=== PATIENT | female | born 1945 | race Caucasian/White ===

== ENCOUNTER 2016-12-22 13:12 | Day surgery (SDC) | payer MEDICARE ==
[2016-12-17 14:57] VITALS: BMI 28.3
[~2016-12-22 13:12] MED LIST: DEXAMETHASONE SOD PHOSPHATE 10 MG/ML 1 ML VIAL IV ONE; HYDROmorphone 1 MG/ML 1 ML SYRINGE IVP PRN; LACTATED RINGERS 1,000 ML IV SCH; ONDANSETRON 4 MG/2 ML VIAL IVP ONE
[2016-12-22] MEDS: PHENYLEPHRINE 10% OPHTH DROPS 5 ML BTL OP ONE ×4 (13:28→13:45)
[2016-12-22] MEDS: FLURBIPROFEN 0.03% OPHTH DROPS 2.5 ML BTL OP ONE ×3 (13:31→13:47)
[2016-12-22] MEDS: CYCLOPENTOLATE 1% OPHTH SOLN 2 ML BTL OP ONE ×3 (13:34→13:54)
[2016-12-22] MEDS ORDERED: LIDOCAINE 1% 20 ML VIAL (10MG/ML) FOR IV START INTRADERMA ONE (13:36)
[2016-12-22 13:52] VITALS: RESP 16
[2016-12-22] MEDS ORDERED: PROPOFOL 10 MG/ML 20 ML VIAL IV ONE (14:34)
[2016-12-22] MEDS ORDERED: LIDOCAINE 1% INJ 10MG/ML (20 ML MDV) ONE (14:34)
[2016-12-22] MEDS ORDERED: BALANCED SALT IRRIG SOLN COMB2 15 ML IRRIG.SOLN INTRAOCULA ONE (14:39)
[2016-12-22] MEDS ORDERED: HYALURONATE SODIUM INTRAOCULAR 1 EACH SYRINGE (10MG/ML) INTRAOCULA ONE (14:40)
[2016-12-22] MEDS ORDERED: EPINEPHrine (PF) 0.5 ML in BALANCED SALT IRRIG SOLN COMB2 500 ML IRRIGATION ONE (14:40)
--- NOTE | 2016-12-22 14:55 | P.OP ---
Date of Procedure: 12/22/16 Procedure(s) Performed: PREOPERATIVE DIAGNOSIS: Cataract, left eye. POSTOPERATIVE DIAGNOSIS: Cataract, left eye. OPERATION: Phacoemulsification cataract, left eye. DESCRIPTION OF PROCEDURE: The patient was taken to the preoperative holding area. Intravenous Propofol was given so as to bring about adequate sedation. The following mixture was given for local anesthesia: 5 mL of 2% lidocaine, 5 mL of 0.75% Marcaine, and 1 mL of Wydase. Approximately 4 mL was injected in the retrobulbar space of the surgical eye. Additional 1 mL was then directed to the temporal area of the surgical eye. This was performed to allow adequate neurological block of the facial muscles. The patient was revived and then taken into the operative room. The patient was prepped and draped in the usual sterile manner for the operative eye. A lid speculum was put into position. The conjunctiva was resected back from the limbus in the 12 o'clock position. Bleeding was controlled with electrocautery. A #69 blade was then used and a half-thickness scleral incision approximately 1-mm posterior to the limbus was made on bare sclera. This was shelved in the clear cornea using a crescent knife. Next a 15-degree blade was used to make a stab incision at the 3 o' clock position at the corneolimbal interface. Keratome blade was then used and the superior wound was extended into the anterior chamber. Viscoelastic was injected into the anterior chamber and to maintain its form. Next, a cystotome was used and a continuous anterior capsulotomy was made without difficulty. Hydrodissection using a blunt cannula and BSS was performed. Phaco probe was then employed and a groove extending from 12 to 6 o'clock in the lens was created. A Benedicto wand was used through the stab incision so as to perform a divide and conquer technique. Next an irrigation aspiration probe was utilized and any residual cortex was removed from the eye. Again, viscoelastic was injected into the anterior chamber. An Choco posterior chamber lens implant was placed in the cartridge and injected into the anterior chamber without difficulty. The [employer] hook was utilized to spin the lens into position and this was again performed without any difficulty. The irrigation and aspiration probe was again employed and any residual viscoelastic was removed from the eye. Then BSS was injected into the limbal stab incision and the anterior chamber re-inflated. The conjunctiva was reapproximated using electrocautery. One drop of 0.25% Timoptic was placed over the corneal along with TobraDex ophthalmic ointment. Two sterile patches and a Grewal eye shield were taped into position. The patient was transported to the recovery room in stable condition. Pathology: none sent Condition: stable Disposition: same day
[2016-12-22 15:13] VITALS: TEMP 97.5
[2016-12-22 15:15] VITALS: BP 113/63; PULSE 73
[2016-12-22] MEDS ORDERED: BUPIVACAINE (PF) 0.75% 5 ML, LIDOCAINE 4% (PF) 5 ML, HYALURONIDASE, HUMAN RECOMB 150 UNIT MISCELLANE ONE ×3 (23:00)
[2016-12-22] MEDS ORDERED: GENTAMICIN/PREDNISOL AC OPHTH OINT 3.5GM OPHTHALMIC ONE (23:00)
[2016-12-22] MEDS ORDERED: TIMOLOL 0.5% OPHTH SOLN (PF) 0.2 ML DROPERETTE OP ONE (23:00)
== END 2016-12-22 15:28 | disposition home or self-care (01) ==
LOC: OR 13:12
PROVIDERS: ATTEND Ophthalmology
DX: H26.9 Unspecified cataract (principal); I10 Essential (primary) hypertension; E78.5 Hyperlipidemia, unspecified; J44.9 Chronic obstructive pulmonary disease, unspecified; J45.909 Unspecified asthma, uncomplicated; Z87.891 Personal history of nicotine dependence; G47.33 Obstructive sleep apnea (adult) (pediatric); G40.909 Epilepsy, unspecified, not intractable, without status epilepticus; K21.9 Gastro-esophageal reflux disease without esophagitis; Z90.2 Acquired absence of lung [part of]; Z85.118 Personal history of other malignant neoplasm of bronchus and lung; Z79.51 Long term (current) use of inhaled steroids; Z79.899 Other long term (current) drug therapy; Z91.09 Other allergy status, other than to drugs and biological substances
CPT/HCPCS: 66984; V2632; J2001 ×2; J3470; J0171; J2704; 99152; 99153

== ENCOUNTER 2017-02-16 11:06 | Day surgery (SDC) | payer MEDICARE ==
[2017-02-10 13:02] VITALS: BMI 30.7
[~2017-02-16 11:06] MED LIST changes: -DEXAMETHASONE SOD PHOSPHATE 10 MG/ML 1 ML VIAL IV ONE; -HYDROmorphone 1 MG/ML 1 ML SYRINGE IVP PRN; +LIDOCAINE 1% 20 ML VIAL (10MG/ML) FOR IV START INTRADERMA ONE; -ONDANSETRON 4 MG/2 ML VIAL IVP ONE
[2017-02-16] MEDS: PHENYLEPHRINE 10% OPHTH DROPS 5 ML BTL OP ONE ×3 (11:19→11:37)
[2017-02-16] MEDS: FLURBIPROFEN 0.03% OPHTH DROPS 2.5 ML BTL OP ONE ×2 (11:21→11:40)
[2017-02-16] MEDS: CYCLOPENTOLATE 1% OPHTH SOLN 2 ML BTL OP ONE ×3 (11:24→11:44)
[2017-02-16 11:29] VITALS: RESP 16; TEMP 99.1
[2017-02-16] MEDS ORDERED: PROPOFOL 10 MG/ML 20 ML VIAL IV ONE (12:07)
[2017-02-16] MEDS ORDERED: BALANCED SALT IRRIG SOLN COMB2 15 ML IRRIG.SOLN INTRAOCULA ONE (12:15)
[2017-02-16] MEDS ORDERED: HYALURONATE SODIUM INTRAOCULAR 1 EACH SYRINGE (10MG/ML) INTRAOCULA ONE (12:16)
[2017-02-16] MEDS ORDERED: EPINEPHrine (PF) 0.5 ML in BALANCED SALT IRRIG SOLN COMB2 500 ML IRRIGATION ONE (12:17)
--- NOTE | 2017-02-16 12:30 | P.OP ---
Date of Procedure: 02/16/17 Procedure(s) Performed: PREOPERATIVE DIAGNOSIS: Cataract, right eye. POSTOPERATIVE DIAGNOSIS: Cataract, right eye. OPERATION: Phacoemulsification cataract, right eye. DESCRIPTION OF PROCEDURE: The patient was taken to the preoperative holding area. Intravenous Propofol was given so as to bring about adequate sedation. The following mixture was given for local anesthesia: 5 mL of 2% lidocaine, 5 mL of 0.75% Marcaine, and 1 mL of Wydase. Approximately 4 mL was injected in the retrobulbar space of the surgical eye. Additional 1 mL was then directed to the temporal area of the surgical eye. This was performed to allow adequate neurological block of the facial muscles. The patient was revived and then taken into the operative room. The patient was prepped and draped in the usual sterile manner for the operative eye. A lid speculum was put into position. The conjunctiva was resected back from the limbus in the 12 o'clock position. Bleeding was controlled with electrocautery. A #69 blade was then used and a half-thickness scleral incision approximately 1-mm posterior to the limbus was made on bare sclera. This was shelved in the clear cornea using a crescent knife. Next a 15-degree blade was used to make a stab incision at the 3 o' clock position at the corneolimbal interface. Keratome blade was then used and the superior wound was extended into the anterior chamber. Viscoelastic was injected into the anterior chamber and to maintain its form. Next, a cystotome was used and a continuous anterior capsulotomy was made without difficulty. Hydrodissection using a blunt cannula and BSS was performed. Phaco probe was then employed and a groove extending from 12 to 6 o'clock in the lens was created. A Benedicto wand was used through the stab incision so as to perform a divide and conquer technique. Next an irrigation aspiration probe was utilized and any residual cortex was removed from the eye. Again, viscoelastic was injected into the anterior chamber. An Choco posterior chamber lens implant was placed in the cartridge and injected into the anterior chamber without difficulty. The Sin[employer] [place] hook was utilized to spin the lens into position and this was again performed without any difficulty. The irrigation and aspiration probe was again employed and any residual viscoelastic was removed from the eye. Then BSS was injected into the limbal stab incision and the anterior chamber re-inflated. The conjunctiva was reapproximated using electrocautery. One drop of 0.25% Timoptic was placed over the corneal along with TobraDex ophthalmic ointment. Two sterile patches and a Grewal eye shield were taped into position. The patient was transported to the recovery room in stable condition. Pathology: none sent Condition: stable Disposition: same day
[2017-02-16 12:52] VITALS: BP 126/76; PULSE 70
[2017-02-16] MEDS ORDERED: BUPIVACAINE (PF) 0.75% 5 ML, LIDOCAINE 4% (PF) 5 ML, HYALURONIDASE, HUMAN RECOMB 150 UNIT MISCELLANE ONE ×3 (23:00)
[2017-02-16] MEDS ORDERED: GENTAMICIN/PREDNISOL AC OPHTH OINT 3.5GM OPHTHALMIC ONE (23:00)
[2017-02-16] MEDS ORDERED: TIMOLOL 0.5% OPHTH SOLN (PF) 0.2 ML DROPERETTE OP ONE (23:00)
== END 2017-02-16 13:10 | disposition home or self-care (01) ==
LOC: OR 11:06
PROVIDERS: ATTEND Ophthalmology
DX: H25.11 Age-related nuclear cataract, right eye (principal); I10 Essential (primary) hypertension; E78.5 Hyperlipidemia, unspecified; J44.9 Chronic obstructive pulmonary disease, unspecified; J45.909 Unspecified asthma, uncomplicated; G47.33 Obstructive sleep apnea (adult) (pediatric); K21.9 Gastro-esophageal reflux disease without esophagitis; R56.9 Unspecified convulsions; Z86.73 Personal history of transient ischemic attack (TIA), and cerebral infarction without residual deficits; Z87.891 Personal history of nicotine dependence; Z79.51 Long term (current) use of inhaled steroids; Z79.899 Other long term (current) drug therapy
CPT/HCPCS: 66984; V2632; J2001; J3470; J0171; J2704

== ENCOUNTER 2020-03-31 17:30 | Inpatient (IN) | payer MEDICARE ==
[2020-03-31 18:20] LABS: Basophils # (A) 0.1 k/uL (0-0.2); Basophils % (A) 1 %; Eosinophils # (A) 0.2 k/uL (0-0.7); Eosinophils % (A) 4 %; HCT 38.9 % (34.0-46.0); HGB 12.4 gm/dL (11.4-16.0); Lymphocytes # (A) 1.4 k/uL (1.0-4.8); Lymphocytes % (A) 25 %; MCH 27.9 pg (25.0-35.0); MCHC 31.9 g/dL (31.0-37.0); MCV 87.6 fL (80.0-100.0); Mean Platelet Volume 7.9; Monocytes # (A) 0.3 k/uL (0-1.0); Monocytes % (A) 6 %; Neutrophils # (A) 3.4 k/uL (1.3-7.7); Neutrophils % (A) 62 %; Platelet Count 219 k/uL (150-450); RBC 4.44 m/uL (3.80-5.40); RDW 14.1 % (11.5-15.5); WBC 5.5 k/uL (3.8-10.6)
[2020-03-31 18:28] LABS: ALT 17 U/L (4-34); AST 37 U/L (14-36); African American GFR (CKD) >90 (>60 ml/min/1.73 sqM); Albumin 3.6 g/dL (3.5-5.0); Alkaline Phosphatase 50 U/L (38-126); Anion Gap 9 mmol/L; Blood Urea Nitrogen 20 mg/dL (7-17); Calcium 9.1 mg/dL (8.4-10.2); Carbon Dioxide 23 mmol/L (22-30); Chloride 104 mmol/L (98-107); Glucose 90 mg/dL (74-99); Non-African American GFR(CKD) 88 (>60 ml/min/1.73 sqM); Potassium 4.4 mmol/L (3.5-5.1); Sodium 136 mmol/L (137-145); Total Bilirubin 0.4 mg/dL (0.2-1.3); Total Protein 6.9 g/dL (6.3-8.2)
[2020-03-31 18:33] LABS: INR 0.9 (<1.2); Partial Thromboplastin Time 24.3 sec (22.0-30.0); Prothrombin Time 9.9 sec (9.0-12.0)
--- NOTE | 2020-03-31 18:39 | ED ---
Dizziness HPI - General Chief Complaint: Syncope Stated Complaint: Syncope Time Seen by Provider: 03/31/20 17:40 Source: EMS Mode of arrival: EMS Limitations: no limitations - History of Present Illness Initial Comments: The patient is a 74-year-old female past medical history of COPD, on cancer in remission who presents to the emergency room after she had a syncopal episode. Son is at bedside and helps provide history. States that he was helping her set up a video Chat. He then noted that his mother's eyes rolled back in her head. She went completely unresponsive. She slipped down off the chair however the patient lowered her to the ground. He denies that he had her head. No seizure- like activity. No bowel or bladder incontinence. The time EMS arrived 10 minutes later the patient was "lethargic." she arrives to the emergency room doc rt and oriented. Denies having any chest pain or the incident. Does admit to shortness of breath. States this is chronic for her secondary to her diagnosis of COPD and previous lobectomy for lung cancer however states her breathing has been much more labored for her. She also reports to right lower calf cramping. Denies history of DVT or PE. No or externally swelling. Does report to a mild headache. No visual changes. Denies any unilateral numbness or weakness. No previous history of cardiac disease. No other alleviating, precipitating or modifying factors - Related Data Home Medications Medication Instructions Recorded Confirmed Omeprazole [PriLOSEC] 20 mg PO BID 04/23/16 03/31/20 Simvastatin [Zocor] 40 mg PO HS 04/23/16 03/31/20 Albuterol Sulfate [Ventolin HFA] 2 puff INHALATION RT-Q6H PRN 03/31/20 03/31/20 Alendronate Sodium [Fosamax] 70 mg PO TH 03/31/20 03/31/20 Aspirin EC [Ecotrin Low Dose] 81 mg PO DAILY 03/31/20 03/31/20 Difluprednate [Durezol] 2 drop RIGHT EYE BID 03/31/20 03/31/20 Escitalopram [Lexapro] 10 mg PO HS 03/31/20 03/31/20 Multivitamins, Thera [Multivitamin 1 tab PO DAILY 03/31/20 03/31/20 (formulary)] Tiotropium Br/Olodaterol HCl 2 spray INHALATION RT-DAILY 03/31/20 03/31/20 [Stiolto Respimat Inhal [place]] Allergies Allergy/AdvReac Type Severity Reaction Status Date / Time adhesive tape Allergy Rash/Hives Verified 03/31/20 21:59 Review of Systems ROS Statement: Those systems with pertinent positive or pertinent negative responses have been documented in the HPI. ROS Other: All systems not noted in ROS Statement are negative. Past Medical History Past Medical History: Asthma, Cancer, COPD, CVA/TIA, GERD/Reflux, Hyperlipidemia, Hypertension, Osteoarthritis (OA), Seizure Disorder, Sleep Apnea/CPAP/BIPAP Additional Past Medical History / Comment(s): hx of lung cancer with upper right lobe removed & received chemo & radiation tx (36 tx - last txs December 2015), barretts esophagus, hiatal hernia, incont of urine wears depends ,emphysema,tia, migraines, no c-pap machine, DDD. , SOB with activity. History of Any Multi-Drug Resistant Organisms: None Reported Past Surgical History: Bladder Surgery, Heart Catheterization, Hysterectomy, Tonsillectomy Additional Past Surgical History / Comment(s): rectocele,cystocele(3 sx total has mesh patch), lasik eye sx, cyst removed lt breast-benign,blephoplasty, sep 05 2015 had upper lobe rt lung removed for stage 3 cancer.had chemo and radiation - 36 tx. EPIDURAL INJ TO back. Past Anesthesia/Blood Transfusion Reactions: No Reported Reaction, Motion Sickness Past Psychological History: Depression Smoking Status: Former smoker - Past Family History Father Family Medical History: Liver Disease Additional Family Medical History / Comment(s): CIRRHOIS OF THE LIVER Mother Family Medical History: Congestive Heart Failure (CHF) Additional Family Medical History / Comment(s): LUNG DISEASE,02 DE[employer]ENDANT-SMOKED FROM AGE 13 TILL AGE 85. General Exam Limitations: no limitations Course Vital Signs 03/31/20 03/31/20 03/31/20 17:38 21:13 21:22 Temperature 98.2 F 98.0 F 98 F Pulse Rate 87 81 81 Respiratory 18 18 16 Rate Blood Pressure 114/84 136/76 136/78 O2 Sat by Pulse 93 L 97 98 Oximetry Medical Decision Making - Medical Decision Making Upon arrival the patient was placed into room 2. A thorough history and physica l exam was performed here patient is placed on supplemental oxygen. Laboratory studies were conducted. D-dimer elevated at 0.65. Urinalysis was positive for nitrates, small leukocyte esterase with many bacteria. Patient was given a dose of a [place] attics. Because of reported calf pain, shortness of breath and syncope did perform a CT of the patient's chest. CT of the brain was also performed. Chest CT demonstrates no pulmonary embolism. Pleural thickening an infiltrate and atelectasis and significant volume loss of the right upper lobe. Recurrent tumor could be considered. CT of the brain demonstrates no acute intracranial normality. I did discuss results with the patient. I did recommend hospital admission for echo, carotid studies for which the patient did agree. I discussed the case with Dr. Morales except admission. The patient was then transferred to floor in stable condition - Lab Data Result diagrams: 03/31/20 17:55 03/31/20 17:55 Lab Results 03/31/20 03/31/20 03/31/20 Range/Units 17:55 17:55 17:55 WBC 5.5 (3.8-10.6) k/uL RBC 4.44 (3.80-5.40) m/uL Hgb 12.4 (11.4-16.0) gm/dL Hct 38.9 (34.0-46.0) % MCV 87.6 (80.0-100.0) fL MCH 27.9 (25.0-35.0) pg MCHC 31.9 (31.0-37.0) g/dL RDW 14.1 (11.5-15.5) % Plt Count 219 (150-450) k/uL Neutrophils % 62 % Lymphocytes % 25 % Monocytes % 6 % Eosinophils % 4 % Basophils % 1 % Neutrophils # 3.4 (1.3-7.7) k/uL Lymphocytes # 1.4 (1.0-4.8) k/uL Monocytes # 0.3 (0-1.0) k/uL Eosinophils # 0.2 (0-0.7) k/uL Basophils # 0.1 (0-0.2) k/uL PT 9.9 (9.0-12.0) sec INR 0.9 (<1.2) APTT 24.3 (22.0-30.0) sec D-Dimer 0.65 H (<0.60) mg/L FEU Sodium 136 L (137-145) mmol/L Potassium 4.4 (3.5-5.1) mmol/L Chloride 104 (98-107) mmol/L Carbon Dioxide 23 (22-30) mmol/L Anion Gap 9 mmol/L BUN 20 H (7-17) mg/dL Creatinine 0.64 (0.52-1.04) mg/dL Est GFR (CKD-EPI)AfAm >90 (>60 ml/min/1.73 sqM) Est GFR (CKD-EPI)NonAf 88 (>60 ml/min/1.73 sqM) Glucose 90 (74-99) mg/dL Calcium 9.1 (8.4-10.2) mg/dL Total Bilirubin 0.4 (0.2-1.3) mg/dL AST 37 H (14-36) U/L ALT 17 (4-34) U/L Alkaline Phosphatase 50 (38-126) U/L Troponin I (0.000-0.034) ng/mL Total Protein 6.9 (6.3-8.2) g/dL Albumin 3.6 (3.5-5.0) g/dL Urine Color Urine Appearance (Clear) Urine pH (5.0-8.0) Ur Specific [place] (1.001-1.035) Urine Protein (Negative) Urine Glucose (UA) (Negative) Urine Ketones (Negative) Urine Blood (Negative) Urine Nitrite (Negative) Urine Bilirubin (Negative) Urine Urobilinogen (<2.0) mg/dL Ur Leukocyte Esterase (Negative) Urine RBC (0-5) /hpf Urine WBC (0-5) /hpf Urine Bacteria (None) /hpf Hyaline Casts (0-2) /lpf Urine Mucus (None) /hpf 03/31/20 03/31/20 Range/Units 17:55 19:00 WBC (3.8-10.6) k/uL RBC (3.80-5.40) m/uL Hgb (11.4-16.0) gm/dL Hct (34.0-46.0) % MCV (80.0-100.0) fL MCH (25.0-35.0) pg MCHC (31.0-37.0) g/dL RDW (11.5-15.5) % Plt Count (150-450) k/uL Neutrophils % % Lymphocytes % % Monocytes % % Eosinophils % % Basophils % % Neutrophils # (1.3-7.7) k/uL Lymphocytes # (1.0-4.8) k/uL Monocytes # (0-1.0) k/uL Eosinophils # (0-0.7) k/uL Basophils # (0-0.2) k/uL PT (9.0-12.0) sec INR (<1.2) APTT (22.0-30.0) sec D-Dimer (<0.60) mg/L FEU Sodium (137-145) mmol/L Potassium (3.5-5.1) mmol/L Chloride (98-107) mmol/L Carbon Dioxide (22-30) mmol/L Anion Gap mmol/L BUN (7-17) mg/dL Creatinine (0.52-1.04) mg/dL Est GFR (CKD-EPI)AfAm (>60 ml/min/1.73 sqM) Est GFR (CKD-EPI)NonAf (>60 ml/min/1.73 sqM) Glucose (74-99) mg/dL Calcium (8.4-10.2) mg/dL Total Bilirubin (0.2-1.3) mg/dL AST (14-36) U/L ALT (4-34) U/L Alkaline Phosphatase (38-126) U/L Troponin I <0.012 (0.000-0.034) ng/mL Total Protein (6.3-8.2) g/dL Albumin (3.5-5.0) g/dL Urine Color Yellow Urine Appearance Clear (Clear) Urine pH 5.0 (5.0-8.0) Ur Specific [place] 1.019 (1.001-1.035) Urine Protein Trace H (Negative) Urine Glucose (UA) Negative (Negative) Urine Ketones Negative (Negative) Urine Blood Negative (Negative) Urine Nitrite Positive H (Negative) Urine Bilirubin Negative (Negative) Urine Urobilinogen <2.0 (<2.0) mg/dL Ur Leukocyte Esterase Small H (Negative) Urine RBC 1 (0-5) /hpf Urine WBC 7 H (0-5) /hpf Urine Bacteria Many H (None) /hpf Hyaline Casts 1 (0-2) /lpf Urine Mucus Rare H (None) /hpf - EKG Data EKG Comments: EKG demonstrates a normal sinus rhythm with ventricular rate of 85. AR 144. Distress 86. QTC of 466. No acute ST segment elevations or depressions concern ing for ischemic changes Disposition Clinical Impression: Syncope and collapse, Acute exacerbation of chronic obstructive pulmonary disease (COPD) Disposition: ADMITTED IP TO THIS HOSP Condition: Stable Is patient prescribed a controlled substance at d/c from ED?: No Decision to Admit Reason: Admit from EC Decision Date: 03/31/20 Decision Time: 20:39
--- NOTE | 2020-03-31 18:39 | XR ---
EXAMINATION TYPE: XR chest 2V DATE OF EXAM: 03/31/2020 COMPARISON: 04/24/2016 HISTORY: Short of breath TECHNIQUE: 2 views FINDINGS: Heart and mediastinum are shifted to the right side. There is increased density right upper lobe with pleural thickening and elevation of the right pulmonary hilum. There is elevated right fermin phragm. Left lung is clear. There is no heart failure. IMPRESSION: Right upper lobe consolidation and volume loss consistent with treated lung cancer that h as progressed compared to 04/24/2016. There is further volume loss. No heart failure.
[2020-03-31 18:43] LABS: D-Dimer 0.65 mg/L FEU (<0.60)
--- NOTE | 2020-03-31 19:09 | CT ---
EXAMINATION TYPE: CT brain wo con DATE OF EXAM: 03/31/2020 COMPARISON: None HISTORY: syncopal episode with memory loss CT DLP: 1044.4 mGycm Automated exposure control for dose reduction was used. Ventricles have normal size. There is no mass effect nor midline shift. There is no sign of intracran ial hemorrhage. Calvarium is intact. There is high attenuation within the entire right globe. IMPRESSION: No acute intracranial abnormality. High attenuation in the right globe. Is not clear if this is a pro sthesis or relate to hemorrhage or calcification within the globe.
[2020-03-31 19:26] LABS: Appearance,Urine Clear (Clear); Bacteria,Urine Many /hpf; Bilirubin,Urine Negative (Negative); Blood,Urine Negative (Negative); Color,Urine Yellow; Glucose,Urine (UA) Negative (Negative); Hyaline Casts,Urine 1 /lpf (0-2); Ketones,Urine Negative (Negative); Leukocyte Esterase,Urine Small (Negative); Mucus,Urine Rare /hpf; Nitrite,Urine Positive (Negative); Protein,Urine Trace (Negative); RBC,Urine 1 /hpf (0-5); Specific Gravity,Urine 1.019 (1.001-1.035); Urobilinogen,Urine <2.0 mg/dL (<2.0); WBC,Urine 7 /hpf (0-5)
[2020-03-31] MEDS ORDERED: cefTRIAXone IN SWFI 1,000 MG/10 ML SYRINGE IVP STA (19:36)
--- NOTE | 2020-03-31 20:27 | CT ---
EXAMINATION TYPE: CT chest angio for PE DATE OF EXAM: 03/31/2020 COMPARISON: 04/26/2016 HISTORY: elevated d-dimer, SOB CT DLP: 219.3 mGycm Automated exposure control for dose reduction was used. CONTRAST: Performed with IV Contrast, patient injected with 68cc mL of Isovue 370. There are 3-D post processed images. There is pleural thickening and infiltrate right upper lobe. There is some cavitation in the posterio r right upper lobe. There is calcification at the superior aspect right pulmonary hilum. There is anmol vation of the right pulmonary hilum. Trachea is deviated to the right side. There is 5 mm noncalcifie d subpleural nodule in the posterior segment left upper lobe. Left lung is otherwise clear. There is moderate hiatal hernia. Heart is shifted to the right side. There is no pericardial effusion. There i s no pleural effusion. Thoracic aorta is atheromatous. There is no evidence of dissection. Ascending aorta measures 3.2 cm. The bony thorax appears intact. I see no focal bone destruction. I see no filling defects in the pulmonary arteries. There are clips at the superior right pulmonary h ilum. IMPRESSION: No evidence of pulmonary embolism. There is pleural thickening and infiltrate and atelectasis and sig nificant volume loss right upper lobe. Previous surgery. There is some progression of disease right u pper lobe compared to old exam. Tiny nodule left upper lobe slightly increased compared to old exam. Recurrent tumor in the right upper lobe should be considered in view of the increased pleural thicken ing.
[2020-03-31] MEDS ORDERED: NALOXONE 0.4 MG/ML 1 ML VIAL IV PRN (20:39)
--- NOTE | 2020-03-31 21:44 | US ---
EXAMINATION TYPE: US carotid duplex BILAT DATE OF EXAM: 03/31/2020 COMPARISON: CLINICAL HISTORY: syncope. Patient states having a seizure today. Patient states having low BP. EXAM MEASUREMENTS: RIGHT: Peak Systolic Velocity (PSV) cm/sec ----- Right CCA: 49.8 ----- Right ICA: 62.9 ----- Right ECA: 68.0 ICA/CCA ratio: 1.3 RIGHT: End Diastole cm/sec ----- Right CCA: 14.2 ----- Right ICA: 18.9 ----- Right ECA: 8.6 LEFT: Peak Systolic Velocity (PSV) cm/sec ----- Left CCA: 53.7 ----- Left ICA: 11.9 ----- Left ECA: 109.7 ICA/CCA ratio: 1.7 LEFT: End Diastole cm/sec ----- Left CCA: 11.9 ----- Left ICA: 21.5 ----- Left ECA: 7.9 VERTEBRALS (direction of flow): Right Vertebral: Antegrade Left Vertebral: Retrograde Rhythm: Normal No elevated velocities or significant stenosis. Retrograde left vertebral artery. Plaque visualized in left bulb and anterior distal right CCA. No wall thickening. IMPRESSION: There is antegrade flow in the vertebral arteries. The images and measurements suggest less than 25% stenosis in both internal carotid arteries. There is retrograde flow in the left vertebral artery unique t suggests stenosis of the proximal left subclavian artery. Criteria for Assigning % of Stenosis / Diameter reduction (Estimation based on the indirect measurements of the internal carotid artery velocities (ICA PSV). 1. Normal (no stenosis)=ICA PSV < 125 cm/s: ratio < 2.0: ICA EDV<40 cm/s. 2. Less than 50% stenosis=ICA PSV < 125 cm/s: ratio < 2.0: ICA EDV<40 cm/s. 3. 50 to 69% stenosis=ICA PSV of 125 to 230 cm/s: ration 2.0 ? 4.0: ICA EDV 40-100 cm/s. 4. Greater than 70% stenosis to near occlusion= ICA PSV > 230 cm/s: ratio > 4.0: ICA EDV > 100 cm/s. 5. Near occlusion= ICA PSV velocities may be low or undetectable: variable ratio and ICA EDV. 6. Total occlusion=unable to detect flow.
--- NOTE | 2020-04-01 00:24 | P.HPIM ---
History of Present Illness H&P Date: 03/31/20 Chief Complaint: syncope 74 year old female with lung cancer in remission, hypertension , CVA patient comes in after having an episode of syncope. patient has poor insight of what has happened, and claims to feel fine, and does not understand why she would have to stay in the hospital . she currently denies any SOB, headache, chest pain, nausea vomiting. denies any fever, chills, or URI symptoms. she reports recently traveling by car back from [place], making multiple stops as she had a woman with her in the car. she denies any leg swelling. or history of blood clots. patient only recalls feeling warm, and then woke up in an ambulance. patient son not available for interview at this time. history obtained by reviewing medical records and discussing case with ER. it seems that the patient was recording a video on a computer with her son, when suddenly she rolled back her eyes and stiffened up, and the son put her safely on the ground and notified ems, took about 10 minutes for her to start waking up. she does not recall the events. no report of mouth frothing, tongue biting, loss of bladder or bowel control . EMS noted that patient has been lehtargic upon their arrival. patient adds, that she has been chronically incontinence to urine , and since she has came back from [place] 5 days ago , she had two episoded of bowel incontinence while she is awake doing some chores. she denies any weight loss, denies any bleeding , no changes in her medications. she feels pretty fine at this time of interview. she does report overall she not iced her breathing have been getting worse over the past 6 months, she has history of lung cancer in remission, s/p lobectomy patient also reports that she has felt some warmth episodes in the past and was diagnosed with transient global amnesia back in [place] Review of Systems Pertinent positives as noted in HPI. All other systems were reviewed and are negative Past Medical History Past Medical History: Asthma, Cancer, COPD, CVA/TIA, GERD/Reflux, Hyperlipidemia, Hypertension, Osteoarthritis (OA), Seizure Disorder, Sleep Apnea/CPAP/BIPAP Additional Past Medical History / Comment(s): hx of lung cancer with upper right lobe removed & received chemo & radiation tx (36 tx - last txs December 2015), barretts esophagus, hiatal hernia, incont of urine wears depends ,emphysema,tia, migraines, no c-pap machine, DDD. , SOB with activity. History of Any Multi-Drug Resistant Organisms: None Reported Past Surgical History: Bladder Surgery, Heart Catheterization, Hysterectomy, Tonsillectomy Additional Past Surgical History / Comment(s): rectocele,cystocele(3 sx total has mesh patch), lasik eye sx, cyst removed lt breast-benign,blephoplasty, sep 05 2015 had upper lobe rt lung removed for stage 3 cancer.had chemo and radiation - 36 tx. EPIDURAL INJ TO back. Past Anesthesia/Blood Transfusion Reactions: No Reported Reaction, Motion Sickness Past Psychological History: Depression Smoking Status: Former smoker - Past Family History Father Family Medical History: Liver Disease Additional Family Medical History / Comment(s): CIRRHOIS OF THE LIVER Mother Family Medical History: Congestive Heart Failure (CHF) Additional Family Medical History / Comment(s): LUNG DISEASE,02 DEPENDANT-SMOKED FROM AGE 13 TILL AGE 85. Medications and Allergies Home Medications Medication Instructions Recorded Confirmed Type Omeprazole [PriLOSEC] 20 mg PO BID 04/23/16 03/31/20 History Simvastatin [Zocor] 40 mg PO HS 04/23/16 03/31/20 History Albuterol Sulfate [Ventolin HFA] 2 puff INHALATION RT-Q6H PRN 03/31/20 03/31/20 History Alendronate Sodium [Fosamax] 70 mg PO TH 03/31/20 03/31/20 History Aspirin EC [Ecotrin Low Dose] 81 mg PO DAILY 03/31/20 03/31/20 History Difluprednate [Durezol] 2 drop RIGHT EYE BID 03/31/20 03/31/20 History Escitalopram [Lexapro] 10 mg PO HS 03/31/20 03/31/20 History Multivitamins, Thera [Multivitamin 1 tab PO DAILY 03/31/20 03/31/20 History (formulary)] Tiotropium Br/Olodaterol HCl 2 spray INHALATION RT-DAILY 03/31/20 03/31/20 History [Stiolto Respimat Inhal [place]] Allergies Allergy/AdvReac Type Severity Reaction Status Date / Time adhesive tape Allergy Rash/Hives Verified 03/31/20 21:59 Physical Exam Vitals: Vital Signs Temp Pulse Resp BP Pulse Ox 03/31/20 21:13 98.0 F 81 18 136/76 97 03/31/20 17:38 98.2 F 87 18 114/84 93 L Intake and Output 03/31/20 03/31/20 03/31/20 06:59 14:59 22:59 Other: Weight 58.967 kg Constitutional: No acute distress, conversant, pleasant Eyes: Anicteric sclerae, moist conjunctiva, Pupils equal round reactive to light ENMT: NC/AT Oropharynx clear, no erythema, exudates Neck: Supple, FROM, no masses, or JVD No carotid bruits No thyromegaly Lungs: decrease breath sound on right side of the chest, normal breath sounds over the left side of the chest Clear to percussion Normal respiratory effort, no accessory muscle use Cardiovascular: Heart regular in rate and rhythm, No murmurs, gallops, or rubs No peripheral edema Abdominal: Soft Nontender, no guarding, rebound or rigidity Abdomen moving with respiration Normoactive bowel sounds No hepatomegaly, No splenomegaly No palpable mass No abdominal wall hernia noted Skin: Normal temperature, tone, texture, turgor No induration No subcutaneous nodules No rash, lesions No ulcers Extremities: No digital cyanosis No clubbing Pedal pulses intact and symmetrical Radial pulses intact and symmetrical No calf tenderness Psychiatric: Alert and oriented to person, place Appropriate affect fair judgement Neuro Muscles Strength 4/5 in all 4 extremities Sensation to light touch grossly present throughout Cranial nerves II-XII grossly intact No focal sensory deficits Lymphatics: no palpable cervical or supraclavicular , or inguinal lymph nodes Results CBC & Chem 7: 03/31/20 17:55 03/31/20 17:55 Labs: Abnormal Lab Results - Last 24 Hours (Table) 03/31/20 03/31/20 03/31/20 Range/Units 17:55 17:55 19:00 D-Dimer 0.65 H (<0.60) mg/L FEU Sodium 136 L (137-145) mmol/L BUN 20 H (7-17) mg/dL AST 37 H (14-36) U/L Urine Protein Trace H (Negative) Urine Nitrite Positive H (Negative) Ur Leukocyte Esterase Small H (Negative) Urine WBC 7 H (0-5) /hpf Urine Bacteria Many H (None) /hpf Urine Mucus Rare H (None) /hpf Assessment and Plan Assessment: 74 year old female with history of CVA< hypertension , lung cancer in remission, seizure , comes in after a syncopal episode with reported eye rolling and s tiffening admitted for further workup and rule out seizure. patient also reported some chest warmth and pressure rule out ACS. 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
[2020-04-01] MEDS ORDERED: IPRATROPIUM-ALBUTEROL 3 ML NEB INHALATION PRN (00:28)
[2020-04-01] MEDS: ESCITALOPRAM 10 MG TAB PO SCH ×2 (01:33→21:00)
[2020-04-01] MEDS: ATORVASTATIN 20 MG TAB PO SCH ×2 (01:33→21:35)
[2020-04-01 07:54] LABS: Basophils # (A) 0.1 k/uL (0-0.2); Basophils % (A) 2 %; Eosinophils # (A) 0.2 k/uL (0-0.7); Eosinophils % (A) 6 %; HCT 41.7 % (34.0-46.0); HGB 12.7 gm/dL (11.4-16.0); Lymphocytes # (A) 1.1 k/uL (1.0-4.8); Lymphocytes % (A) 27 %; MCH 26.9 pg (25.0-35.0); MCHC 30.4 g/dL (31.0-37.0); MCV 88.3 fL (80.0-100.0); Mean Platelet Volume 7.8; Monocytes # (A) 0.3 k/uL (0-1.0); Monocytes % (A) 6 %; Neutrophils # (A) 2.3 k/uL (1.3-7.7); Neutrophils % (A) 57 %; Platelet Count 232 k/uL (150-450); RBC 4.72 m/uL (3.80-5.40); RDW 14.2 % (11.5-15.5); WBC 4.1 k/uL (3.8-10.6)
[2020-04-01] MEDS ORDERED: SODIUM CHLORIDE 0.9% 1,000 ML IV SCH (08:45)
[2020-04-01] MEDS: ASPIRIN 81 MG PO SCH (08:48)
[2020-04-01] MEDS: PANTOPRAZOLE 40 MG TABLET PO SCH ×2 (08:48→21:35)
[2020-04-01] MEDS: HEPARIN SODIUM,PORCINE 5,000 UNIT/ML 1 ML VIAL SQ SCH ×3 (08:49→23:45)
[2020-04-01] MEDS: DIFLUPREDNATE RIGHT EYE SCH ×2 (08:49→21:36)
[2020-04-01 09:01] LABS: African American GFR (CKD) >90 (>60 ml/min/1.73 sqM); Anion Gap 9 mmol/L; Blood Urea Nitrogen 17 mg/dL (7-17); Calcium 8.9 mg/dL (8.4-10.2); Carbon Dioxide 28 mmol/L (22-30); Chloride 105 mmol/L (98-107); Glucose 86 mg/dL (74-99); Non-African American GFR(CKD) 86 (>60 ml/min/1.73 sqM); Potassium 4.2 mmol/L (3.5-5.1); Sodium 142 mmol/L (137-145)
[2020-04-01] MEDS ORDERED: SODIUM CHLORIDE 0.9% 500 ML 500 ML IV ONE (12:13)
--- NOTE | 2020-04-01 12:20 | P.CRDCN ---
History of Present Illness History of present illness: HISTORY OF PRESENTING ILLNESS This is a pleasant 74-year-old female past medical history significant for lung cancer status post right upper lobe resection, COPD, dyslipidemia and former nicotine dependence. 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 We have been asked to see in consultation for syncopal episode. According to the patient she had been sitting down on the floor in her living room conversing with her son and [id number]. She was getting ready to watch a video chat of her grandsons graduation. She stood up and sat down in the chair. She had been sitting for approximately 10 minutes when she all of a sudden started feeling extremely flushed. His last thing that she can recall. According to her son after she told them she felt warm all over her eyes started to roll back in her head her arms and her legs stuck out straight in front of her very rigidly and she was extremely disoriented. There was no actual loss of consciousness. According to the patient she had no symptoms of chest pain, shortness of breath, dizziness, palpitations, nausea or vomiting. The patient does not recall being diaphoretic however her son said she did feel warm. She does not recall events surrounding this until she was in the ambulance in route to the hospital. There is no EMS run sheet available for review. She states she has had similar type episodes twice in the past where she becomes disoriented and loses track of events. DIAGNOSTICS EKG reveals sinus mechanism with no acute ST or T wave abnormalities noted. Telemetry tracings unremarkable for an acute biju/tachy-arrhythmia. Chest xray right upper lobe consolidation and volume loss consistent with treated lung cancer and has progressed compared to April 2016, no overt heart failure noted. CTA of the chest negative for pulmonary embolism. Laboratory reviewed, CBC unremarkable, d-dimer 0.65, sodium 142, potassium 4.2, creatinine 0.69, initial troponin was negative repeat this morning was 0.049. Current cardiac medications include aspirin 81 mg daily and simvastatin 40 mg at bedtime. REVIEW OF SYSTEMS At the time of my exam: CONSTITUTIONAL: Denies fever or chills. CARDIOVASCULAR: Denies chest pain, shortness of breath, orthopnea, PND or palpitations. RESPIRATORY: Denies cough. GASTROINTESTINAL: Denies abdominal pain, diarrhea, constipation, nausea or vomiting. MUSCULOSKELETAL: Denies myalgias. NEUROLOGIC: Denies numbness, tingling or weakness. ENDOCRINE: Denies fatigue, weight change, polydipsia or polyurina. GENITOURINARY: Denies burning, hematuria or urgency with micturation. HEMATOLOGIC: Denies history of anemia or bleeding. PHYSICAL EXAMINATION Blood pressure 119/57 heart rate 66 afebrile and maintaining oxygen saturation on room air. CONSTITUTIONAL: No apparent distress. HEENT: Head is normocephalic. Pupils are equal, round. Sclerae anicteric. Mucous membranes of the mouth are moist. No JVD. No carotid bruit. CHEST EXAMINATION: Lungs are clear to auscultation. No chest wall tenderness is noted on palpation or with deep breathing. HEART EXAMINATION: Regular rate and rhythm. S1, S2 heard. No murmurs, gallops or rub. ABDOMEN: Soft, nontender. Positive bowel sounds. EXTREMITIES: 2+ peripheral pulses, no lower extremity edema and no calf tenderness. NEUROLOGIC EXAMINATION: Patient is awake, alert and oriented x3. ASSESSMENT Near syncope, no evidence of arrhythmia on telemetry. Dyslipidemia COPD History of lung cancer status post right upper lobe resection Former nicotine dependence PLAN Perform tilt table test to assess for orthostatic changes. If tilt table test is unremarkable recommend outpatient event monitoring and possible loop recorder implantation if event monitor is unremarkable. She did have one low blood pressure reading early this morning. Symptoms and story of event sound like could be related to a drop in her blood pressure, however could also be bradycardia. Thank you kindly for this consultation. Nurse Practitioner note has been reviewed, I agree with a documented findings and plan of care. Patient was seen and examined. Past Medical History Past Medical History: Asthma, Cancer, COPD, CVA/TIA, GERD/Reflux, Hyperlipidemia, Hypertension, Osteoarthritis (OA), Seizure Disorder, Sleep Apnea/CPAP/BIPAP Additional Past Medical History / Comment(s): hx of lung cancer with upper right lobe removed & received chemo & radiation tx (36 tx - last txs December 2015), barretts esophagus, hiatal hernia, incont of urine wears depends ,emphysema,tia, migraines, no c-pap machine, DDD. , SOB with activity. History of Any Multi-Drug Resistant Organisms: None Reported Past Surgical History: Bladder Surgery, Heart Catheterization, Hysterectomy, Tonsillectomy Additional Past Surgical History / Comment(s): rectocele,cystocele(3 sx total has mesh patch), lasik eye sx, cyst removed lt breast-benign,blephoplasty, sep 05 2015 had upper lobe rt lung removed for stage 3 cancer.had chemo and radiation - 36 tx. EPIDURAL INJ TO back. Past Anesthesia/Blood Transfusion Reactions: No Reported Reaction, Motion Sickness Past Psychological History: Depression Smoking Status: Former smoker - Past Family History Father Family Medical History: Liver Disease Additional Family Medical History / Comment(s): CIRRHOIS OF THE LIVER Mother Family Medical History: Congestive Heart Failure (CHF) Additional Family Medical History / Comment(s): LUNG DISEASE,02 DEPENDANT-SMOKED FROM AGE 13 TILL AGE 85. Medications and Allergies Home Medications Medication Instructions Recorded Confirmed Type Omeprazole [PriLOSEC] 20 mg PO BID 04/23/16 03/31/20 History Simvastatin [Zocor] 40 mg PO HS 04/23/16 03/31/20 History Albuterol Sulfate [Ventolin HFA] 2 puff INHALATION RT-Q6H PRN 03/31/20 03/31/20 History Alendronate Sodium [Fosamax] 70 mg PO TH 03/31/20 03/31/20 History Aspirin EC [Ecotrin Low Dose] 81 mg PO DAILY 03/31/20 03/31/20 History Difluprednate [Durezol] 2 drop RIGHT EYE BID 03/31/20 03/31/20 History Escitalopram [Lexapro] 10 mg PO HS 03/31/20 03/31/20 History Multivitamins, Thera [Multivitamin 1 tab PO DAILY 03/31/20 03/31/20 History (formulary)] Tiotropium Br/Olodaterol HCl 2 spray INHALATION RT-DAILY 03/31/20 03/31/20 History [Stiolto Respimat Inhal [place]] Allergies Allergy/AdvReac Type Severity Reaction Status Date / Time adhesive tape Allergy Rash/Hives Verified 03/31/20 21:59 Physical Exam Vitals: Vital Signs Temp Pulse Pulse Resp BP BP Pulse Ox 04/01/20 08:00 97.7 F 66 12 119/57 92 L 04/01/20 04:00 97.8 F 77 18 90/60 92 L 03/31/20 22:52 97.8 F 75 20 130/79 94 L 03/31/20 21:22 98 F 81 16 136/78 98 03/31/20 21:13 98.0 F 81 18 136/76 97 03/31/20 17:38 98.2 F 87 18 114/84 93 L Intake and Output 03/31/20 04/01/20 04/01/20 22:59 06:59 14:59 Other: Voiding Method Diaper Diaper # Voids 1 Weight 58.967 kg Results 04/01/20 07:30 04/01/20 07:30 Cardiac Enzymes 03/31/20 03/31/20 Range/Units 17:55 17:55 AST 37 H (14-36) U/L Troponin I <0.012 (0.000-0.034) ng/mL Coagulation 03/31/20 Range/Units 17:55 PT 9.9 (9.0-12.0) sec APTT 24.3 (22.0-30.0) sec CBC 03/31/20 04/01/20 Range/Units 17:55 07:30 WBC 5.5 4.1 (3.8-10.6) k/uL RBC 4.44 4.72 (3.80-5.40) m/uL Hgb 12.4 12.7 (11.4-16.0) gm/dL Hct 38.9 41.7 (34.0-46.0) % Plt Count 219 232 (150-450) k/uL Comprehensive Metabolic Panel 03/31/20 Range/Units 17:55 Sodium 136 L (137-145) mmol/L Potassium 4.4 (3.5-5.1) mmol/L Chloride 104 (98-107) mmol/L Carbon Dioxide 23 (22-30) mmol/L BUN 20 H (7-17) mg/dL Creatinine 0.64 (0.52-1.04) mg/dL Glucose 90 (74-99) mg/dL Calcium 9.1 (8.4-10.2) mg/dL AST 37 H (14-36) U/L ALT 17 (4-34) U/L Alkaline Phosphatase 50 (38-126) U/L Total Protein 6.9 (6.3-8.2) g/dL Albumin 3.6 (3.5-5.0) g/dL Current Medications Generic Name Dose Route Start Last Admin Trade Name Freq PRN Reason Stop Dose Admin Albuterol/Ipratropium 3 ml 04/01/20 00:28 Duoneb 0.5 Mg-3 Mg/3 Ml Soln INHALATION RT-QID PRN Shortness Of Breath Or Wheezing Aspirin 81 mg 04/01/20 09:00 Aspirin PO DAILY [facility] Atorvastatin Calcium 20 mg 04/01/20 00:44 04/01/20 01:33 Lipitor PO 20 mg HS JAMIE Administration Escitalopram Oxalate 10 mg 04/01/20 00:45 04/01/20 01:33 Lexapro PO 10 mg HS JAMIE Administration Formoterol Fumarate 20 mcg 04/01/20 08:00 Perforomist INHALATION RT-BID [facility] Heparin Sodium (Porcine) 5,000 unit 04/01/20 08:00 Heparin SQ Q8HR [facility] Naloxone HCl 0.2 mg 03/31/20 20:39 Narcan IV Q2M PRN Opioid Reversal Non-Formulary Medication 2 drop 04/01/20 09:00 Difluprednate [Durezol] RIGHT EYE BID [facility] Pantoprazole Sodium 40 mg 04/01/20 09:00 Protonix PO BID [facility] Intake and Output 03/31/20 04/01/20 04/01/20 22:59 06:59 14:59 Other: Voiding Method Diaper Diaper # Voids 1 Weight 58.967 kg 04/01/20 07:30 03/31/20 17:55
--- NOTE | 2020-04-01 12:31 | P.CNNES ---
History of Present Illness Consult date: 04/01/20 Requesting physician: Zane Coppola Reason for Consult: Syncope History of Present Illness: Patient is a 74-year-old female, brought to the hospital yesterday at 5:30 PM for possible seizure versus syncope. Patient states that yesterday she was sitting in the chair with her son and her son was helping her set up a video chat. Patient states that she suddenly started feeling very hot, started salivating, and then she passed out, and woke up in the ambulance. According to patient's son and [id number], she stiffened up in the arms and legs, and the family lowered her to the ground. No head injury. Patient did bite her lips from inside, but did not bite her tongue. No loss of control of urine. Patient was brought to the hospital. Her vital signs on arrival was blood pressure 114/84, pulse rate 87 and temperature 98.2. Patient underwent computed tomography scan of the head, which revealed no acute process. High attenuation in the right globe. The paranasal sinuses and external auditory canals are clear. Patient's blood tests shows normal CBC, PT/PTT, CMP, troponin is mildly elevated now 0.049. UA showed positive nitrite, small amount of leukocyte Estrace. 7 WBC, many bacteria. Carotid Doppler showed antegrade flow in the vertebral arteries. The images are measured suggest less than 25% stenosis in both ICAs. There is retrograde flow in the left vertebral artery, that suggests stenosis of the proximal left subclavian artery. EKG shows normal sinus rhythm. CTA of the chest showed no evidence of PE. There is pleural thickening and infiltrate and atelectasis and significant volume loss right upper lobe. Previous surgery. There is some progression of disease right upper lobe compared to the old exam. Tiny nodular left upper lobe slightly increased compared to the old exam. Recurrent tumor in the right upper lobe should be considered in view of the increased pleural thickening. Patient states that in January 2020 while she was in [place], she had an episode of loss of awareness. She was transferred does with transient global amnesia. Patient states that she was expecting accompanying at 9:30 AM. She does not remember when she went to the door, open the door and let them commands and neck since she came to, was 11:30 AM. Patient's friends informed her that when she opened the door, she had a glazy staring eyes. They put her in bed. No seizure-like activity documented at that time. Patient has history of lung cancer, that was diagnosed in 2013, underwent lobectomy in 2014. She had a metastatic deposit in the scalp, which was removed in January 2018. Patient has history of smoking 1-1/2 pack per day since age 15, quit in 1999. Patient denies diabetes. No alcohol. Patient states she has history of benign positional vertigo years ago, for which she used to be on meclizine. She hasn't had any BPV attack for long time. Patient states that she has been having dizzy episodes about 2 times a week to once every couple weeks. It can happen when she is sitting, feels funny, knows that if she would walk or stand up, she will fall. 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 Patient has decreased hearing. Review of Systems As above in detail. Denies chest pain shortness of breath wheezing or cough. Past Medical History Past Medical History: Asthma, Cancer, COPD, CVA/TIA, GERD/Reflux, Hyperlipidemia, Hypertension, Osteoarthritis (OA), Seizure Disorder, Sleep Apnea/CPAP/BIPAP Additional Past Medical History / Comment(s): hx of lung cancer with upper right lobe removed & received chemo & radiation tx (36 tx - last txs December 2015), barretts esophagus, hiatal hernia, incont of urine wears depends ,emphysema,tia, migraines, no c-pap machine, DDD. , SOB with activity. History of Any Multi-Drug Resistant Organisms: None Reported Past Surgical History: Bladder Surgery, Heart Catheterization, Hysterectomy, Tonsillectomy Additional Past Surgical History / Comment(s): rectocele,cystocele(3 sx total has mesh patch), lasik eye sx, cyst removed lt breast-benign,blephoplasty, sep 05 2015 had upper lobe rt lung removed for stage 3 cancer.had chemo and radiation - 36 tx. EPIDURAL INJ TO back. Past Anesthesia/Blood Transfusion Reactions: No Reported Reaction, Motion Sickness Past Psychological History: Depression Smoking Status: Former smoker - Past Family History Father Family Medical History: Liver Disease Additional Family Medical History / Comment(s): CIRRHOIS OF THE LIVER Mother Family Medical History: Congestive Heart Failure (CHF) Additional Family Medical History / Comment(s): LUNG DISEASE,02 DEPENDANT-SMOKED FROM AGE 13 TILL AGE 85. Medications and Allergies Home Medications Medication Instructions Recorded Confirmed Type Omeprazole [PriLOSEC] 20 mg PO BID 04/23/16 03/31/20 History Simvastatin [Zocor] 40 mg PO HS 04/23/16 03/31/20 History Albuterol Sulfate [Ventolin HFA] 2 puff INHALATION RT-Q6H PRN 03/31/20 03/31/20 History Alendronate Sodium [Fosamax] 70 mg PO TH 03/31/20 03/31/20 History Aspirin EC [Ecotrin Low Dose] 81 mg PO DAILY 03/31/20 03/31/20 History Difluprednate [Durezol] 2 drop RIGHT EYE BID 03/31/20 03/31/20 History Escitalopram [Lexapro] 10 mg PO HS 03/31/20 03/31/20 History Multivitamins, Thera [Multivitamin 1 tab PO DAILY 03/31/20 03/31/20 History (formulary)] Tiotropium Br/Olodaterol HCl 2 spray INHALATION RT-DAILY 03/31/20 03/31/20 History [Stiolto Respimat Inhal [place]] Fludrocortisone [Florinef] 0.2 mg PO DAILY #30 tab 04/02/20 Rx Allergies Allergy/AdvReac Type Severity Reaction Status Date / Time adhesive tape Allergy Rash/Hives Verified 03/31/20 21:59 Physical Examination - Vital Signs Vital Signs: Vital Signs Temp Pulse Pulse Resp BP BP Pulse Ox 04/01/20 08:00 97.7 F 66 12 119/57 92 L 04/01/20 04:00 97.8 F 77 18 90/60 92 L 03/31/20 22:52 97.8 F 75 20 130/79 94 L 03/31/20 21:22 98 F 81 16 136/78 98 03/31/20 21:13 98.0 F 81 18 136/76 97 03/31/20 17:38 98.2 F 87 18 114/84 93 L Intake and Output 03/31/20 04/01/20 04/01/20 22:59 06:59 14:59 Other: Voiding Method Diaper Diaper # Voids 1 Weight 58.967 kg On examination patient is an elderly female, in no acute distress. Patient is alert and awake, oriented to time place and person. Speech and lang uage functions are normal. Attention and concentration fund of knowledge is adequate. On cranial nerve exam patient has very decreased vision in the right eye from previous retinal detachment. Her right pupil is ovoid, nonreactive. Left pupil is round and reactive to light, visual freeman are full on confrontation with the left eye, extraocular muscles are intact with no nystagmus. face is symmetric, tongue protrudes the midline. Patient has evidence of bite agata on her lower lip. Palatal elevation and sensation normal. Hearing is decreased, shoulder shrug normal. On muscle strength testing there is no pronator drift and the strength is normal in arms and legs distally and proximally reflexes are diminished and plantars downgoing. Sensory touch is equal. No ataxia for [id number] testing. Tone and bulk of muscles normal. Patient has obvious right carotid bruit. S1 and S2 audible. Peripheral pulses are present. No edema. Abdomen soft nontender. Results - Laboratory Findings CBC and BMP: 04/02/20 06:33 04/02/20 06:33 Abnormal Lab Findings: Abnormal Labs 03/31/20 03/31/20 03/31/20 17:55 17:55 19:00 MCHC D-Dimer 0.65 H Sodium 136 L BUN 20 H AST 37 H Troponin I Urine Protein Trace H Urine Nitrite Positive H Ur Leukocyte Esterase Small H Urine WBC 7 H Urine Bacteria Many H Urine Mucus Rare H 04/01/20 04/01/20 07:30 07:30 MCHC 30.4 L D-Dimer Sodium BUN AST Troponin I 0.049 H* Urine Protein Urine Nitrite Ur Leukocyte Esterase Urine WBC Urine Bacteria Urine Mucus Assessment and Plan Assessment: * 74-year-old female admitted with possible syncope versus seizure. Patient did bite her inside of the lip and some tonic stiffening activity, suggestive of possible seizure. * History of lung cancer, rule out metastasis. * Abnormal carotid Doppler, with retrograde flow in the left vertebral artery, rule out vertebrobasilar insufficiency. * History of BPPV. * X tobacco use. * Right carotid bruit. Plan: * Patient had an EEG, which I will review. * MRI of the brain with and without contrast rule out metastasis. * MRA of the brain, and MRA of the neck to rule out vertebrobasilar insufficiency. Patient also has right carotid bruit. * Patient is undergoing tilt table test at this time. * Continue aspirin and statins. * Neurology will follow. Addendum: Patient had an EEG performed, which was technically limited because of excessive myogenic activity noted in bihemispheric region, otherwise was normal. No obvious epileptiform activity was seen. MRI of the brain with and without contrast revealed no acute process. Moderate to severe burden nonspecific white matter change, most commonly on the basis of chronic microangiopathy. Postcontrast images are limited given patient motion however no gross abnormal intracranial enhancement seen. MRA of the head and neck showed complete occlusion of the left vertebral artery. Suspected high-grade stenosis or occlusion of the left proximal subclavian artery, however extensive motion in the neck portion of the examination severely degrades the images. CTA neck is recommended. Partially visualized right pleural effusion at the right lung apex. No high-grade stenosis, occlusion or sizable intracranial aneurysm in the major intracranial vasculature. Patient had a tilt table test which according to the patient was positive, and was started on Florinef. I do not have official report of the tilt table test at this time. Suggest patient follow up with neurologist as outpatient and perhaps undergo prolonged/24-48 hours ambulatory EEG as outpatient. No indication for antiepileptic agent at this time, as all workup so far negative. Await CTA of neck.
[2020-04-01 13:22] LABS: Cholesterol 138 mg/dL (<200); HDL Cholesterol 51 mg/dL (40-60); LDL Cholesterol,Calculated 69 mg/dL (0-99); Triglycerides 90 mg/dL (<150)
[2020-04-01] MEDS ORDERED: FLUDROCORTISONE 0.1 MG TAB PO SCH (13:30)
[2020-04-01] MEDS ORDERED: SODIUM CHLORIDE 0.9% 1,000 ML IV STA (13:30)
--- NOTE | 2020-04-01 14:06 | P.PCN ---
Preoperative Diagnosis: Diagnosis Recurrent presyncope Twelve-lead EKG shows sinus rhythm normal PA narrow QRS normal ST segments Tilt table test per protocol Baseline blood pressure 126/72 mmHg Baseline heart rate 72 beats a minute Patient was tilted upright at an angle of 70 per protocol Immediate drop in blood pressure to 96/62 mmHg heart rate 78 beats a minute Thereafter blood pressure remained mostly in the 80s systolic with heart rates in the 80s to 90s Subsequently blood pressure dropped below 77 mmHg and was unrecordable. By It was 45 mmHg systolic Patient was unable to tolerate standing and felt very weak and dizzy When she was laid supine her blood pressure normalized to 129/72 mmHg Impression Normal twelve-lead ECG Orthostatic hypotension syndrome (OHS) associated with symptoms This explains her symptoms especially the one when she went to open the door but does not remember doing so and was deemed to have global cerebral ischemia
--- NOTE | 2020-04-01 15:00 | ECHOF ---
Referral Reason:syncope MEASUREMENTS -------- HEIGHT: 152.4 cm WEIGHT: 59.0 kg BP: 90/60 IVSd: 1.0 cm (0.6 - 1.1) LVIDd: 3.1 cm (3.9 - 5.3) LVPWd: 0.8 cm (0.6 - 1.1) IVSs: 1.0 cm LVIDs: 1.9 cm LVPWs: 1.1 cm EPSS: 2.0 cm MV E Iglesia: 0.72 m/s MV DecT: 169 ms MV A Iglesia: 0.86 m/s MV E/A Ratio: 0.84 RAP: 5.00 mmHg RVSP: 8.21 mmHg MV EF SLOPE: 150.46 mm/s (70 - 150) MV EXCURSION: 17.35 mm (> 18.000) FINDINGS -------- Sinus rhythm. This was a technically difficult study with suboptimal views. The left ventricular size is normal. There is mild concentric left ventricular hypertrophy. Overa ll left ventricular systolic function is normal with, an EF between 55 - 60 %. The right ventricle is normal in size. The left atrial size is normal. The right atrial size is normal. Lumason used The aortic valve is trileaflet and appears structurally normal. The mitral valve is normal. Mild mitral regurgitation is present. The tricuspid valve appears structurally normal. Trace tricuspid regurgitation present. Right loly tricular systolic pressure is normal at < 35 mmHg. There is no pulmonic regurgitation present. The aortic root size is normal. Normal inferior vena cava with normal inspiratory collapse consistent with estimated right atrial pre ssure of 5 mmHg. There is no pericardial effusion. CONCLUSIONS -------- 1. Sinus rhythm. 2. This was a technically difficult study with suboptimal views. 3. The left ventricular size is normal. 4. There is mild concentric left ventricular hypertrophy. 5. Overall left ventricular systolic function is normal with, an EF between 55 - 60 %. 6. The right ventricle is normal in size. 7. The left atrial size is normal. 8. The right atrial size is normal. 9. Lumason used 10. The aortic valve is trileaflet and appears structurally normal. 11. The mitral valve is normal. 12. Mild mitral regurgitation is present. 13. The tricuspid valve appears structurally normal. 14. Trace tricuspid regurgitation present. 15. Right ventricular systolic pressure is normal at < 35 mmHg. 16. There is no pulmonic regurgitation present. 17. The aortic root size is normal. 18. Normal inferior vena cava with normal inspiratory collapse consistent with estimated right atrial pressure of 5 mmHg. 19. There is no pericardial effusion. GRIEVANCE COORDINATOR: Sandrita Waterman RDCS
--- NOTE | 2020-04-01 16:03 | P.PN ---
Subjective Progress Note Date: 04/01/20 (delayed charting seen at 1150) Principal diagnosis: syncope Patient is a 74-year-old female history of lung cancer in the right upper lobe, Tierney's esophagus, COPD, stroke, GERD, hypertension, and dyslipidemia who presented to the emergency department after loss of c onsciousness. In the ER she underwent an extensive evaluation. On arrival her vital signs were within normal limits. Initial laboratory analysis showed a d- dimer that was normal for age adjustment, sodium 136, BUN 20, AST 37. Initial troponin was negative. Initial EKG showed normal sinus rhythm without any significant ST-T wave changes. CT head was performed which showed no acute intracranial abnormality but high attenuation of the right globe. Chest x-ray showed right upper lobe consolidation and volume loss consistent with treated lung cancer that has progressed compared to 04/24/16 as there is further volume loss. She underwent a CT of the chest which shows no evidence of pulmonary embolism but pleural thickening and infiltrate along with atelectasis and significant volume loss of the right upper lobe. There is some progression of disease of the right upper lobe compared old exam and a tiny nodule in the left upper lobe. She underwent a carotid Doppler that did not show any evidence of significant stenosis. She underwent an echo which showed an ejection fraction of 55-60%. She was seen by cardiology and ultimately underwent a tilt table test which was positive. She was seen by neurology who felt that seizure cannot be fully ruled out as well as metastatic disease. They recommended EEG, MRI, and MRA of the brain. Patient seen and examined at bedside. She feels better after recovering from her tilt table testing. We discussed the need for Florinef and compression stockings and she is in agreement with trialing knees. She denies any significant chest pain shortness of breath, nausea, or vomiting. She denies any current dizziness, lightheadedness, or syncope. Objective - Vital Signs Vital signs: Vital Signs Temp 97.7 F 04/01/20 08:00 Pulse 66 04/01/20 08:00 Resp 12 04/01/20 08:00 BP 119/57 04/01/20 08:00 Pulse Ox 92 L 04/01/20 08:00 Intake & Output 03/31/20 04/01/20 04/01/20 18:59 06:59 18:59 Intake Total 80 Balance 80 Weight 58.967 kg Intake: Intake, IV Titration 80 Amount Sodium Chloride 0.9% 1, 80 000 ml @ 20 mls/hr IV . Q24H [facility] Rx#:[id number] Other: Voiding Method Diaper # Voids 1 - Exam General: non toxic, no distress, appears at stated age Derm: warm, dry Head: atraumatic, normocephalic, symmetric Eyes: EOMI, no lid lag, anicteric sclera Mouth: no lip lesion, mucus membranes moist Cardiovascular: S1S2 reg, no murmur, positive posterior tibial pulse bilateral, Lungs: CTA bilateral, no rhonchi, no rales , no accessory muscle use Abdominal: soft, nontender to palpation, no guarding, no appreciable organomegaly Ext: no gross muscle atrophy, no edema, no contractures Neuro: CN II-XI grossly intact, no focal neuro deficits Psych: Alert, oriented, appropriate affect - Labs CBC & Chem 7: 04/01/20 07:30 04/01/20 07:30 Labs: Abnormal Lab Results - Last 24 Hours (Table) 03/31/20 03/31/20 03/31/20 Range/Units 17:55 17:55 19:00 MCHC (31.0-37.0) g/dL D-Dimer 0.65 H (<0.60) mg/L FEU Sodium 136 L (137-145) mmol/L BUN 20 H (7-17) mg/dL AST 37 H (14-36) U/L Troponin I (0.000-0.034) ng/mL Urine Protein Trace H (Negative) Urine Nitrite Positive H (Negative) Ur Leukocyte Esterase Small H (Negative) Urine WBC 7 H (0-5) /hpf Urine Bacteria Many H (None) /hpf Urine Mucus Rare H (None) /hpf 04/01/20 04/01/20 Range/Units 07:30 07:30 MCHC 30.4 L (31.0-37.0) g/dL D-Dimer (<0.60) mg/L FEU Sodium (137-145) mmol/L BUN (7-17) mg/dL AST (14-36) U/L Troponin I 0.049 H* (0.000-0.034) ng/mL Urine Protein (Negative) Urine Nitrite (Negative) Ur Leukocyte Esterase (Negative) Urine WBC (0-5) /hpf Urine Bacteria (None) /hpf Urine Mucus (None) /hpf Assessment and Plan Assessment: Syncope, orthostatic possible neurocardiogenic component -Florinef, compression stockings -Repeat orthostatics in a.m. -Cardiology recommendations appreciated -Neurology recommendations appreciated: Rule out seizure with EEG, rule out metastasis with MRI/MRA of the brain -telemetry monitoring -CT head without any acute process, echocardiogram with ejection fraction 55- 60%, carotid Dopplers without any significant stenosis -CTA negative for pulmonary embolism Dyslipidemia -Statin COPD without exacerbation -Continue appear perforomist -when necessary bronchodilators History of lung cancer -Increased pleural thickening in the right upper lobe -Outpatient follow-up Elevated troponin -Not diagnostic of acute coronary syndrome -Normalized on repeat -No need for further monitoring Chronic: GERD Osteoarthritis Obstructive sleep apnea Tierney's esophagus Hiatal hernia TIA Migraine headache DVT prophylaxis: Heparin Discussed with: patient,nursing Anticipated discharge: in AM Anticipated discharge place: home A total of 35 minutes was spent on the care of this complex patient more than 50% of the time was spent in counseling and care coordination.
--- NOTE | 2020-04-01 16:16 | EEG ---
ELECTROENCEPHALOGRAM REPORT DATE OF SERVICE: 04/01/2020. PREAMBLE: This is a 74-year-old female with a recent history of syncope versus seizure. This study is performed to evaluate for any epileptiform activity. EEG FINDINGS: This is a 21 channel routine EEG recording in a patient utilizing 10/20 international system with bipolar referential montage. The recording is technically poor because of presence of significant myogenic activity throughout the study. On changing the filtration, it appears patient's background consists of well developed and regulated moderate voltage activity 9 Hz alpha. Background is posterior dominant and reactive to eye opening and closing. Photic driving response was not seen. There is some drowsiness and stage II sleep was seen with appearance of vertex waves and K complex. More deeper stages of sleep were not seen. EKG rhythm lead revealed no arrhythmia. No focal or generalized epileptiform activity was seen. IMPRESSION: This is a technically limited study due to presence of excessive myogenic activity. Otherwise, the EEG was normal during wakefulness, drowsiness and brief stage 2 sleep. No definitive epileptiform activity was seen. Normal EEG does not rule out underlying seizure disorder. If your suspicion for seizures is high, suggest prolonged, sleep- deprived EEG. MMODL / IJN: [id number] /
--- NOTE | 2020-04-01 16:41 | MR ---
EXAMINATION TYPE: MR brain wo/w con DATE OF EXAM: 04/01/2020 COMPARISON: CT brain dated 03/31/2020 HISTORY: New onset seizure vs syncope TECHNIQUE: Multiplanar, multisequence images of the brain and brainstem is performed without and with IV contras t, utilizing 7 mL intravenous Gadavist . FINDINGS: Diffusion weighted images demonstrate no evidence of a recent infarct or other diffusion ab normality. There is no extra-axial fluid collection. There are multiple foci and confluent areas of T2/FLAIR hyperintensity in the periventricular and subcortical white matter most commonly on the basi s of chronic microangiopathy. The ventricular system and cisternal spaces are normal in size and appe arance. The brain volume is age appropriate. Midline structures demonstrate normal morphology. Mesial temporal lobes are symmetric. There is some patient motion on the coronal imaging, slightly dilation The craniocervical junction appears within normal limits. The dural venous sinuses appear patent. The visualized sinuses are clear other than sc ant mucosal thickening of the maxillary and ethmoid sinuses. There is mild rightward nasal septal dev iation. 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 Postcontrast T1-weighted imaging demonstrates patient motion, somewhat limiting the exam. However, no gross abnormal intracranial enhancement is seen. IMPRESSION: 1. No acute infarct, midline shift or mass effect. 2. Moderate to severe burden nonspecific white matter change, most commonly on the basis of chronic m icroangiopathy. 3. 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 4. Post contrast images are limited given patient motion however no gross abnormal intracranial enhan cement seen.
--- NOTE | 2020-04-01 16:50 | MR ---
EXAMINATION TYPE: MR angio head wo/neck wo/w con DATE OF EXAM: 04/01/2020 COMPARISON: Carotid ultrasound dated 03/31/2020 HISTORY: New onset seizure vs syncope TECHNIQUE: Time of flight images focusing on the [place] of [place] were performed without contrast.. 2-D and 3-D postprocessing imaging is performed. FINDINGS: Images are markedly limited given patient motion, particularly of the neck. No high-grade s tenosis or occlusion of the common carotid arteries, carotid bulbs or cervical portions of the credit intern al carotid arteries. Tortuosity in course is seen of the proximal right common carotid artery. The le ft vertebral artery is occluded at its origin and throughout the neck. The right vertebral artery is patent and unremarkable. There is some presumably retrograde flow in the left vertebral artery within the distal aspect. A prominent infundibulum is seen at the origin of the posterior communicating art felix on the right. Bilateral posterior communicating arteries are present. No sizable intracranial ane urysm or large vessel intracranial vascular occlusion. There is partial visualization of a right-sided pleural effusion. The left subclavian artery appears unopacified proximally. IMPRESSION: 1. Complete occlusion of the left vertebral artery. 2. Suspected high-grade stenosis or occlusion of the left proximal subclavian artery however extensiv e motion in the neck portion of the examination severely degrades the images. CTA neck is recommended to further assess stenosis or occlusion as acquisition time is much shorter. 3. Partially visualized right pleural effusion at the right lung apex. 4. No high-grade stenosis, occlusion or sizable intracranial aneurysm in the major intracranial vascu lature. A [place] level critical message alert has been initiated for Zane Coppola MD via the [employer] Critical Results System on 04/01/2020 4:47 PM. This message alert has been sent to Zane Murphy od, MD via the preferences provided by the clinician for the receipt of Radiology Critical Findings. Message ID [id number].
--- NOTE | 2020-04-01 20:02 | P.PN ---
Progress Note - Text Progress Note Date: 04/01/20 received notification regarding abnormal result of MRA head and neck , complete occlusion of the left vertebral artery , suspected high grade stenosis or occlusion of the left proximal subclavian artery , neurology aware and awaiting CTA of head and neck for further evaluation due to motion artifact on the MRI test
[2020-04-01] MEDS ORDERED: ATORVASTATIN 20 MG TAB PO SCH (21:00)
--- NOTE | 2020-04-01 21:09 | CT ---
EXAMINATION TYPE: CT angio neck DATE OF EXAM: 04/01/2020 COMPARISON: MRA same day HISTORY: 74-year-old female Left vertebral and subclavian occlusion TECHNIQUE: Contiguous axial scanning of the neck performed with IV Contrast, patient injected with 10 0 mL of Isovue 370. Coronal/sagittal MIP reconstructions performed. 3-D reconstructions generated on a dedicated independent workstation. CT DLP: 319.4 mGycm Automated exposure control for dose reduction was used. FINDINGS: Extensive consolidation and distortion within the visualized posterior right upper lung. 5 mm posteri or left upper lobe pulmonary nodule. Background moderate centrilobular. Moderate atherosclerotic arch calcifications. There may be a moderate to severe focal atherosclerotic narrowing at the origin of the right brachioc ephalic artery. Tortuous right common carotid artery. Right internal carotid artery is patent. The left common carotid artery has a very close takeoff to the brachiocephalic artery and appears pat ent. Moderate atherosclerotic calcification at the left carotid bulb with mild, less than 40% proximal ICA narrowing. The vertebral arteries are codominant and patent throughout their course. There is a 1.5 to 1.7 cm long segment of calcified occlusion of the left subclavian artery at its barby gin. The occluded segment terminates prior to the takeoff of the vertebral artery. Degenerative grade 1 anterolisthesis at C3-C4 and C4-C5. IMPRESSION: 1. CORRELATING FOR ANY RELEVANT ONCOLOGIC HISTORY REGARDING DISTORTION AND CONSOLIDATION WITHIN THE P OSTERIOR RIGHT UPPER LUNG. MODERATE COPD. 5 MM POSTERIOR LEFT UPPER LOBE PULMONARY NODULE CAN BE FOLL OWED CLINICALLY INDICATED. 2. MODERATE TO SEVERE FOCAL ATHEROSCLEROTIC STENOSIS AT THE ORIGIN OF THE BRACHIOCEPHALIC ARTERY. 3. MILD, LESS THAN 40% PROXIMAL LEFT ICA NARROWING. NO HEMODYNAMICALLY SIGNIFICANT RIGHT ICA STENOSIS . 4. A 1.5 TO 1.7 CM LONG SEGMENT OF CALCIFIED OCCLUSION OF THE LEFT SUBCLAVIAN ARTERY BEGINNING AT ITS ORIGIN. THE OCCLUDED SEGMENT TERMINATES PRIOR TO THE TAKEOFF OF THE LEFT VERTEBRAL ARTERY. CORRELATE FOR ANY SYMPTOMS OF SUBCLAVIAN STEAL SYNDROME. 5. THE VERTEBRAL ARTERIES APPEAR PATENT AND OPACIFIED.
[2020-04-02 03:42] LABS: Hemoglobin A1C 5.5 % (4.0-6.0)
[2020-04-02 04:45] VITALS: TEMP 97.7
[2020-04-02 08:13] LABS: HCT 38.4 % (34.0-46.0); HGB 12.2 gm/dL (11.4-16.0); MCH 28.2 pg (25.0-35.0); MCHC 31.9 g/dL (31.0-37.0); MCV 88.3 fL (80.0-100.0); Mean Platelet Volume 9.1; Platelet Count 212 k/uL (150-450); RBC 4.35 m/uL (3.80-5.40); RDW 14.2 % (11.5-15.5); WBC 4.3 k/uL (3.8-10.6)
[2020-04-02] MEDS: FORMOTEROL FUMARATE 20 MCG/2 ML NEBU INHALATION SCH (08:26)
[2020-04-02 08:36] VITALS: BP 117/72; PULSE 78; RESP 18
[2020-04-02] MEDS: HEPARIN SODIUM,PORCINE 5,000 UNIT/ML 1 ML VIAL SQ SCH (08:37)
[2020-04-02] MEDS: PANTOPRAZOLE 40 MG TABLET PO SCH (08:37)
[2020-04-02] MEDS: ASPIRIN 81 MG PO SCH (08:37)
[2020-04-02] MEDS ORDERED: FLUDROCORTISONE 0.1 MG TAB PO SCH (09:00)
[2020-04-02 09:05] LABS: African American GFR (CKD) >90 (>60 ml/min/1.73 sqM); Anion Gap 7 mmol/L; Blood Urea Nitrogen 15 mg/dL (7-17); Calcium 8.9 mg/dL (8.4-10.2); Carbon Dioxide 24 mmol/L (22-30); Chloride 108 mmol/L (98-107); Glucose 86 mg/dL (74-99); Non-African American GFR(CKD) 88 (>60 ml/min/1.73 sqM); Sodium 139 mmol/L (137-145)
[2020-04-02] MEDS: DIFLUPREDNATE RIGHT EYE SCH (09:33)
--- NOTE | 2020-04-02 10:43 | P.DS ---
Providers Date of admission: 03/31/20 20:42 Expected date of discharge: 04/02/20 Attending physician: Zane Coppola MD Consults: 03/31/20 20:40 Consult Physician Urgent Consulting Provider: [facility] Consult Reason/Comments: acute syncope Do you want consulting provider notified?: Yes 04/01/20 00:28 Consult Physician Routine Consulting Provider: Leif Arias Consult Reason/Comments: syncope Do you want consulting provider notified?: Yes, Notify in am 04/02/20 08:06 Consult Physician Routine Consulting Provider: Zakiya Allen Consult Reason/Comments: subclavian steel Do you want consulting provider notified?: Yes Primary care physician: Christina Rob Hospital Course: Discharge Diagnosis: Syncope, due to orthostatic hypotension (positive tilt table) left subclavian occlusion, 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 In the ER she underwent an extensive evaluation. On arrival her vital signs were within normal limits. Initial laboratory analysis showed a d- dimer that was normal for age adjustment, sodium 136, BUN 20, AST 37. Initial troponin was negative. Initial EKG showed normal sinus rhythm without any significant ST-T wave changes. CT head was performed which showed no acute intracranial abnormality but high attenuation of the right globe. Chest x-ray showed right upper lobe consolidation and volume loss consistent with treated lung cancer that has progressed compared to 04/24/16 as there is further volume loss. She underwent a CT of the chest which shows no evidence of pulmonary embolism but pleural thickening and infiltrate along with atelectasis and significant volume loss of the right upper lobe. There is some progression of disease of the right upper lobe compared old exam and a tiny nodule in the left upper lobe. She underwent a carotid Doppler that did not show any evidence of significant stenosis. She underwent an echo which showed an ejection fraction of 55-60%. She was seen by cardiology and ultimately underwent a tilt table test which was positive. She was seen by neurology who felt that seizure cannot be fully ruled out as well as metastatic disease. They recommended EEG, MRI, and MRA of the brain. EEG without seizure focus, MRI with chronic microangiopathy, MRA with occlusion of left vertebral artery and possible occlusion of left subclavian. CTA neck done whichc confirmed occlusion of left subclavian. She was started on florinef and tolerated this well. She was seen by Dr. Cabral of vascular and cleared for discharge with follow-up in the clinic. She has a PET scan scheduled on April 08 and oncology follow-up with Dr. Gar out of [facility]. She was determined stable for discharge. Patient seen and examined at bedside. Feeling well, no light headedness, dizziness, chest pain, or shortness of breath. Vital signs reviewed and stable. General: non toxic, no distress, appears at stated age Derm: warm, dry Head: atraumatic, normocephalic, symmetric Eyes: EOMI, no lid lag, anicteric sclera Mouth: no lip lesion, mucus membranes moist Cardiovascular: S1S2 reg, no murmur, positive posterior tibial pulse bilateral, Lungs: CTA bilateral, no rhonchi, no rales , no accessory muscle use Psych: Alert, oriented, appropriate affect A total of 25 minutes of time were spent preparing this complex discharge summary . Patient Condition at Discharge: Stable Plan - Discharge Summary Discharge Rx Participant: No New Discharge Prescriptions: New Fludrocortisone [Florinef] 0.2 mg PO DAILY #30 tab Continue Simvastatin [Zocor] 40 mg PO HS Omeprazole [PriLOSEC] 20 mg PO BID Albuterol Sulfate [Ventolin HFA] 2 puff INHALATION RT-Q6H PRN PRN Reason: Shortness Of Breath Tiotropium Br/Olodaterol HCl [Stiolto Respimat Inhal Starr] 2 spray INHALATION RT-DAILY Multivitamins, Thera [Multivitamin (formulary)] 1 tab PO DAILY Difluprednate [Durezol] 2 drop RIGHT EYE BID Aspirin EC [Ecotrin Low Dose] 81 mg PO DAILY Escitalopram [Lexapro] 10 mg PO HS Alendronate Sodium [Fosamax] 70 mg PO TH Discharge Medication List Omeprazole [PriLOSEC] 20 mg PO BID 04/23/16 [History] Simvastatin [Zocor] 40 mg PO HS 04/23/16 [History] Albuterol Sulfate [Ventolin HFA] 2 puff INHALATION RT-Q6H PRN 03/31/20 [History] Alendronate Sodium [Fosamax] 70 mg PO TH 03/31/20 [History] Aspirin EC [Ecotrin Low Dose] 81 mg PO DAILY 03/31/20 [History] Difluprednate [Durezol] 2 drop RIGHT EYE BID 03/31/20 [History] Escitalopram [Lexapro] 10 mg PO HS 03/31/20 [History] Multivitamins, Thera [Multivitamin (formulary)] 1 tab PO DAILY 03/31/20 [History] Tiotropium Br/Olodaterol HCl [Stiolto Respimat Inhal Starr] 2 spray INHALATION RT-DAILY 03/31/20 [History] Fludrocortisone [Florinef] 0.2 mg PO DAILY #30 tab 04/02/20 [Rx] Follow up Appointment(s)/Referral(s): Rayo Shafer MD [STAFF PHYSICIAN] - 2 Weeks Christina Rob DO [Primary Care Provider] - 1-2 days Jose Cabral DO [STAFF PHYSICIAN] - 1 Week Activity/Diet/Wound Care/Special Instructions: Activity: as tolerated no driving Diet: heart healthy Discharge Disposition: HOME SELF-CARE
--- NOTE | 2020-04-02 11:34 | P.PN ---
Subjective Progress Note Date: 04/02/20 Patient feeling fine. No further syncopal spells. No new symptoms. Denies headache, or any new problem with the vision. Objective - Vital Signs Vital signs: Vital Signs Temp 97.7 F 04/02/20 08:35 Pulse 78 04/02/20 08:35 Resp 18 04/02/20 08:35 BP 117/72 04/02/20 08:35 Pulse Ox 91 L 04/02/20 08:35 Intake & Output 04/01/20 04/02/20 04/02/20 18:59 06:59 18:59 Intake Total 80 390 Balance 80 390 Intake: Intake, IV Titration 80 60 Amount Sodium Chloride 0.9% 1, 80 60 000 ml @ 20 mls/hr IV . Q24H [facility] Rx#:[id number] Oral 330 Other: Voiding Method Toilet # Voids 1 - Exam Essentially unchanged. - Labs CBC & Chem 7: 04/02/20 06:33 04/02/20 06:33 Labs: Abnormal Lab Results - Last 24 Hours (Table) 04/02/20 Range/Units 06:33 Chloride 108 H (98-107) mmol/L Microbiology - Last 24 Hours (Table) 03/31/20 20:48 Blood Culture - Preliminary Blood No Growth after 24 hours Assessment and Plan Assessment: * 74-year-old female admitted with possible syncope versus seizure. Patient did bite her inside of the lip and some tonic stiffening activity, suggestive of possible seizure. * History of lung cancer, rule out metastasis. * Abnormal carotid Doppler, with retrograde flow in the left vertebral artery, rule out vertebrobasilar insufficiency. * History of BPPV. * X tobacco use. * Right carotid bruit. Plan: EEG was technically limited because of excessive myogenic activity noted in bihemispheric region, otherwise was normal. No obvious epileptiform activity was seen. MRI of the brain with and without contrast revealed no acute process. Moderate to severe burden nonspecific white matter change, most commonly on the basis of chronic microangiopathy. Postcontrast images are limited given patient motion however no gross abnormal intracranial enhancement seen. MRA of the head and neck showed complete occlusion of the left vertebral artery. Suspected high-grade stenosis or occlusion of the left proximal subclavian artery, however extensive motion in the neck portion of the examination severely degrades the images. CTA neck is recommended. Partially visualized right pleural effusion at the right lung apex. No high-grade stenosis, occlusion or sizable intracranial aneurysm in the major intracranial vasculature. Tilt table test revealed normal 12-lead ECG. Orthostatic hypotension syndrome, associated with symptoms. Patient has been started on Florinef. CTA of neck revealed moderate to severe focal atherosclerotic stenosis at the origin of the brachiocephalic artery. Mild, less than 40% proximal left ICA narrowing, no hemodynamically significant stenosis on the right. A 1.5-1.7 cm long segment of calcified occlusion of the left subclavian artery beginning at its origin. The occluded segment terminates prior to the takeoff of the left vertebral artery. Correlate for any symptoms of subclavian steal syndrome. The vertebral arteries appear patent and opacified. Hemoglobin A1c 5.5. Total cholesterol 138, LDL 69, HDL 51 and triglycerides 90. Continue simvastatin. Patient to follow up with vascular surgery for possible stenting of subclavian artery as outpatient.Suggest increase dose of aspirin to 81 mg twice a day for stroke prevention related to vascular stenosis noted as above. Continue statins. Neurologically clear for discharge. Discussed with Dr. Vargas.
--- NOTE | 2020-04-02 13:05 | P.PN ---
Progress Note - Text Final assessment DC nurse practitioner note Orthostatic hypotension syndrome/dysautonomia, severe No bradycardia arrhythmias Bilateral bruits over the clavicles close to the sternoclavicular joints, with neck radiation Significant calcified occlusion at the origin of the left subclavian Severe focal stenosis of the origin of the brachiocephalic artery Vertebral arteries are patent 40% stenosis carotid artery left ICA Reversal of flow in the left vertebral artery on Doppler It is likely that she may have had vertebrobasilar insufficiency in the setting of clinical dysautonomia with hypotension Suggest Florinef 0.1 mg by mouth daily in the long run. She is being discharged home on 0.2 mg given by the hospitalist but I would like to reduce this back to 0.1 mg after 7-10 days Atorvastatin 80 mg by mouth daily Aspirin 161 mg by mouth daily Follow-up with Dr. Shafer on April 12
--- NOTE | 2020-04-02 14:46 | P.PN ---
Subjective HISTORY OF PRESENTING ILLNESS This is a pleasant 74-year-old female past medical history significant for lung cancer status post right upper lobe resection, COPD, dyslipidemia and former nicotine dependence. She denies prior history of coronary artery disease and does not follow regularly with a event marketing intern for any reason. She is seen and examined sitting up in the chair in no acute distress. She underwent brain MRI/MRA revealing possible occluded left verebral artery and left subclavian artery. No acute intracranial infarct. Significant motion artifact noted. Neck CTA revealed patent vertebral arteries, calcified occlusion of the left subclavian, moderate atherosclerotic stenosis at the origin of the brachiocephalic artery, less than 40% proximal left ICA narrowing. Tilt table test performed yesterday revealed significant dysautonia. Test results discussed in great detail with the patient and her son, Bill. Stovall initiated yesterday but will take PHYSICAL EXAMINATION CONSTITUTIONAL: No apparent distress. HEENT: Head is normocephalic. Pupils are equal, round. Sclerae anicteric. Mucous membranes of the mouth are moist. No JVD. No carotid bruit. Buit noted over the left sternoclavicular joints CHEST EXAMINATION: Lungs are clear to auscultation. No chest wall tenderness is noted on palpation or with deep breathing. HEART EXAMINATION: Regular rate and rhythm. S1, S2 heard. No murmurs, gallops or rub. EXTREMITIES: 2+ peripheral pulses, no lower extremity edema and no calf tenderness. ASSESSMENT Near syncope, no evidence of arrhythmia on telemetry. Dysautonomia Minimal troponin leak likely secondary to demand ischemia from hypotension Dyslipidemia COPD History of lung cancer status post right upper lobe resection Former nicotine dependence PLAN Continue florineff 0.1mg daily. This will take about 5-7 days to achieve peak effect. Advised her to change positions slowly, increase oral intake of salt and wear ARTIE hose. Follow up in the office with Dr. Shafer in 2 weeks. Nurse Practitioner note has been reviewed, I agree with a documented findings and plan of care. Patient was seen and examined. Objective - Vital Signs Vital signs: Vital Signs Temp 97.7 F 04/02/20 08:35 Pulse 78 04/02/20 08:35 Resp 18 04/02/20 08:35 BP 117/72 04/02/20 08:35 Pulse Ox 91 L 04/02/20 08:35 Intake & Output 04/01/20 04/02/20 04/02/20 18:59 06:59 18:59 Intake Total 80 390 Balance 80 390 Intake: Intake, IV Titration 80 60 Amount Sodium Chloride 0.9% 1, 80 60 000 ml @ 20 mls/hr IV . Q24H [facility] Rx#:[id number] Oral 330 Other: Voiding Method Toilet # Voids 1 - Labs CBC & Chem 7: 04/02/20 06:33 04/02/20 06:33 Labs: Abnormal Lab Results - Last 24 Hours (Table) 04/02/20 Range/Units 06:33 Chloride 108 H (98-107) mmol/L Microbiology - Last 24 Hours (Table) 03/31/20 20:48 Blood Culture - Preliminary Blood No Growth after 24 hours
--- NOTE | 2020-04-02 15:58 | P.GSCN ---
History of Present Illness Consult date: 04/02/20 Reason for Consult: Occlusion of left proximal subclavian artery, syncope History of present illness: The patient is a 74-year-old female with a history of lung cancer with upper right lobe removed with treatment of chemo and radiation in 2013, hypertension, CVA/TIA, COPD, GERD, hyperlipidemia, and sleep apnea. 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 The patient states she was sitting in a chair working on a computer with her son when she suddenly felt dizzy, her son stated that her eyes had rolled back in her head and she stiffened up so he had laid her down onto the floor and called EMS. It took about 10 minutes at least for the patient to start waking up. The patient states that she has had 2-3 previous incidences where she has felt dizzy and lightheaded while sitting sometimes with bending stooping or standing. She recently traveled back from [place] approximately a week ago, denies any history of any clotting disorders, D PT or pulmonary emboli sm. The patient denies any chest pain, shortness of breath, difficulty breathing, pain in her upper or lower extremities, or numbness/tingling/weakness in her upper extremities. The patient states they often have a difficult time getting a blood pressure and her left upper extremity, however never has been symptomatic or had any concerns for previous workup. The patient denies any pain or cramping in her lower extremities with walking, only states that walking long distances difficult for her related to her shortness of breath from her COPD. She is currently denying any dizziness or weakness. Carotid duplex performed which shows antegrade flow in the vertebral arteries, with suggestion less than 25% stenosis in both internal carotid arteries. There is retrograde flow in the left vertebral artery that suggests stenosis of the proximal left subclavian artery. MRI/MRA of head and neck show complete occlusion of the left vertebral artery, suspected high-grade stenosis or occlusion of the left proximal subclavian artery, with partially visualized right pleural effusion at the right lung apex, no high-grade stenosis, occlusion or sizable intracranial aneurysm in the major intracranial vasculature. CT angiogram of the neck revealed distortion and consolidation within the posterior right upper lung. Moderate COPD. A 5 mm posterior left upper lobe pulmonary nodule can be follow ed as clinically indicated. moderate to severe focal arthrosclerotic stenosis at the origin of the brachiocephalic artery, mild less than 40% proximal left ICA narrowing. No hemodynamically significant right ICA stenosis, a 1.5-1.7 cm long segment of calcified occlusion of the left subclavian artery beginning at its origin. The occluded segment terminates prior to the takeoff of the left vertebral artery. Correlate for any symptoms of subclavian steal syndrome. The vertebral arteries appear patent and opacified. Cardiology was also consulted on this patient, echocardiogram was performed with an ejection fraction of 55- 60%, the patient had a tilt table test and was found to have orthostatic hypotension. Blood pressures were taken in the right upper extremity resulting in 140/66, in the left upper extremity at 109/79. Review of Systems Review of systems was completed and all pertinent positives and negatives as stated in the HPI. Past Medical History Past Medical History: Asthma, Cancer, COPD, CVA/TIA, GERD/Reflux, Hyperlipidemia, Hypertension, Osteoarthritis (OA), Seizure Disorder, Sleep Apnea/CPAP/BIPAP Additional Past Medical History / Comment(s): hx of lung cancer with upper right lobe removed & received chemo & radiation tx (36 tx - last txs December 2015), barretts esophagus, hiatal hernia, incont of urine wears depends ,emphysema,tia, migraines, no c-pap machine, DDD. , SOB with activity. History of Any Multi-Drug Resistant Organisms: None Reported Past Surgical History: Bladder Surgery, Heart Catheterization, Hysterectomy, Tonsillectomy Additional Past Surgical History / Comment(s): rectocele,cystocele(3 sx total has mesh patch), lasik eye sx, cyst removed lt breast-benign,blephoplasty, sep 05 2015 had upper lobe rt lung removed for stage 3 cancer.had chemo and radiation - 36 tx. EPIDURAL INJ TO back. Past Anesthesia/Blood Transfusion Reactions: No Reported Reaction, Motion Sickness Past Psychological History: Depression Smoking Status: Former smoker - Past Family History Father Family Medical History: Liver Disease Additional Family Medical History / Comment(s): CIRRHOIS OF THE LIVER Mother Family Medical History: Congestive Heart Failure (CHF) Additional Family Medical History / Comment(s): LUNG DISEASE,02 DEPENDANT-SMOKED FROM AGE 13 TILL AGE 85. Medications and Allergies Home Medications Medication Instructions Recorded Confirmed Type Omeprazole [PriLOSEC] 20 mg PO BID 04/23/16 03/31/20 History Simvastatin [Zocor] 40 mg PO HS 04/23/16 03/31/20 History Albuterol Sulfate [Ventolin HFA] 2 puff INHALATION RT-Q6H PRN 03/31/20 03/31/20 History Alendronate Sodium [Fosamax] 70 mg PO TH 03/31/20 03/31/20 History Difluprednate [Durezol] 2 drop RIGHT EYE BID 03/31/20 03/31/20 History Escitalopram [Lexapro] 10 mg PO HS 03/31/20 03/31/20 History Multivitamins, Thera [Multivitamin 1 tab PO DAILY 03/31/20 03/31/20 History (formulary)] Tiotropium Br/Olodaterol HCl 2 spray INHALATION RT-DAILY 03/31/20 03/31/20 History [Stiolto Respimat Inhal [place]] Aspirin 81 mg PO BID chew 04/02/20 Rx Fludrocortisone [Florinef] 0.2 mg PO DAILY #30 tab 04/02/20 Rx Allergies Allergy/AdvReac Type Severity Reaction Status Date / Time adhesive tape Allergy Rash/Hives Verified 03/31/20 21:59 Surgical - Exam Vital Signs Temp Pulse Resp BP Pulse Ox 98.2 F 87 18 114/84 93 L 03/31/20 17:38 03/31/20 17:38 03/31/20 17:38 03/31/20 17:38 03/31/20 17:38 General appearance: The patient is alert, oriented, in no acute distress. HET: Head is normocephalic and atraumatic. Pupils are equal and reactive. Neck: Supple without lymphadenopathy. Trachea midline. Heart: S1 S2. Regular rate and rhythm. Lungs: No crackles or wheezes are heard. Decreased breath sounds on right, normal inspiratory effort and chest wall expansion. Abdomen: Soft, nontender, nondistended with bowel sounds. No peritoneal signs. No palpable organomegaly or masses. Extremities: Normal skin color and turgor. No cyanosis, rash, ulceration, clubbing, or edema. Radial and pedal pulses are 2/4 bilaterally. Patient has full range of motion of bilateral upper extremities, equal grasp bilaterally, no swelling or redness of bilateral upper extremities. Neurological: No focal deficits. Strength and sensation are grossly intact. Results - Labs 04/02/20 06:33 04/02/20 06:33 Abnormal Lab Results - Last 24 Hours (Table) 04/02/20 Range/Units 06:33 Chloride 108 H (98-107) mmol/L Microbiology - Last 24 Hours (Table) 03/31/20 20:48 Blood Culture - Preliminary Blood No Growth after 24 hours Diabetes panel 04/01/20 04/01/20 04/02/20 Range/Units 07:30 07:30 06:33 Sodium 139 (137-145) mmol/L Potassium 4.0 (3.5-5.1) mmol/L Chloride 108 H (98-107) mmol/L Carbon Dioxide 24 (22-30) mmol/L BUN 15 (7-17) mg/dL Creatinine 0.64 (0.52-1.04) mg/dL Glucose 86 (74-99) mg/dL Hemoglobin A1c 5.5 (4.0-6.0) % Calcium 8.9 (8.4-10.2) mg/dL Triglycerides 90 (<150) mg/dL HDL Cholesterol 51 (40-60) mg/dL Calcium panel 04/02/20 Range/Units 06:33 Calcium 8.9 (8.4-10.2) mg/dL Pituitary panel 04/02/20 Range/Units 06:33 Sodium 139 (137-145) mmol/L Potassium 4.0 (3.5-5.1) mmol/L Chloride 108 H (98-107) mmol/L Carbon Dioxide 24 (22-30) mmol/L BUN 15 (7-17) mg/dL Creatinine 0.64 (0.52-1.04) mg/dL Glucose 86 (74-99) mg/dL Calcium 8.9 (8.4-10.2) mg/dL Adrenal panel 04/02/20 Range/Units 06:33 Sodium 139 (137-145) mmol/L Potassium 4.0 (3.5-5.1) mmol/L Chloride 108 H (98-107) mmol/L Carbon Dioxide 24 (22-30) mmol/L BUN 15 (7-17) mg/dL Creatinine 0.64 (0.52-1.04) mg/dL Glucose 86 (74-99) mg/dL Calcium 8.9 (8.4-10.2) mg/dL Assessment and Plan Assessment: 1. Occlusion of Left proximal subclavian artery 2. Syncope and collapse 3. Orthostatic hypotension 4. COPD 5. History of lung cancer with treatment 6. Hypertension 7. Hyperlipidemia Plan: Dr. Cabral had a long discussion with the patient regarding her occlusion of t he left proximal subclavian artery, and antegrade flow in the left vertebral artery. He discussed with her that he believes the syncope is more related to her orthostatic hypotension, as she is not having any pain, numbness or tingling in her left upper extremity. The patient is to be started on Florinef. There is no indication for any vascular surgical intervention at this time, however he did discuss there is a possibility she may need a stent placed in the future . The patient is agreeable to see Dr. Cabral in 2 weeks in the office to further discuss the need for any possible future vascular surgery interventions. She will also follow-up with cardiology in 1-2 weeks. Thank you for this consultation and allowing us to take part plan of care of this patient during her hospital stay. The above dictated assessment and findings were discussed with Dr. Cabral. The impression and plan of care have been directed as dictated.
[2020-04-04] MEDS ORDERED: NON FORMULARY DRUG (Alendronate Sodium [Fosamax] 70 MG) PO SCH (00:26)
== END 2020-04-02 12:40 | disposition home or self-care (01) | DRG 312 ==
LOC: EC 17:30 → 1SOBS 20:42 → OBSVTOIN 04-02 09:21
PROVIDERS: ADMIT Internal Medicine; ATTEND Internal Medicine
PROC: 4A03XB1 Measurement of Arterial Pressure, Peripheral, External Approach (ICD-10-PCS; 2020-04-01)
PROC: 4A02XFZ Measurement of Cardiac Rhythm, External Approach (ICD-10-PCS; principal; 2020-04-01 11:30)
DX: I95.1 Orthostatic hypotension (principal); I82.B12 Acute embolism and thrombosis of left subclavian vein; J90 Pleural effusion, not elsewhere classified; C78.02 Secondary malignant neoplasm of left lung; I67.82 Cerebral ischemia; J98.11 Atelectasis; H33.21 Serous retinal detachment, right eye; Z11.59 Encounter for screening for other viral diseases; G40.909 Epilepsy, unspecified, not intractable, without status epilepticus; I73.9 Peripheral vascular disease, unspecified; G90.1 Familial dysautonomia [Riley-Day]; J43.9 Emphysema, unspecified; M19.90 Unspecified osteoarthritis, unspecified site; K21.9 Gastro-esophageal reflux disease without esophagitis; I10 Essential (primary) hypertension; E78.5 Hyperlipidemia, unspecified; G43.909 Migraine, unspecified, not intractable, without status migrainosus; R32 Unspecified urinary incontinence; K44.9 Diaphragmatic hernia without obstruction or gangrene; K22.70 Barrett's esophagus without dysplasia; F32.9 Major depressive disorder, single episode, unspecified; H91.90 Unspecified hearing loss, unspecified ear; R09.89 Other specified symptoms and signs involving the circulatory and respiratory systems; H81.10 Benign paroxysmal vertigo, unspecified ear; I65.22 Occlusion and stenosis of left carotid artery; R79.89 Other specified abnormal findings of blood chemistry; I65.02 Occlusion and stenosis of left vertebral artery; G47.33 Obstructive sleep apnea (adult) (pediatric); Z85.118 Personal history of other malignant neoplasm of bronchus and lung; Z90.2 Acquired absence of lung [part of]; Z79.82 Long term (current) use of aspirin; Z79.899 Other long term (current) drug therapy; Z91.048 Other nonmedicinal substance allergy status; Z86.73 Personal history of transient ischemic attack (TIA), and cerebral infarction without residual deficits; Z92.3 Personal history of irradiation; Z92.21 Personal history of antineoplastic chemotherapy; Z90.710 Acquired absence of both cervix and uterus; Z98.890 Other specified postprocedural states; Z87.891 Personal history of nicotine dependence; Z83.79 Family history of other diseases of the digestive system; Z82.49 Family history of ischemic heart disease and other diseases of the circulatory system; Z87.09 Personal history of other diseases of the respiratory system; Z79.83 Long term (current) use of bisphosphonates
CPT/HCPCS: 36415; 70450; 70498; 70544; 70549; 70553; 71046; 71275; 80048; 80053; 80061; 81001; 82533; 83036; 84484; 85025; 85027; 85379; 85610; 85730; 87040; 93005; 93306; 93660; 93880; 95819; 96360; 99285

== ENCOUNTER 2020-05-26 13:29 | Observation (INO) | payer MEDICARE ==
[2020-05-26] MEDS ORDERED: SODIUM CHLORIDE 0.9% 500 ML 500 ML IV STA (13:33)
--- NOTE | 2020-05-26 13:38 | ED ---
General Adult HPI - General Stated complaint: unresponsive/fall Time Seen by Provider: 05/26/20 13:32 Source: patient, RN notes reviewed, old records reviewed - History of Present Illness Initial comments: 74 yo female presenting with altered mental status. According to EMS she was at the dinner table, she screamed fell backwards striking her head. She was unconscious at the time of EMS arrival. She is previous history of TIA. Unknown what medications the patient is currently on. She was agitated and minimally responsive during transport. Vital signs were stable. There was report of possible weakness at the onset. Patient is moving all extremities at the time of arrival. She is able to answer questions. She is maintaining her airway. History is limited however she denies pain complaints. Denies headache. Denies nausea vomiting or fever. - Related Data Home Medications Medication Instructions Recorded Confirmed Omeprazole [PriLOSEC] 20 mg PO BID 04/23/16 05/26/20 Albuterol Sulfate [Ventolin HFA] 2 puff INHALATION RT-Q6H PRN 03/31/20 05/26/20 Alendronate Sodium [Fosamax] 70 mg PO WE 03/31/20 05/26/20 Difluprednate [Durezol] 1 drop RIGHT EYE BID 03/31/20 05/26/20 Multivitamins, Thera [Multivitamin 1 tab PO DAILY 03/31/20 05/26/20 (formulary)] Tiotropium Br/Olodaterol HCl 2 puff INHALATION RT-DAILY 03/31/20 05/26/20 [Stiolto Respimat Inhal [place]] Atorvastatin [Lipitor] 80 mg PO HS 05/26/20 05/26/20 Escitalopram [Lexapro] 5 mg PO HS 05/26/20 05/26/20 Fludrocortisone [Florinef] 0.1 mg PO DAILY 05/26/20 05/26/20 Previous Rx's Medication Instructions Recorded Aspirin 81 mg PO BID chew 04/02/20 Allergies Allergy/AdvReac Type Severity Reaction Status Date / Time adhesive tape Allergy Rash/Hives Verified 05/26/20 14:56 Review of Systems ROS Statement: Those systems with pertinent positive or pertinent negative responses have been documented in the HPI. ROS Other: All systems not noted in ROS Statement are negative. Past Medical History Past Medical History: Asthma, Cancer, COPD, CVA/TIA, GERD/Reflux, Hyperlipidemia, Hypertension, Osteoarthritis (OA), Seizure Disorder, Sleep Apnea/CPAP/BIPAP Additional Past Medical History / Comment(s): hx of lung cancer with upper right lobe removed & received chemo & radiation tx (36 tx - last txs December 2015), barretts esophagus, hiatal hernia, incont of urine wears depends ,emphysema,tia, migraines, no c-pap machine, DDD. , SOB with activity. History of Any Multi-Drug Resistant Organisms: None Reported Past Surgical History: Bladder Surgery, Heart Catheterization, Hysterectomy, Tonsillectomy Additional Past Surgical History / Comment(s): rectocele,cystocele(3 sx total has mesh patch), lasik eye sx, cyst removed lt breast-benign,blephoplasty, sep 05 2015 had upper lobe rt lung removed for stage 3 cancer.had chemo and radiation - 36 tx. EPIDURAL INJ TO back. Past Anesthesia/Blood Transfusion Reactions: No Reported Reaction, Motion Sickness Past Psychological History: Depression - Past Family History Father Family Medical History: Liver Disease Additional Family Medical History / Comment(s): CIRRHOIS OF THE LIVER Mother Family Medical History: Congestive Heart Failure (CHF) Additional Family Medical History / Comment(s): LUNG DISEASE,02 DEPENDANT-SMOKED FROM AGE 13 TILL AGE 85. General Exam General appearance: alert, in no apparent distress Head exam: Present: other (Occipital hematoma) Eye exam: Present: other (Right pupil appears postsurgical, irregular nonreactive, left pupil is 5 mm and reactive.) Neck exam: Present: normal inspection, other (C-collar placed by EMS) Respiratory exam: Present: normal lung sounds bilaterally. Absent: respiratory distress, wheezes Cardiovascular Exam: Present: regular rate, normal rhythm GI/Abdominal exam: Present: soft. Absent: distended, tenderness, guarding, rebound Extremities exam: Present: normal inspection, normal capillary refill Neurological exam: Present: alert, CN II-XII intact. Absent: oriented X3 (2), motor sensory deficit (Patient moving all extremities) Skin exam: Present: warm, dry Course Vital Signs 05/26/20 05/26/20 05/26/20 13:32 13:37 14:00 Temperature 97.7 F Pulse Rate 83 80 80 Respiratory 18 20 18 Rate Blood Pressure 180/88 174/90 157/79 O2 Sat by Pulse 90 L 94 L 96 Oximetry 05/26/20 05/26/20 14:39 14:45 Temperature Pulse Rate 73 80 Respiratory 18 18 Rate Blood Pressure 164/94 162/86 O2 Sat by Pulse 96 100 Oximetry EKG Findings - EKG Comments: EKG Findings:: EKG: Normal sinus rhythm, rate of 76, ND interval 140, QRS duration 86, QTC 459, no ST segment elevation. Medical Decision Making - Medical Decision Making 74-year-old with syncope, fall, minor head trauma. Patient is in sinus rhythm upon arrival. She did have head trauma, head CT is performed this is negative for intracranial hemorrhage. Chest x-ray shows previous known right lung mass and volume loss in the right chest. She has normal labs including CBC, CMP, troponin. She remains in sinus rhythm was stable vitals were all the emergency department. I did reevaluate this patient several occasions, resting comfortably with no complaints. She has a nonfocal neurologic exam. I suspect this was a syncopal episode with head trauma uncertain etiology. She will be placed in observation on telemetry with cardiology on consult. Case is discussed with Dr. Gonzalez who will admit. - Lab Data Result diagrams: 05/26/20 13:43 05/26/20 13:43 Lab Results 05/26/20 05/26/20 05/26/20 Range/Units 13:39 13:43 13:43 WBC 7.4 (3.8-10.6) k/uL RBC 4.88 (3.80-5.40) m/uL Hgb 13.6 (11.4-16.0) gm/dL Hct 42.1 (34.0-46.0) % MCV 86.3 (80.0-100.0) fL MCH 27.9 (25.0-35.0) pg MCHC 32.3 (31.0-37.0) g/dL RDW 14.7 (11.5-15.5) % Plt Count 233 (150-450) k/uL Neutrophils % 58 % Lymphocytes % 27 % Monocytes % 4 % Eosinophils % 8 % Basophils % 1 % Neutrophils # 4.3 (1.3-7.7) k/uL Lymphocytes # 2.0 (1.0-4.8) k/uL Monocytes # 0.3 (0-1.0) k/uL Eosinophils # 0.6 (0-0.7) k/uL Basophils # 0.1 (0-0.2) k/uL PT 9.8 (9.0-12.0) sec INR 0.9 (<1.2) APTT 22.4 (22.0-30.0) sec Sodium (137-145) mmol/L Potassium (3.5-5.1) mmol/L Chloride (98-107) mmol/L Carbon Dioxide (22-30) mmol/L Anion Gap mmol/L BUN (7-17) mg/dL Creatinine (0.52-1.04) mg/dL Est GFR (CKD-EPI)AfAm (>60 ml/min/1.73 sqM) Est GFR (CKD-EPI)NonAf (>60 ml/min/1.73 sqM) Glucose (74-99) mg/dL POC Glucose (mg/dL) 93 (75-99) mg/dL POC Glu Handhole Machine Operator ID Whitten, Isiah Calcium (8.4-10.2) mg/dL Magnesium (1.6-2.3) mg/dL Total Bilirubin (0.2-1.3) mg/dL AST (14-36) U/L ALT (4-34) U/L Alkaline Phosphatase (38-126) U/L Troponin I (0.000-0.034) ng/mL Total Protein (6.3-8.2) g/dL Albumin (3.5-5.0) g/dL Urine Color Urine Appearance (Clear) Urine pH (5.0-8.0) Ur Specific [place] (1.001-1.035) Urine Protein (Negative) Urine Glucose (UA) (Negative) Urine Ketones (Negative) Urine Blood (Negative) Urine Nitrite (Negative) Urine Bilirubin (Negative) Urine Urobilinogen (<2.0) mg/dL Ur Leukocyte Esterase (Negative) 05/26/20 05/26/20 05/26/20 Range/Units 13:43 13:43 14:38 WBC (3.8-10.6) k/uL RBC (3.80-5.40) m/uL Hgb (11.4-16.0) gm/dL Hct (34.0-46.0) % MCV (80.0-100.0) fL MCH (25.0-35.0) pg MCHC (31.0-37.0) g/dL RDW (11.5-15.5) % Plt Count (150-450) k/uL Neutrophils % % Lymphocytes % % Monocytes % % Eosinophils % % Basophils % % Neutrophils # (1.3-7.7) k/uL Lymphocytes # (1.0-4.8) k/uL Monocytes # (0-1.0) k/uL Eosinophils # (0-0.7) k/uL Basophils # (0-0.2) k/uL PT (9.0-12.0) sec INR (<1.2) APTT (22.0-30.0) sec Sodium 139 (137-145) mmol/L Potassium 4.1 (3.5-5.1) mmol/L Chloride 107 (98-107) mmol/L Carbon Dioxide 25 (22-30) mmol/L Anion Gap 7 mmol/L BUN 15 (7-17) mg/dL Creatinine 0.66 (0.52-1.04) mg/dL Est GFR (CKD-EPI)AfAm >90 (>60 ml/min/1.73 sqM) Est GFR (CKD-EPI)NonAf 87 (>60 ml/min/1.73 sqM) Glucose 96 (74-99) mg/dL POC Glucose (mg/dL) (75-99) mg/dL POC Glu Handhole Machine Operator ID Calcium 8.6 (8.4-10.2) mg/dL Magnesium 1.8 (1.6-2.3) mg/dL Total Bilirubin 0.5 (0.2-1.3) mg/dL AST 31 (14-36) U/L ALT 26 (4-34) U/L Alkaline Phosphatase 67 (38-126) U/L Troponin I <0.012 (0.000-0.034) ng/mL Total Protein 6.6 (6.3-8.2) g/dL Albumin 3.7 (3.5-5.0) g/dL Urine Color Yellow Urine Appearance Clear (Clear) Urine pH 7.0 (5.0-8.0) Ur Specific [place] 1.010 (1.001-1.035) Urine Protein Negative (Negative) Urine Glucose (UA) Negative (Negative) Urine Ketones Negative (Negative) Urine Blood Negative (Negative) Urine Nitrite Negative (Negative) Urine Bilirubin Negative (Negative) Urine Urobilinogen <2.0 (<2.0) mg/dL Ur Leukocyte Esterase Negative (Negative) Disposition Clinical Impression: Syncope and collapse Disposition: ADMITTED IP TO THIS HOSP Condition: Stable Is patient prescribed a controlled substance at d/c from ED?: No Referrals: Christina Lan NPC [REFERRING] - 1-2 days Decision to Admit Reason: Admit from EC Decision Date: 05/26/20 Decision Time: 15:45
[2020-05-26 13:49] LABS: Glucose,Whole Blood 93 mg/dL (75-99)
[2020-05-26 13:58] LABS: Basophils # (A) 0.1 k/uL (0-0.2); Basophils % (A) 1 %; Eosinophils # (A) 0.6 k/uL (0-0.7); Eosinophils % (A) 8 %; HCT 42.1 % (34.0-46.0); HGB 13.6 gm/dL (11.4-16.0); Lymphocytes % (A) 27 %; MCH 27.9 pg (25.0-35.0); MCHC 32.3 g/dL (31.0-37.0); MCV 86.3 fL (80.0-100.0); Mean Platelet Volume 7.5; Monocytes # (A) 0.3 k/uL (0-1.0); Monocytes % (A) 4 %; Neutrophils # (A) 4.3 k/uL (1.3-7.7); Neutrophils % (A) 58 %; Platelet Count 233 k/uL (150-450); RBC 4.88 m/uL (3.80-5.40); RDW 14.7 % (11.5-15.5); WBC 7.4 k/uL (3.8-10.6)
[2020-05-26 14:07] LABS: ALT 26 U/L (4-34); AST 31 U/L (14-36); African American GFR (CKD) >90 (>60 ml/min/1.73 sqM); Albumin 3.7 g/dL (3.5-5.0); Alkaline Phosphatase 67 U/L (38-126); Anion Gap 7 mmol/L; Blood Urea Nitrogen 15 mg/dL (7-17); Calcium 8.6 mg/dL (8.4-10.2); Carbon Dioxide 25 mmol/L (22-30); Chloride 107 mmol/L (98-107); Glucose 96 mg/dL (74-99); Magnesium 1.8 mg/dL (1.6-2.3); Non-African American GFR(CKD) 87 (>60 ml/min/1.73 sqM); Potassium 4.1 mmol/L (3.5-5.1); Sodium 139 mmol/L (137-145); Total Bilirubin 0.5 mg/dL (0.2-1.3); Total Protein 6.6 g/dL (6.3-8.2)
[2020-05-26 14:12] LABS: INR 0.9 (<1.2); Prothrombin Time 9.8 sec (9.0-12.0)
[2020-05-26 14:13] LABS: Partial Thromboplastin Time 22.4 sec (22.0-30.0)
--- NOTE | 2020-05-26 14:43 | CT ---
EXAMINATION TYPE: CT brain cspine wo con DATE OF EXAM: 05/26/2020 COMPARISON: 04/01/2020 and 03/31/2020 HISTORY: Fall, AMS CT DLP: 1192.5 mGycm Automated exposure control for dose reduction was used. Ventricles have normal size. There is no mass effect nor midline shift. There is no sign of intracran ial hemorrhage. There are small areas of hypodensity in the periventricular white matter. The calvari um is intact. There is some elongation of the left lobe. The right globe is a prosthesis. Cervical vertebra have normal alignment. Disc spaces are fairly normal. Posterior elements are intact . There is mild cervical facet arthropathy. The skull base is intact. There is normal aeration of the temporal bones. There is no evidence of cervical spine fracture. IMPRESSION: Mild white matter changes consistent with chronic small vessel ischemia or demyelinating disease. No significant atrophy. No acute intracranial abnormality. No change compared to old exam. Negative CT scan cervical spine. No fracture. No change compared to old exams.
--- NOTE | 2020-05-26 14:47 | XR ---
EXAMINATION TYPE: XR chest 1V portable DATE OF EXAM: 05/26/2020 COMPARISON: 03/31/2020 HISTORY: Syncope TECHNIQUE: 2 views FINDINGS: Heart and mediastinum are shifted to the right side. There is pleural thickening and infilt rate at the right lung apex. There is apparent large hiatal hernia. Left lung is clear. There are cli ps at the right pulmonary hilum. IMPRESSION: Postsurgical changes with significant volume loss on the right side. Increased density at the superior right pulmonary hilum consistent with scarring unchanged compared to old exam. Stable p leural thickening right lung apex. Large hiatal hernia increased compared to old exam.
[2020-05-26 15:01] LABS: Appearance,Urine Clear (Clear); Bilirubin,Urine Negative (Negative); Blood,Urine Negative (Negative); Color,Urine Yellow; Glucose,Urine (UA) Negative (Negative); Ketones,Urine Negative (Negative); Leukocyte Esterase,Urine Negative (Negative); Nitrite,Urine Negative (Negative); Protein,Urine Negative (Negative); Urobilinogen,Urine <2.0 mg/dL (<2.0)
[2020-05-26] MEDS ORDERED: ACETAMINOPHEN TAB 325 MG TAB PO PRN (15:42)
[2020-05-26] MEDS ORDERED: NALOXONE 0.4 MG/ML 1 ML VIAL IV PRN (15:42)
[2020-05-26] MEDS: SODIUM CHLORIDE 0.9% 1,000 ML IV SCH ×2 (16:34→21:54)
[2020-05-26] MEDS ORDERED: ALBUTEROL NEBULIZED 2.5 MG/3 ML INHALATION PRN (16:56)
[2020-05-26] MEDS: ATORVASTATIN 80 MG TAB PO SCH (21:14)
[2020-05-26] MEDS: ASPIRIN 81 MG PO SCH (21:14)
[2020-05-26] MEDS: ESCITALOPRAM 5 MG TAB PO SCH (21:54)
[2020-05-26] MEDS: HEPARIN SODIUM,PORCINE 5,000 UNIT/ML 1 ML VIAL SQ SCH (23:08)
[2020-05-27] MEDS: IPRATROPIUM 0.5 MG/2.5 ML NEBU INHALATION SCH ×5 (01:08→19:36)
[2020-05-27] MEDS: SODIUM CHLORIDE 0.9% 1,000 ML IV SCH ×3 (04:20→22:20)
[2020-05-27] MEDS: FORMOTEROL FUMARATE 20 MCG/2 ML NEBU INHALATION SCH ×2 (07:15→19:35)
[2020-05-27] MEDS: ASPIRIN 81 MG PO SCH ×2 (09:24→22:20)
[2020-05-27] MEDS: MULTIVITAMINS, THERA 1 EACH TAB PO SCH (09:24)
[2020-05-27] MEDS: FLUDROCORTISONE 0.1 MG TAB PO SCH (09:25)
[2020-05-27] MEDS: PANTOPRAZOLE 40 MG TABLET PO SCH (09:25)
[2020-05-27] MEDS: HEPARIN SODIUM,PORCINE 5,000 UNIT/ML 1 ML VIAL SQ SCH ×2 (09:26→19:09)
--- NOTE | 2020-05-27 10:13 | P.HPIM ---
History of Present Illness H&P Date: 05/26/20 Chief Complaint: syncope Patient is a 74-year-old female with a known history of COPD/asthma, history of CVA/TIA, GERD, hypertension, hyperlipidemia, osteoarthritis, history of lung cancer with right upper lobe resection and chemoradiation, recent work-up with possible cleared rapidly occlusions was brought to the hospital due to altered mental status and fall. Evidently patient was at the breakfast table and suddenly fell back and hit her head. Patient was able to regain consciousness immediately. Denied any weakness or seizures or postictal state. Patient did have one episode of vomiting while in route to ER. Otherwise patient denied any dizziness or lightheadedness. No chest pain or shortness of breath. No headache. No recent illnesses. No fever no chills. No cough or sputum production. Patient has an appointment to follow with vascular surgery for possible stenting of subclavian artery as an outpatient. Recent admission patient had work-up including EEG, MRI of the brain with and without contrast, MRA of the head and neck, tilt table test and CTA neck were done and was discharged from hospital on 04/02/2020. Patient had CT head and CT cervical spine was done in the ER showed mild white matter changes consistent with chronic small vessel ischemia demyelinating disease. No significant atrophy. No acute intracranial abnormality. No change compared to old exam. Negative CT cervical spine No fractures. No change compared to old exam. EKG showed normal sinus rhythm Chest x-ray showed postsurgical changes with significant volume loss on the right side. Increased density at the superior right pulmonary hilus consistent with scarring unchanged compared to old exam. Stable pleural thickening right lung apex. Large hiatal hernia increased compared to old exam. Review of Systems Constitutional: Patient denies any fever or chills . No generalized weakness or weight loss. Abdomen: Patient denied nausea vomiting and diarrhea and abdominal pain. Cardiovascular: Patient denies any chest pain or short of breath no palpitations. Respiratory: patient denied any cough is from production. No shortness of breath Neurologic: Patient denied any numbness or tingling headache. Musculoskeletal: Patient denies any complaints of joint swelling or deformity. Skin: Negative Psychiatric: Negative Endocrine: No heat or cold intolerance. No recent weight gain. Genitourinary: No dysuria or hematuria. All other 14 point ROS negative except the above Past Medical History Past Medical History: Asthma, Cancer, COPD, CVA/TIA, GERD/Reflux, Hyperlipidemia, Hypertension, Osteoarthritis (OA), Seizure Disorder, Sleep Apnea/CPAP/BIPAP Additional Past Medical History / Comment(s): hx of lung cancer with upper right lobe removed & received chemo & radiation tx (36 tx - last txs December 2015), barretts esophagus, hiatal hernia, incont of urine wears depends ,emphysema,tia, migraines, no c-pap machine, DDD. , SOB with activity. History of Any Multi-Drug Resistant Organisms: None Reported Past Surgical History: Bladder Surgery, Heart Catheterization, Hysterectomy, Tonsillectomy Additional Past Surgical History / Comment(s): rectocele,cystocele(3 sx total has mesh patch), lasik eye sx, cyst removed lt breast-benign,blephoplasty, sep 05 2015 had upper lobe rt lung removed for stage 3 cancer.had chemo and radiation - 36 tx. EPIDURAL INJ TO back. Past Anesthesia/Blood Transfusion Reactions: No Reported Reaction, Motion Sickness Past Psychological History: Depression - Past Family History Father Family Medical History: Liver Disease Additional Family Medical History / Comment(s): CIRRHOIS OF THE LIVER Mother Family Medical History: Congestive Heart Failure (CHF) Additional Family Medical History / Comment(s): LUNG DISEASE,02 DEPENDANT-SMOKED FROM AGE 13 TILL AGE 85. Medications and Allergies Home Medications Medication Instructions Recorded Confirmed Type Omeprazole [PriLOSEC] 20 mg PO BID 04/23/16 05/26/20 History Albuterol Sulfate [Ventolin HFA] 2 puff INHALATION RT-Q6H PRN 03/31/20 05/26/20 History Alendronate Sodium [Fosamax] 70 mg PO WE 03/31/20 05/26/20 History Difluprednate [Durezol] 1 drop RIGHT EYE BID 03/31/20 05/26/20 History Multivitamins, Thera [Multivitamin 1 tab PO DAILY 03/31/20 05/26/20 History (formulary)] Tiotropium Br/Olodaterol HCl 2 puff INHALATION RT-DAILY 03/31/20 05/26/20 History [Stiolto Respimat Inhal [place]] Aspirin 81 mg PO BID chew 04/02/20 05/26/20 Rx Atorvastatin [Lipitor] 80 mg PO HS 05/26/20 05/26/20 History Escitalopram [Lexapro] 5 mg PO HS 05/26/20 05/26/20 History Fludrocortisone [Florinef] 0.1 mg PO DAILY 05/26/20 05/26/20 History Allergies Allergy/AdvReac Type Severity Reaction Status Date / Time adhesive tape Allergy Rash/Hives Verified 05/26/20 14:56 Physical Exam Vitals: Vital Signs Temp Pulse Resp BP Pulse Ox 05/26/20 16:00 72 18 151/76 97 05/26/20 15:50 73 16 146/76 97 05/26/20 15:40 77 35 H 144/72 97 05/26/20 15:30 73 18 147/84 97 05/26/20 15:20 73 17 161/84 99 05/26/20 15:10 76 17 159/80 98 05/26/20 14:50 82 18 162/86 99 05/26/20 14:45 80 18 162/86 100 05/26/20 14:39 73 18 164/94 96 05/26/20 14:00 80 18 157/79 96 05/26/20 13:37 80 20 174/90 94 L 05/26/20 13:32 97.7 F 83 18 180/88 90 L Intake and Output 05/26/20 05/26/20 05/26/20 06:59 14:59 22:59 Other: Weight 71.486 kg PHYSICAL EXAMINATION: Patient is lying in the bed comfortably, no acute distress, awake alert and oriented.. HEENT: Normocephalic. Neck is supple. Pupils reactive. Nostrils clear. Oral cavity is moist. Ears reveal no drainage. Neck reveals no JVD, carotid bruits, or thyromegaly. CHEST EXAMINATION: Trachea is central. Symmetrical expansion. Lung freeman clear to auscultation and percussion. CARDIAC: Normal S1, S2 with no gallops. No murmurs ABDOMEN: Soft. Bowel sounds normal. No organomegaly. No abdominal bruits. Extremities: reveal no edema. No clubbing or cyanosis Neurologically awake, alert, oriented x3 with well-coordinated movements. No focal deficits noted Skin: No rash or skin lesions. Psychiatric: Coperative. Nonsuicidal Musculoskeletal: No joint swelling or deformity. Normal range of motion. Results CBC & Chem 7: 05/26/20 13:43 05/26/20 13:43 Thrombosis Risk Factor Assmnt - DVT/VTE Prophylaxis DVT/VTE Prophylaxis: Pharmacologic Prophylaxis ordered Assessment and Plan Assessment: acute syncopal episode likely due to severe dysautonomia Orthostatic hypotension patient is on Florinef. 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 Left ICA 40% stenosis History of COPD/asthma stable History of Tierney's esophagus History of lung cancer status post right upper lobe resection and chemoradiation Hypertension Hyperlipidemia History of seizure disorder Obstructive sleep apnea not on CPAP Depression DVT prophylaxis with heparin subcu Plan: Patient will be continued on telemetry monitoring. Continue with aspirin statins and Florinef 0.1 mg daily. Continue with breathing treatments and gentle hydration. Cardiology was consulted for evaluation. Prognosis guarded. Time with Patient: Greater than 30
--- NOTE | 2020-05-27 10:59 | P.CRDCN ---
History of Present Illness History of present illness: HISTORY OF PRESENTING ILLNESS This is a pleasant 74-year-old female past medical history significant for with static hypotension, COPD, TIA, hypertension, lung cancer status post p artial lobectomy and dyslipidemia. She follows in the office with Dr. Shafer. We have been asked to see in consultation for syncope. She states yesterday morning she woke up in her usual state of health. She sat down and ate breakfast. She then moved her plate away and started reading the newspaper. Patient was home with her son at the time. According to the patient she then screamed out for help and passed out. She does not recall feeling dizzy, nauseated, chest pain, short of breath or having palpitations prior to passing out. There was no loss of bowel or bladder control. DIAGNOSTICS EKG reveals sinus mechanism with no acute ST or T wave abnormalities noted. Telemetry tracings have been unremarkable for an acute arrhythmia. Chest xray post surgical changes with significant volume loss on the right side, increased density at the superior right pulmonary hilum consistent with scarring unchanged from previous. CT of the brain is unremarkable. Laboratory reviewed, CBC unremarkable, sodium 139, potassium 4.1, creatinine 0.66, cardiac enzymes negative 1, magnesium 1.8.. Current cardiac medications include Florinef 0.1 mg daily, atorvastatin 80 mg daily and aspirin 81 mg twice a day. REVIEW OF SYSTEMS At the time of my exam: CONSTITUTIONAL: Denies fever or chills. CARDIOVASCULAR: Denies chest pain, shortness of breath, orthopnea, PND or palpitations. RESPIRATORY: Denies cough. GASTROINTESTINAL: Denies abdominal pain, diarrhea, constipation, nausea or vomiting. MUSCULOSKELETAL: Denies myalgias. NEUROLOGIC: Denies numbness, tingling or weakness. ENDOCRINE: Denies fatigue, weight change, polydipsia or polyurina. GENITOURINARY: Denies burning, hematuria or urgency with micturation. HEMATOLOGIC: Denies history of anemia or bleeding. PHYSICAL EXAMINATION Blood pressure 108/71 heart rate 60 afebrile and maintaining oxygen saturation on nasal cannula. CONSTITUTIONAL: No apparent distress. HEENT: Head is normocephalic. Pupils are equal, round. Sclerae anicteric. Mucous membranes of the mouth are moist. No JVD. No carotid bruit. CHEST EXAMINATION: Lungs are clear to auscultation. No chest wall tenderness is noted on palpation or with deep breathing. HEART EXAMINATION: Regular rate and rhythm. S1, S2 heard. No murmurs, gallops or rub. ABDOMEN: Soft, nontender. Positive bowel sounds. EXTREMITIES: 2+ peripheral pulses, no lower extremity edema and no calf tenderness. NEUROLOGIC EXAMINATION: Patient is awake, alert and oriented x3. ASSESSMENT Syncope History of orthostatic hypotension syndrome Dyslipidemia History of lung cancer s/p lobectomy Former nicotine dependence PLAN Check d-dimer and CTA if abnormal. Recommend implantation of loop recorder to assess for acute arrhythmia. Check for orthostatic changes. Thank you kindly for this consultation. Nurse Practitioner note has been reviewed, I agree with a documented findings and plan of care. Patient was seen and examined. Past Medical History Past Medical History: Asthma, Cancer, COPD, CVA/TIA, GERD/Reflux, Hyperlipidemia, Hypertension, Osteoarthritis (OA), Seizure Disorder, Sleep Apnea/CPAP/BIPAP Additional Past Medical History / Comment(s): hx of lung cancer with upper right lobe removed & received chemo & radiation tx (36 tx - last txs December 2015), barretts esophagus, hiatal hernia, incont of urine wears depends ,emphysema,tia, migraines, no c-pap machine, DDD. , SOB with activity. History of Any Multi-Drug Resistant Organisms: None Reported Past Surgical History: Bladder Surgery, Heart Catheterization, Hysterectomy, Tonsillectomy Additional Past Surgical History / Comment(s): rectocele,cystocele(3 sx total has mesh patch), lasik eye sx, cyst removed lt breast-benign,blephoplasty, sep 05 2015 had upper lobe rt lung removed for stage 3 cancer.had chemo and radiation - 36 tx. EPIDURAL INJ TO back. Past Anesthesia/Blood Transfusion Reactions: No Reported Reaction, Motion Sickness Past Psychological History: Depression - Past Family History Father Family Medical History: Liver Disease Additional Family Medical History / Comment(s): CIRRHOIS OF THE LIVER Mother Family Medical History: Congestive Heart Failure (CHF) Additional Family Medical History / Comment(s): LUNG DISEASE,02 DEPENDANT-SMOKED FROM AGE 13 TILL AGE 85. Medications and Allergies Home Medications Medication Instructions Recorded Confirmed Type Omeprazole [PriLOSEC] 20 mg PO BID 04/23/16 05/26/20 History Albuterol Sulfate [Ventolin HFA] 2 puff INHALATION RT-Q6H PRN 03/31/20 05/26/20 History Alendronate Sodium [Fosamax] 70 mg PO WE 03/31/20 05/26/20 History Difluprednate [Durezol] 1 drop RIGHT EYE BID 03/31/20 05/26/20 History Multivitamins, Thera [Multivitamin 1 tab PO DAILY 03/31/20 05/26/20 History (formulary)] Tiotropium Br/Olodaterol HCl 2 puff INHALATION RT-DAILY 03/31/20 05/26/20 H istory [Stiolto Respimat Inhal [place]] Aspirin 81 mg PO BID chew 04/02/20 05/26/20 Rx Atorvastatin [Lipitor] 80 mg PO HS 05/26/20 05/26/20 History Escitalopram [Lexapro] 5 mg PO HS 05/26/20 05/26/20 History Fludrocortisone [Florinef] 0.1 mg PO DAILY 05/26/20 05/26/20 History Allergies Allergy/AdvReac Type Severity Reaction Status Date / Time adhesive tape Allergy Rash/Hives Verified 05/26/20 14:56 Physical Exam Vitals: Vital Signs Temp Pulse Pulse Resp BP BP Pulse Ox 05/27/20 07:35 60 05/27/20 07:24 60 05/27/20 07:23 60 05/27/20 07:15 60 05/27/20 07:00 97.5 F L 60 16 108/71 98 05/27/20 01:30 97.6 F 74 16 112/73 98 05/26/20 20:00 78 16 05/26/20 19:20 97.6 F 78 16 122/76 97 05/26/20 17:30 75 17 123/83 96 05/26/20 17:00 73 17 137/88 96 05/26/20 16:30 78 16 153/86 96 05/26/20 16:04 97.9 F 92 16 129/84 96 05/26/20 16:00 72 18 151/76 97 05/26/20 15:50 73 16 146/76 97 05/26/20 15:40 77 18 144/72 97 05/26/20 15:30 73 18 147/84 97 05/26/20 15:20 73 17 161/84 99 05/26/20 15:10 76 17 159/80 98 05/26/20 14:50 82 18 162/86 99 05/26/20 14:45 80 18 162/86 100 05/26/20 14:39 73 18 164/94 96 05/26/20 14:00 80 18 157/79 96 05/26/20 13:37 80 20 174/90 94 L 05/26/20 13:32 97.7 F 83 18 180/88 90 L Intake and Output 05/26/20 05/27/20 05/27/20 22:59 06:59 14:59 Other: Voiding Method Toilet # Voids 1 2 # Bowel Movements 1 Weight 71.486 kg Results 05/26/20 13:43 05/26/20 13:43 Cardiac Enzymes 05/26/20 05/26/20 Range/Units 13:43 13:43 AST 31 (14-36) U/L Troponin I <0.012 (0.000-0.034) ng/mL Coagulation 05/26/20 Range/Units 13:43 PT 9.8 (9.0-12.0) sec APTT 22.4 (22.0-30.0) sec CBC 05/26/20 Range/Units 13:43 WBC 7.4 (3.8-10.6) k/uL RBC 4.88 (3.80-5.40) m/uL Hgb 13.6 (11.4-16.0) gm/dL Hct 42.1 (34.0-46.0) % Plt Count 233 (150-450) k/uL Comprehensive Metabolic Panel 05/26/20 Range/Units 13:43 Sodium 139 (137-145) mmol/L Potassium 4.1 (3.5-5.1) mmol/L Chloride 107 (98-107) mmol/L Carbon Dioxide 25 (22-30) mmol/L BUN 15 (7-17) mg/dL Creatinine 0.66 (0.52-1.04) mg/dL Glucose 96 (74-99) mg/dL Calcium 8.6 (8.4-10.2) mg/dL AST 31 (14-36) U/L ALT 26 (4-34) U/L Alkaline Phosphatase 67 (38-126) U/L Total Protein 6.6 (6.3-8.2) g/dL Albumin 3.7 (3.5-5.0) g/dL Current Medications Generic Name Dose Route Start Last Admin Trade Name Freq PRN Reason Stop Dose Admin Acetaminophen 650 mg 05/26/20 15:42 Tylenol Tab PO Q6HR PRN Mild Pain or Fever > 100.5 Albuterol Sulfate 2.5 mg 05/26/20 16:56 Ventolin Nebulized INHALATION RT-Q6H PRN Shortness Of Breath Aspirin 81 mg 05/26/20 21:00 05/27/20 09:24 Aspirin PO 81 mg BID JAMIE Administration Atorvastatin Calcium 80 mg 05/26/20 21:00 05/26/20 21:14 Lipitor PO 80 mg HS JAMEI Administration Escitalopram Oxalate 5 mg 05/26/20 21:00 05/26/20 21:54 Lexapro PO 5 mg HS JAMIE Administration Fludrocortisone Acetate 0.1 mg 05/27/20 09:00 05/27/20 09:25 Florinef PO 0.1 mg DAILY JAMIE Administration Formoterol Fumarate 20 mcg 05/27/20 08:00 05/27/20 07:15 Perforomist INHALATION 20 mcg RT-BID JAMIE Administration Heparin Sodium (Porcine) 5,000 unit 05/27/20 00:00 05/27/20 09:26 Heparin SQ 5,000 unit Q8HR JAMIE Administration Sodium Chloride 1,000 mls @ 75 mls/hr 05/26/20 15:45 05/27/20 04:20 Saline 0.9% IV Not Given .[id number] JAMIE Ipratropium [place] 0.5 mg 05/26/20 20:00 05/27/20 07:15 Atrovent Nebulized INHALATION 0.5 mg RT-QID JAMIE Administration Multivitamins 1 each 05/27/20 09:00 05/27/20 09:24 Theragran PO 1 each DAILY JAMIE Administration Naloxone HCl 0.2 mg 05/26/20 15:42 Narcan IV Q2M PRN Opioid Reversal Difluprednate [ 1 drop 05/26/20 21:00 05/27/20 09:30 Durezol] RIGHT EYE Not Given BID JAMIE Pantoprazole Sodium 40 mg 05/27/20 07:30 05/27/20 09:25 Protonix PO 40 mg [id number] JAMIE Administration Intake and Output 05/26/20 05/27/2020 22:59 06:59 14:59 Other: Voiding Method Toilet # Voids 1 2 # Bowel Movements 1 Weight 71.486 kg 05/26/20 13:43 05/26/20 13:43
[2020-05-27] MEDS ORDERED: LIDOCAINE 1% INJ 10MG/ML (20 ML MDV) ONE (20:58)
[2020-05-27] MEDS ORDERED: IV FLUID CONTINUATION 400 ML IV ONE (21:14)
[2020-05-27] MEDS ORDERED: MIDAZOLAM 2 MG/2 ML VIAL IV ONE (21:16)
[2020-05-27] MEDS ORDERED: LIDOCAINE 1% INJ 10MG/ML (20 ML MDV) SQ ONE (21:17)
--- NOTE | 2020-05-27 21:27 | P.PCN ---
Preoperative Diagnosis: Loop monitor implant Primary physicians: Dr. Christina Cabrera Sole Seamer: Dr. Shafer Indication: Recurrent syncope, syncope while sitting on 2 occasions Patient was brought to the EP lab in a fasting state. Written informed consent was obtained prior to the procedure. The left pectoral area was prepped and draped per protocol. Intravenous antibiotic was administered preoperatively. A subcutaneous Loop monitor was implanted successfully and the wound was closed per protocol. The device was programmed to detect significant biju- arrhythmic and tachy-arrhythmic events, per protocol. Device and programming details: Syncope protocol Patient underwent EP procedure under conscious sedation/moderate sedation, monitoring of the level of consciousness and physiologic parameters including but not limited to vital signs and oxygenation. Patient tolerated the procedure well without any acute complications. Start time: 2115 Stop time: 2122
--- NOTE | 2020-05-27 21:29 | P.PRLE ---
RE: Racquel Gill Dear Dr. Darron Gill was admitted to the hospital with yet another episode of loss of consciousness while sitting on the dining table. So far on telemetry V have not documented any bradycardia arrhythmias. She underwent implantation of a loop monitor for recurrent syncopal spells while sitting Hopefully this will shed some light on her syncopal spells Thank you for entrusting me with the care of the patient Warm regards Sincerely Rayo Shafer
[2020-05-27 22:05] VITALS: RESP 18
[2020-05-27] MEDS: ATORVASTATIN 80 MG TAB PO SCH (22:20)
--- NOTE | 2020-05-27 22:38 | P.PN ---
Subjective Progress Note Date: 05/27/20 Principal diagnosis: Syncope/. Patient is a 74-year-old female with a known history of COPD/asthma, history of CVA/TIA, GERD, hypertension, hyperlipidemia, osteoarthritis, history of lung cancer with right upper lobe resection and chemoradiation, recent work-up with p ossible cleared rapidly occlusions was brought to the hospital due to altered mental status and fall. Evidently patient was at the breakfast table and suddenly fell back and hit her head. Patient was able to regain consciousness immediately. Denied any weakness or seizures or postictal state. Patient did have one episode of vomiting while in route to ER. Otherwise patient denied any dizziness or lightheadedness. No chest pain or shortness of breath. No headache. No recent illnesses. No fever no chills. No cough or sputum production. Patient has an appointment to follow with vascular surgery for possible stenting of subclavian artery as an outpatient. Recent admission patient had work-up including EEG, MRI of the brain with and without contrast, MRA of the head and neck, tilt table test and CTA neck were done and was discharged from hospital on 04/02/2020. Patient had CT head and CT cervical spine was done in the ER showed mild white matter changes consistent with chronic small vessel ischemia demyelinating disease. No significant atrophy. No acute intracranial abnormality. No change compared to old exam. Negative CT cervical spine No fractures. No change compared to old exam. EKG showed normal sinus rhythm Chest x-ray showed postsurgical changes with significant volume loss on the right side. Increased density at the superior right pulmonary hilus consistent with scarring unchanged compared to old exam. Stable pleural thickening right lung apex. Large hiatal hernia increased compared to old exam. 05/27/2020 Patient is currently lying in the bed comfortably. Still complains of dizziness with getting up. Continued on medications for orthostatic hypotension. Cardiology has seen the patient and recommended loop recorder placement. Continue with telemetry monitoring. patient denied any complaints of chest pain or shortness of breath. No nausea vomiting or headache. No fever no chills. Current medications reviewed. Objective - Vital Signs Vital signs: Vital Signs Temp 97.6 F 05/27/20 15:00 Pulse 70 05/27/20 19:59 Resp 18 05/27/20 22:01 BP 152/79 05/27/20 22:01 Pulse Ox 92 L 05/27/20 22:01 Intake & Output 05/27/20 05/27/20 05/28/20 06:59 18:59 06:59 Intake Total 100 Output Total 0 Balance 100 Intake: IV 100 Output: Urine 0 Other: Voiding Method Toilet # Voids 2 1 0 - Exam PHYSICAL EXAMINATION: Patient is lying in the bed comfortably, no acute distress, awake alert and oriented.. HEENT: Normocephalic. Neck is supple. Pupils reactive. Nostrils clear. Oral cavity is moist. Ears reveal no drainage. Neck reveals no JVD, carotid bruits, or thyromegaly. CHEST EXAMINATION: Trachea is central. Symmetrical expansion. Lung freeman clear to auscultation and percussion. CARDIAC: Normal S1, S2 with no gallops. No murmurs ABDOMEN: Soft. Bowel sounds normal. No organomegaly. No abdominal bruits. Extremities: reveal no edema. No clubbing or cyanosis Neurologically awake, alert, oriented x3 with well-coordinated movements. No focal deficits noted Skin: No rash or skin lesions. Psychiatric: Coperative. Nonsuicidal Musculoskeletal: No joint swelling or deformity. Normal range of motion. - Labs CBC & Chem 7: 05/26/20 13:43 05/26/20 13:43 Labs: Abnormal Lab Results - Last 24 Hours (Table) 05/27/20 Range/Units 11:09 D-Dimer 0.65 H (<0.60) mg/L FEU Assessment and Plan Assessment: acute syncopal episode likely due to severe dysautonomia. r/o Arrhythmia. Orthostatic hypotension patient is on Florinef. 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 Left ICA 40% stenosis History of COPD/asthma stable History of Tierney's esophagus History of lung cancer status post right upper lobe resection and chemoradiation Hypertension Hyperlipidemia History of seizure disorder Obstructive sleep apnea not on CPAP Depression DVT prophylaxis with heparin subcu Plan: Patient will be continued on telemetry monitoring. Continue with aspirin statins and Florinef 0.1 mg daily. Continue with breathing treatments and gentle hydration. Cardiology was consulted for evaluation. Prognosis guarded. Time with Patient: Greater than 30
[2020-05-28] MEDS: HEPARIN SODIUM,PORCINE 5,000 UNIT/ML 1 ML VIAL SQ SCH ×2 (02:14→09:08)
[2020-05-28] MEDS: ESCITALOPRAM 5 MG TAB PO SCH (02:15)
[2020-05-28 06:42] VITALS: BP 159/88; TEMP 97.5
[2020-05-28] MEDS: PANTOPRAZOLE 40 MG TABLET PO SCH (06:47)
[2020-05-28] MEDS: FORMOTEROL FUMARATE 20 MCG/2 ML NEBU INHALATION SCH (07:22)
[2020-05-28] MEDS: IPRATROPIUM 0.5 MG/2.5 ML NEBU INHALATION SCH ×2 (07:22→11:15)
[2020-05-28 07:44] VITALS: PULSE 70
[2020-05-28] MEDS: MULTIVITAMINS, THERA 1 EACH TAB PO SCH (09:07)
[2020-05-28] MEDS: ASPIRIN 81 MG PO SCH (09:07)
[2020-05-28] MEDS: FLUDROCORTISONE 0.1 MG TAB PO SCH (09:08)
--- NOTE | 2020-05-28 12:04 | P.PN ---
Subjective HISTORY OF PRESENTING ILLNESS This is a pleasant 74-year-old female past medical history significant for with static hypotension, COPD, TIA, hypertension, lung cancer status post partial lobectomy and dyslipidemia. She follows in the office with Dr. Shafer. She underwent implantation of loop recorder device yesterday with Dr. Gardner. Site is clean, dry and intact with a suture in place. Blood pressure 159/88 heart rate 66 afebrile maintaining oxygen saturation on nasal cannula. She still complains of feeling dizzy with changing positions. She has been advised to change positions slowly. PHYSICAL EXAMINATION CONSTITUTIONAL: No apparent distress. HEENT: Head is normocephalic. Pupils are equal, round. Sclerae anicteric. Mucous membranes of the mouth are moist. No JVD. No carotid bruit. CHEST EXAMINATION: Lungs are clear to auscultation. No chest wall tenderness is noted on palpation or with deep breathing. HEART EXAMINATION: Regular rate and rhythm. S1, S2 heard. No murmurs, gallops or rub. EXTREMITIES: 2+ peripheral pulses, no lower extremity edema and no calf tenderness. ASSESSMENT Syncope History of orthostatic hypotension syndrome Dyslipidemia History of lung cancer s/p lobectomy Former nicotine dependence PLAN Stable for discharge from a cardiac perspective. Follow-up in the office in one week for suture removal. She has been advised to change position slowly, sit with her feet planted for 2- 3 minutes before standing. Recorder implantation site dry until follow-up visit. Discussed signs of infec tion for the patient be aware of. Nurse Practitioner note has been reviewed, I agree with a documented findings and plan of care. Patient was seen and examined. Objective - Vital Signs Vital signs: Vital Signs Temp 97.5 F L 05/28/20 06:39 Pulse 70 05/28/20 07:43 Resp 18 05/27/20 22:01 BP 159/88 05/28/20 06:39 Pulse Ox 96 05/28/20 07:22 Intake & Output 05/27/20 05/28/20 05/28/20 18:59 06:59 18:59 Intake Total 100 Output Total 0 Balance 100 Intake: IV 100 Output: Urine 0 Other: Voiding Method Toilet Toilet Toilet # Voids 1 0 - Labs CBC & Chem 7: 05/26/20 13:43 07/26/20 13:43 Labs: Abnormal Lab Results - Last 24 Hours (Table) 05/27/20 Range/Units 11:09 D-Dimer 0.65 H (<0.60) mg/L FEU
--- NOTE | 2020-05-29 09:11 | P.DS ---
Providers Date of admission: 05/26/20 15:42 Expected date of discharge: 05/28/20 Attending physician: Juan Peterson Consults: 05/26/20 15:43 Consult Physician Routine Consulting Provider: Reggie Miles Consult Reason/Comments: syncope Do you want consulting provider notified?: Yes Primary care physician: Christina Rob Hospital Course: Final Diagnosis acute syncopal episode likely due to severe dysautonomia. r/o Arrhythmia. 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 Left ICA 40% stenosis History of COPD/asthma stable History of Tierney's esophagus History of lung cancer status post right upper lobe resection and chemoradiation Hypertension Hyperlipidemia History of seizure disorder Obstructive sleep apnea not on CPAP Depression DVT prophylaxis Discharge disposition Patient is being discharged in a stable condition with guarded prognosis to home. Patient will follow-up with Dr. Christina Rob upon discharge. Patient will also be following up with Dr. Shafer in the outpatient setting next week. Total time taken is 35 minutes. History of present illness This is an 74-year-old female who was recently admitted with altered mental status, fall, possible syncope and was being closely monitored. Cardiology evaluated the patient patient received a loop recorder and will follow-up with cardiology in the outpatient setting. During the syncopal episode patient fell backwards and hit her head and during hospitalization had a CT of the head which showed some chronic small vessel ischemia demyelinating disease with no signs of acute intracranial abnormality and no changes from previous exam. No fractures were noted upon admission. Patient states she is feeling better and would like to go home today. No reports of dizziness or syncopal episodes noted. Currently no reports of chest pain, shortness of breath, or palpitations. Patient is afebrile. No reports of nausea or vomiting and patient is tolerating diet. Guarded prognosis. On exam vital signs are stable. Temp is 97.5F, pulse is 66, respirations are 17, blood pressure is 159/88, oxygen saturation is 96% on room air. Cardio S1, S2 are muffled. Respiratory shows diminished breath sounds at the bases with a few scattered rhonchi noted. Abdomen is soft and nontender. Nervous system shows no focal deficits. Please refer to medication reconciliation sheet for a list of medications. Patient Condition at Discharge: Stable Plan - Discharge Summary Discharge Rx Participant: No New Discharge Prescriptions: Continue Omeprazole [PriLOSEC] 20 mg PO BID Albuterol Sulfate [Ventolin HFA] 2 puff INHALATION RT-Q6H PRN PRN Reason: Shortness Of Breath Tiotropium Br/Olodaterol HCl [Stiolto Respimat Inhal [place]] 2 puff INHALATION RT-DAILY Multivitamins, Thera [Multivitamin (formulary)] 1 tab PO DAILY Difluprednate [Durezol] 1 drop RIGHT EYE BID Alendronate Sodium [Fosamax] 70 mg PO WE Aspirin 81 mg PO BID chew Atorvastatin [Lipitor] 80 mg PO HS Escitalopram [Lexapro] 5 mg PO HS Fludrocortisone [Florinef] 0.1 mg PO DAILY Discharge Medication List Omeprazole [PriLOSEC] 20 mg PO BID 04/23/16 [History] Albuterol Sulfate [Ventolin HFA] 2 puff INHALATION RT-Q6H PRN 03/31/20 [History] Alendronate Sodium [Fosamax] 70 mg PO WE 03/31/20 [History] Difluprednate [Durezol] 1 drop RIGHT EYE BID 03/31/20 [History] Multivitamins, Thera [Multivitamin (formulary)] 1 tab PO DAILY 03/31/20 [History] Tiotropium Br/Olodaterol HCl [Stiolto Respimat Inhal [place]] 2 puff INHALATION RT-DAILY 03/31/20 [History] Aspirin 81 mg PO BID chew 04/02/20 [Rx] Atorvastatin [Lipitor] 80 mg PO HS 05/26/20 [History] Escitalopram [Lexapro] 5 mg PO HS 05/26/20 [History] Fludrocortisone [Florinef] 0.1 mg PO DAILY 05/26/20 [History] Follow up Appointment(s)/Referral(s): Rayo Shafer MD [STAFF PHYSICIAN] - 06/03/20 3:00 pm (suture removal on 06/03/20 at 3:[address] pm[address] follow up with [address] Shafer 07/24/20 at 10:45 am.) Christina Rob DO [Primary Care Provider] - 06/03/20 12:15 pm Patient Instructions/Handouts: Syncope (GEN), Cardiac Loop Recorder Insertion (GEN) Activity/Diet/Wound Care/Special Instructions: Activity Limited until follow-up Follow-up with primary care provider upon discharge Follow-up with cardiology as discussed and scheduled Continue current diet Discharge Disposition: HOME SELF-CARE
== END 2020-05-28 12:43 | disposition home or self-care (01) ==
LOC: EC 13:29 → SUPCPDRO 13:29 → 4SSUR 15:42 → 3NCARDOBS 05-27 11:00
PROVIDERS: ADMIT Internal Medicine; ATTEND Internal Medicine
DX: R55 Syncope and collapse (principal); E78.5 Hyperlipidemia, unspecified; F32.9 Major depressive disorder, single episode, unspecified; G40.909 Epilepsy, unspecified, not intractable, without status epilepticus; G47.33 Obstructive sleep apnea (adult) (pediatric); I10 Essential (primary) hypertension; J43.9 Emphysema, unspecified; K22.70 Barrett's esophagus without dysplasia; K44.9 Diaphragmatic hernia without obstruction or gangrene; S09.90XA Unspecified injury of head, initial encounter; W19.XXXA Unspecified fall, initial encounter; Z79.52 Long term (current) use of systemic steroids; Z79.82 Long term (current) use of aspirin; Z79.83 Long term (current) use of bisphosphonates; Z79.899 Other long term (current) drug therapy; Z82.49 Family history of ischemic heart disease and other diseases of the circulatory system; Z85.118 Personal history of other malignant neoplasm of bronchus and lung; Z86.73 Personal history of transient ischemic attack (TIA), and cerebral infarction without residual deficits; Z87.891 Personal history of nicotine dependence; Z90.2 Acquired absence of lung [part of]; Z90.710 Acquired absence of both cervix and uterus; Z92.21 Personal history of antineoplastic chemotherapy; Z92.3 Personal history of irradiation; Z03.818 Encounter for observation for suspected exposure to other biological agents ruled out; I77.1 Stricture of artery
CPT/HCPCS: 96361 ×3; 96360; 99285; 36415; 94640 ×4; 94760; 93005; 33285; 85379; 80053; 83735; 84484; 85025; 85610; 85730; 81003; 71045; 72125; 70450; G0378 ×4; C1764; U0003; J2250; J1644 ×3; J0690; J2001

== ENCOUNTER 2020-09-05 05:58 | Day surgery (SDC) | payer MEDICARE ==
[2020-09-03 12:28] VITALS: BMI 26.4
[~2020-09-05 05:58] MED LIST changes: +ALPRAZolam 0.25 MG TAB PO PRN; +ASPIRIN 325 MG TAB PO STA; -LACTATED RINGERS 1,000 ML IV SCH; -LIDOCAINE 1% 20 ML VIAL (10MG/ML) FOR IV START INTRADERMA ONE; +SODIUM CHLORIDE 0.9% 1,000 ML in EMPTY BAG 1 BAG IV ONE
[2020-09-05] MEDS: LIDOCAINE 1% INJ 10MG/ML (20 ML MDV) SQ ONE ×2 (07:52→08:20)
[2020-09-05] MEDS ORDERED: MORPHINE SULFATE 4 MG/ML SYRINGE IV ONE (08:20)
[2020-09-05] MEDS ORDERED: MIDAZOLAM 2 MG/2 ML VIAL IV ONE (08:20)
[2020-09-05] MEDS ORDERED: HEPARIN SODIUM 1,000 UN/ML (10ML VL) IV ONE (08:20)
[2020-09-05 08:40] VITALS: RESP 18; TEMP 98.1
[2020-09-05] MEDS ORDERED: IOPAMIDOL-250 50ML BTL INTRAARTER ONE (08:51)
[2020-09-05] MEDS ORDERED: IOPAMIDOL-250 100ML BTL INTRAARTER ONE (08:51)
[2020-09-05] MEDS ORDERED: CLOPIDOGREL 75 MG TAB PO ONE (09:12)
[2020-09-05] MEDS ORDERED: ALBUTEROL HFA INHALER INHALATION PRN (09:37)
--- NOTE | 2020-09-05 09:47 | IR ---
EXAMINATION TYPE: IR stent intravas non coronary DATE OF EXAM: 09/05/2020 COMPARISON: NONE HISTORY: Fluoroscopy time. Fluoroscopy was provided to the referring clinician.
--- NOTE | 2020-09-05 09:57 | P.OP ---
Date of Procedure: 09/05/20 Preoperative Diagnosis: #1: Carotid stenosis. #2: Left subclavian artery stenosis/subclavian steal syndrome. #3: Multiple syncopal episodes thought to be secondary to arterial insufficiency. Postoperative Diagnosis: #1: High-grade stenosis innominate artery origin. #2: Subtotal occlusion origin left subclavian artery with retrograde fill of the left subclavian artery via the left vertebral artery Procedure(s) Performed: #1: Ultrasound-guided cannulation right femoral artery. #2: Arch aortogram. #3: Ultrasound-guided cannulation left radial artery. #4: Left subclavian angiogram. #5: Balloon dilation left subclavian artery. #6: Placement balloon expandable stent left subclavian artery Implants: #1:6 mm x 37 mm balloon expandable stent left subclavian artery Anesthesia: local Surgeon: Jerry Gastelum Estimated Blood Loss (ml): 20 Pathology: none sent Condition: stable Disposition: same day Indications for Procedure: Patient is a 74-year-old female who presented for vascular surgical evaluation regarding multiple syncopal episodes. Workup included CT angiography as well as arterial Doppler studies of the upper extremity. Subclavian steal syndrome was noted with retrograde flow via the cubital artery filling/feeding the left subclavian artery. Patient is now offered catheter directed angiography for further delineation of vascular anatomy and possible intervention from a percutaneous approach. Description of Procedure: Patient is brought to the special procedure suite. The right and left groins sterilely prepped and draped in usual manner. Patient did receive 1 mg of Versed and 1 mg of morphine for moderate conscious sedation purposes. Utilizing ultrasound the right femoral artery was identified. 1% Xylocaine was utilized for local anesthesia tissues overlying the femoral artery. Through this anesthetized area a multipurpose needle was utilized to cannulate the artery. Once cannulated Softip guidewire is advanced into the artery. The needle was withdrawn and a 5-[place] sheath was placed. Guidewire and catheter were advanced into the ascending aortic arch. Guidewire was withdrawn and arch aortogram and the RPO and LPO positions were performed. Findings: Type I arch is identified. There is a high-grade and heavily calcified stenosis of the of the innominate artery. The right vertebral artery appears unremarkable. The right carotid artery is extremely tortuous in its proximal segment. The origin of the left subclavian artery is unremarkable. Origin of the left subclavian artery demonstrates a 95% stenosis over distance of approximate 1.5-2 cm. There is retrograde fill of the subclavian artery via the left vertebral artery. Because the patient's symptoms it was felt appropriate to treat the left subclavian artery stenosis given the severe stenosis of her innominate artery and retrograde fill of the subclavian segment. As such the left arm were sterilely prepped and draped in usual manner overlying the brachial artery area. Ultrasound was utilized to identify the brachial artery. 1% Xylocaine was utilized for local anesthesia tissues overlying the brachial artery. Through this anesthetized area a multipurpose needle was utilized to cannulate the artery. Once cannulated Softip guidewire was advanced into the artery. The needle was withdrawn and a 6-[place]bian sheath was placed. The patient did receive 2000 units of heparin intravenously. A Glidewire was utilized to traverse the subclavian artery stenosis. Arch aortogram was then performed with roadmapping technique. A 5 mm x 80 mm balloon dilation catheter was utilized to balloon dilate the stenotic area. A 6 mm x 37 mm balloon expandable stent was then selected and advanced over the guidewire and utilized to stent open the stenotic segment. This was performed allowing to the need to maintain forward flow into the cerebral circulation and avoid recurrent subclavian artery steal syndrome. Completion angiogram demonstrated the stone stented segment now to be widely patent with antegrade flow of the vertebral artery. With the above findings noted both she's were withdrawn and pressure was held at each site until all evidence of bleeding ceased. Total conscious sedation time 67 minutes. Total contrast volume used 150 ML's of Isovue 250. Total fluoroscopy time 4.7 minutes. Plan is for dual anti-platelet therapy. I will see the patient the office in one week to map out further strategy regarding the innominate artery stenosis.
[2020-09-05 14:08] VITALS: BP 157/84
[2020-09-05 15:20] VITALS: PULSE 66
[2020-09-05] MEDS ORDERED: PANTOPRAZOLE 40 MG TABLET PO SCH (17:30)
[2020-09-05] MEDS ORDERED: ESCITALOPRAM 5 MG TAB PO SCH (21:00)
[2020-09-05] MEDS ORDERED: ASPIRIN 81 MG PO SCH (21:00)
[2020-09-05] MEDS ORDERED: ATORVASTATIN 80 MG TAB PO SCH (21:00)
[2020-09-05] MEDS ORDERED: NON FORMULARY DRUG (Difluprednate [Durezol] 5 ML Drops) RIGHT EYE SCH (21:00)
[2020-09-06] MEDS ORDERED: NON FORMULARY DRUG (Tiotropium Br/Olodaterol Hcl [Stiolto Respimat Inhal Spray] 4 GM Mist. INHALATION SCH (08:00)
[2020-09-06] MEDS ORDERED: CLOPIDOGREL 75 MG TAB PO SCH (09:00)
[2020-09-06] MEDS ORDERED: FLUDROCORTISONE 0.1 MG TAB PO SCH (09:00)
[2020-09-06] MEDS ORDERED: MULTIVITAMINS, THERA 1 EACH TAB PO SCH (09:00)
[2020-09-11] MEDS ORDERED: NON FORMULARY DRUG (Alendronate Sodium [Fosamax] 70 MG Tablet) PO SCH (09:37)
== END 2020-09-05 14:55 | disposition home or self-care (01) ==
LOC: CATHCVL 05:58
PROVIDERS: ATTEND Surgery
DX: I70.8 Atherosclerosis of other arteries (principal); G45.8 Other transient cerebral ischemic attacks and related syndromes; I77.1 Stricture of artery; I65.22 Occlusion and stenosis of left carotid artery
CPT/HCPCS: 37236; 76937; 36221; C1769 ×5; C1894; C1725; C1876; J2250; J2270; J2001; J1644; Q9966 ×2; 37218

== ENCOUNTER 2020-10-14 09:39 | Inpatient (IN) | payer MEDICARE ==
[2020-10-10 11:15] VITALS: BMI 26.7
[~2020-10-14 09:39] MED LIST changes: +ASPIRIN 325 MG TAB PO PRN; -ASPIRIN 325 MG TAB PO STA; +ZOLPIDEM 5 MG TAB PO PRN
[2020-10-14 10:09] LABS: Basophils # (A) 0.1 k/uL (0-0.2); Basophils % (A) 1 %; Eosinophils # (A) 0.3 k/uL (0-0.7); Eosinophils % (A) 5 %; HCT 42.1 % (34.0-46.0); HGB 14.1 gm/dL (11.4-16.0); Lymphocytes # (A) 1.8 k/uL (1.0-4.8); Lymphocytes % (A) 24 %; MCH 29.2 pg (25.0-35.0); MCHC 33.5 g/dL (31.0-37.0); Mean Platelet Volume 7.5; Monocytes # (A) 0.3 k/uL (0-1.0); Monocytes % (A) 4 %; Neutrophils # (A) 4.6 k/uL (1.3-7.7); Neutrophils % (A) 64 %; Platelet Count 290 k/uL (150-450); RBC 4.84 m/uL (3.80-5.40); RDW 13.9 % (11.5-15.5); WBC 7.2 k/uL (3.8-10.6)
[2020-10-14 11:04] LABS: African American GFR (CKD) >90 (>60 ml/min/1.73 sqM); Anion Gap 4 mmol/L; Blood Urea Nitrogen 19 mg/dL (7-17); Calcium 8.8 mg/dL (8.4-10.2); Carbon Dioxide 31 mmol/L (22-30); Chloride 106 mmol/L (98-107); Glucose 90 mg/dL (74-99); Non-African American GFR(CKD) 86 (>60 ml/min/1.73 sqM); Potassium 3.4 mmol/L (3.5-5.1); Sodium 141 mmol/L (137-145)
[2020-10-14] MEDS: LIDOCAINE 1% INJ 10MG/ML (10 ML MDV) SQ ONE ×2 (11:28→11:54)
[2020-10-14] MEDS ORDERED: IOPAMIDOL-250 100ML BTL INTRAARTER ONE (12:15)
[2020-10-14] MEDS ORDERED: IOPAMIDOL-250 50ML BTL INTRAARTER ONE (12:20)
[2020-10-14] MEDS ORDERED: hydrALAZINE HCL 20 MG/ML 1 ML VIAL IVP ONE (12:58)
--- NOTE | 2020-10-14 13:09 | IR ---
EXAMINATION TYPE: IR angio subclavian DATE OF EXAM: 10/14/2020 COMPARISON: NONE HISTORY: Fluoroscopy time. Fluoroscopy was provided to the referring clinician.
--- NOTE | 2020-10-14 13:34 | CT ---
EXAMINATION TYPE: CT brain wo con DATE OF EXAM: 10/14/2020 COMPARISON: 05/26/2020 HISTORY: Code stroke CT DLP: 1134.3 mGycm FINDINGS: There is no evidence of acute hemorrhage or midline shift. Vasculature somewhat hyperdense likely rel ated the patient having been immediately post angiogram. There is patchy periventricular white matter areas of low attenuation. Postsurgical change involving the right orbit. Nasal septal deviation noted. No significant changes of sinusitis. Craniocervical junction maintained . IMPRESSION: 1. No evidence of acute hemorrhage. Patchy low attenuation the white matter is nonspecific but most l ikely on the basis of remote ischemia given appears similar to the prior exam. If there is concern fo r acute ischemia correlate with MRI as clinically warranted.
--- NOTE | 2020-10-14 14:01 | CT ---
EXAMINATION TYPE: CT angio head neck DATE OF EXAM: 10/14/2020 HISTORY: Innominate artery stenosis. Acute onset code stroke. Acute onset unresponsiveness. COMPARISON: CTA Head Neck April 01, 2020 MRA head April 01, 2020 CT DLP: 295.7 mGycm. Automated Exposure Control for Dose Reduction was Utilized. TECHNIQUE: CTA scan of the head and neck are performed with IV Contrast, patient injected with 65 mL of Isovue 370, axial images are obtained, coronal and sagittal reformatted images are reviewed. Thre e-D reconstructed images are created on an independent workstation and reviewed. FINDINGS: Carotid/Vascular Structures: Mild to moderate peripheral plaque in the aortic arch. Normal three-vess el origin from the aortic arch. Prominent calcified peripheral plaque at origin right brachiocephalic artery causes stenosis approaching but under 50% axial image 23. Normal origin right common carotid artery from the right brachiocephalic artery. Tortuous course to the right common carotid artery rede monstrated. Mild to moderate mixed plaque in the right internal carotid artery shortly past carotid b ulb. No significant stenosis. Patent external carotid artery without significant plaque or stenosis. There is new stent graft in the left subclavian artery. Patency is identified. Left common carotid artery redemonstrates tortuous course. No significant plaque or stenosis. Mild-to -moderate peripheral calcified plaque in the left proximal internal carotid artery shortly after bulb without significant stenosis. Patent external carotid artery without significant stenosis. Vertebral arteries are patent to basilar junction. Hypoplastic bilateral posterior communicating robinson sean. No significant focal stenosis or aneurysmal change of the posterior circulation. There is hypop lastic anterior communicating artery. There is no significant focal stenosis or aneurysmal change storm ntified. Other: Artificial right globe redemonstrated. Multilevel spurring and disc space narrowing throughout the cervical and thoracic spine. There is new endotracheal tube terminating at level of aortic knob Persistent right apical volume loss with irregular consolidation and/or scarring on background of mod erate underlying emphysematous change. Partial visualization of coronary artery calcification. IMPRESSION: 1. No significant stenosis or aneurysm at level of [place]. No significant change from prior MRA [place]. 2. New stent graft in the left subclavian artery. No new significant stenosis in the common or buying intern al carotid arteries bilaterally. Tortuous course of the common carotid arteries bilaterally remains p resent.
[2020-10-14 14:26] LABS: ABG Base Excess -3.3 mmol/L; ABG HCO3 22 mmol/L (21-25); ABG Oxygen Saturation 98.8 % (94-97); ABG PCO2 41 mmHg (35-45); ABG PH 7.35 (7.35-7.45); ABG PO2 >400 mmHg (83-108); ABG TCO2 24 mmol/L (19-24); Allen Test Performed? Yes
[2020-10-14] MEDS ORDERED: NOREPINEPHRIN 4 MG-0.9% NS PMX 4 MG/250 ML ML IV ONE (14:55)
[2020-10-14] MEDS ORDERED: CISATRACURIUM 2 MG/ML 5 ML VIAL IV ONE ×2 (14:55→14:57)
[2020-10-14] MEDS ORDERED: MORPHINE SULFATE 4 MG/ML SYRINGE ONE (15:08)
[2020-10-14] MEDS ORDERED: CLEVIDIPINE BUTYRATE 25 MG/50 ML VIAL IV ONE (15:08)
[2020-10-14] MEDS: CLEVIDIPINE BUTYRATE 25 MG in EMPTY BAG 1 BAG IV SCH (15:30)
--- NOTE | 2020-10-14 15:37 | P.OP ---
Date of Procedure: 10/14/20 Preoperative Diagnosis: High-grade innominate artery stenosis. Postoperative Diagnosis: Same. Procedure(s) Performed: #1: Ultrasound-guided cannulation right brachial artery. #2: Right subclavian angiogram. #3: Cannulation right femoral artery. #4: Arch aortogram with selective catheterization innominate artery. Anesthesia: local Surgeon: Jerry Gastelum Estimated Blood Loss (ml): 25 Pathology: none sent Condition: other (Possible cerebrovascular accident) Disposition: ICU Indications for Procedure: Patient is a 74-year-old female with a long-standing history of multiple syncopal episodes. During workup for this she was found be suffering from a left subclavian artery occlusion resulting in subclavian steal syndrome. This previously had been successfully balloon dilated and stented open. During this procedure it was noted she had a high-grade innominate artery stenosis at its origin. Patient is offered possible percutaneous intervention to relieve the innominate artery stenosis. 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 The right brachial area as well as the bilateral common femoral areas were sterilely prepped and draped in usual manner. 1% Xylocaine was utilized for local anesthesia tissues overlying the right brachial artery. Through this anesthetized area and with the aid of ultrasound a multipurpose needle was utilized to cannulate the artery. Once cannulated a guidewire was advanced. The needle was withdrawn and a 5-[place] sheath was placed. Angled glide catheter and guidewire were advanced under fluoroscopic guidance. A angiogram was performed. Utilizing multiple catheter and guidewire combinations in an attempt to cross the lesion this could not be performed and this approach was abandoned. Attention was turned to the right groin. 1% Xylocaine was utilized for local anesthesia tissues overlying the right femoral artery pulse. Through this anesthetized area a multipurpose needle was utilized candidate the artery. Once cannulated Softip guidewire is advanced into the artery. The needle was withdrawn and a 6-[place] sheath was placed. Pigtail catheter and guidewire combinations were advanced into the ascending aortic arch. Guidewire was withdrawn and with the aid of a power injector arch aortogram was performed. His demonstrated the recently identified stenosis. Angled glide catheter and guidewire in combination were utilized to cross the lesion. Multiple angle images were obtained. Based on these images it was decided not to perform any intervention is the risk of dissection and/or other complication appeared to outweigh the potential benefits. As such all catheter, wire and sheath were withdrawn. Pressure was held at both the puncture sites until all evidence of bleeding ceased. It was during this time the patient became hypotensive and appeared to suffer cerebrovascular accident. Stroke team was called. Anesthesia intubated the patient. Shortly thereafter the patient began to move all extremities and in an effort to obtain a computed tomography scan of her brain the patient was administered propofol. The patient was taken to CAT scan. CTA of the neck and intracranial vessels were performed as well as a CT without contrast of the bra in to evaluate for hemorrhage. I did speak with neuro-interventional who reviewed the films. They did not find any significant new issue and recommended medical therapy. Patient was transferred to the intensive care unit.
[2020-10-14] MEDS ORDERED: SODIUM CHLORIDE 0.9% 1,000 ML IV ONE (15:45)
[2020-10-14] MEDS: SODIUM CHLORIDE 0.9% 1,000 ML IV ONE (16:01)
[2020-10-14] MEDS: NOREPINEPHRINE 32 MG in SODIUM CHLORIDE 0.9% 218 ML IV SCH ×2 (16:01→16:04)
[2020-10-14] MEDS ORDERED: NALOXONE 0.4 MG/ML 1 ML VIAL IV PRN (16:04)
--- NOTE | 2020-10-14 16:07 | XR ---
EXAMINATION TYPE: XR chest 1V portable DATE OF EXAM: 10/14/2020 COMPARISON: 05/26/2020 HISTORY: ET tube placement TECHNIQUE: Single frontal view of the chest is obtained. FINDINGS: There is volume loss on the right with apical pleural thickening or mass in right-sided co nsolidation. Left lower lobe infiltrate noted. Shift from left to right mediastinal structures. ET tu be approximately 1.6 cm above the [place]. Heart size stable. Hernia again noted. NG tube seen extendi ng into left upper quadrant likely within the gastric body. IMPRESSION: 1. Pleural-parenchymal changes are stable. 2. ET tube 1.6 cm above [place].
--- NOTE | 2020-10-14 16:30 | P.CNPUL ---
History of Present Illness Consult date: 10/14/20 Requesting physician: Jerry Gastelum Reason for consult: other (Hypotension and CVA) Chief complaint: Multiple syncopal episodes History of present illness: This is a 74-year-old female with history of multiple syncopal episodes. 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 Patient was admitted for percutaneous intervention to relieve the innominate artery stenosis. Patient had the procedure in the cardiac catheterization lab, beginning the procedure, the patient became hypotensive and there was a concern that the patient may have severed CVA. Stroke team was called, patient was intubated by anesthesia, patient underwent CTA of the neck and intracranial vessels as well as CT without contrast of the brain to evaluate for hemorrhage. The neuro interventional team recommended mostly medical therapy patient was transferred to the ICU on mechanical ventilation, and she was hypotensive upon arrival to the ICU requiring fluid boluses and norepinephrine drip. As soon as the patient arrived to the ICU, I placed a right femoral triple-lumen catheter, and a right brachial arterial line. Pressure was noted to be low, more fluid boluses were given, and norepinephrine drip was started. Attempted to place a right IJ triple-lumen catheter, however I could not insert the guidewire. No further attempts were made, then the right femoral vein was cannulated easily and a triple-lumen catheter was placed. Norepinephrine was started for low blood pressure. Her ventilator settings were reviewed, her ABG showed a pO2 of over 400 pCO2 of 41 pH of 7.35. Hence her FiO2 was decreased down to 50%, and no changes were made in her present ventilator settings. Patient is now on assist control rate of 14 volume is 450 FiO2 50% and PEEP of 5 Review of Systems ROS unobtainable: due to endotracheal tube Past Medical History Past Medical History: Cancer, COPD, CVA/TIA, Eye Disorder, GERD/Reflux, Hyperlipidemia, Hypertension, Osteoarthritis (OA), Seizure Disorder, Sleep Apnea/CPAP/BIPAP, Syncope Additional Past Medical History / Comment(s): hx of lung cancer with upper right lobe removed & received chemo & radiation tx. Barretts esophagus, hiatal hernia, incont of urine wears depends, tia 15 yrs. ago-no residual effects,, migraines, no c-pap machine, DDD. , SOB with activity, episodes of passing out, ?seizures, osteopenia, detached retina right eye after cataract surg. Cont. to see shadows from her R eye. History of Any Multi-Drug Resistant Organisms: None Reported Past Surgical History: Bladder Surgery, Heart Catheterization, Heart Catheterization With Stent, Hysterectomy, Tonsillectomy Additional Past Surgical History / Comment(s): rectocele,cystocele(3 sx total has mesh patch), lasik eye sx, cyst removed lt breast-benign,blepharoplasty, sep 05 2015 upper lobe rt lung removed, cancerous lump removed from back of [id number] radiation tx. after, EPIDURAL pain procedure, loop recorder insertion, cataracts removed Past Anesthesia/Blood Transfusion Reactions: No Reported Reaction Date of Last Stent Placement:: 2019 Past Psychological History: Depression Additional Psychological History / Comment(s): SPOUSE MAY 2016 Smoking Status: Former smoker Past Alcohol Use History: Rare Additional Past Alcohol Use History / Comment(s): STARTED SMOKING AT AGE 14, SMOKED 2 PPD. QUIT SMOKING 1999, CBD oil to skin for pain @ times. Past Drug Use History: None Reported - Past Family History Father Family Medical History: Liver Disease Additional Family Medical History / Comment(s): CIRRHOIS OF THE LIVER Mother Family Medical History: Congestive Heart Failure (CHF) Additional Family Medical History / Comment(s): LUNG DISEASE, 02 DEPENDANT- SMOKED FROM AGE 13 TILL AGE 85. Medications and Allergies Home Medications Medication Instructions Recorded Confirmed Type Omeprazole [PriLOSEC] 20 mg PO BID 04/23/16 10/14/20 History Albuterol Sulfate [Ventolin HFA] 2 puff INHALATION RT-Q6H PRN 03/31/20 10/14/20 History Alendronate Sodium [Fosamax] 70 mg PO WE 03/31/20 10/14/20 History Difluprednate [Durezol] 1 drop RIGHT EYE BID 03/31/20 10/14/20 History Multivitamins, Thera [Multivitamin 1 tab PO DAILY 03/31/20 10/14/20 History (formulary)] Tiotropium Br/Olodaterol HCl 2 puff INHALATION RT-DAILY 03/31/20 10/14/20 History [Stiolto Respimat Inhal [place]] Aspirin 81 mg PO BID chew 04/02/20 10/14/20 Rx Atorvastatin [Lipitor] 80 mg PO HS 05/26/20 10/14/20 History Escitalopram [Lexapro] 10 mg PO HS 05/26/20 10/14/20 History Fludrocortisone [Florinef] 0.1 mg PO DAILY 05/26/20 10/14/20 History Ascorbic Acid [Vitamin C] 500 mg PO DAILY 10/10/20 10/14/20 History Clopidogrel [Plavix] 75 mg PO DAILY 10/10/20 10/14/20 History Zinc 50 mg PO DAILY 10/10/20 10/14/20 History Allergies Allergy/AdvReac Type Severity Reaction Status Date / Time adhesive tape Allergy Rash/Hives Verified 10/14/20 09:51 Physical Exam Vitals: Vital Signs Temp Pulse Pulse Resp BP BP Pulse Ox 10/14/20 15:45 78 14 140/72 97 10/14/20 15:30 80 14 98/73 96 10/14/20 15:15 96 14 203/115 10/14/20 15:00 94 19 72/44 97 10/14/20 14:45 83 15 81/50 97 10/14/20 14:30 84 14 97/68 98 10/14/20 14:15 92 20 69/44 98 10/14/20 14:00 98.2 F 78 14 87/53 97 10/14/20 13:45 85 14 96/59 96 10/14/20 10:01 98.2 F 62 18 195/90 94 L Intake and Output 10/14/20 10/14/20 10/14/20 06:59 14:59 22:59 Intake Total 211.214 12.520 Balance 211.214 12.520 Intake: IV 200 Intake, IV Titration 12.520 Amount Clevidipine Butyrate 25 1.233 mg In Empty Bag 1 bag @ 1 MG/HR 2 mls/hr IV .Q24H JAMIE Rx#:[id number] Norepinephrine 32 mg In 0.073 Sodium Chloride 0.9% 218 ml @ 0.05 MCG/KG/MIN 1.46 mls/hr IV .Q24H JAMIE Rx#: [id number] propofoL 1,000 mg In 11. Empty Bag 1 bag @ Titrate IV .Q0M JAMIE Rx#: [id number] Other: Weight 62.3 kg 62.3 kg ABP, PAP, CO, CI - Last 8 Hours Arterial Blood Pressure 157/62 Arterial Blood Pressure 104/47 Physical Exam: Revealed a 74-year-old female thrashing in bed, restless, agitated, hypotensive, on mechanical ventilation. HEENT:[Neck is supple.] [No neck masses.] [No thyromegaly.] [No JVD.] Chest: [Symmetrical chest expansion, diminished breath sounds at the bases no crackles or rhonchi or wheezes. Cardiac Exam: [Normal S1 and S2, no S3 gallop, 2/6 systolic murmur thought the precordium. Abdomen: [Soft, nontender, no megaly, no rebound, no guarding, normal bowel sounds.] Extremities: [No clubbing, no edema, no cyanosis.] Neurological Exam: Could not be fully assessed, patient is thrashing in bed, agitated, restless, not responding to any stimuli and the movements in her upper and lower extremities are on purposeful movements. Psychiatric: Could not be assessed. Skin: No rashes. Lymphatics: No cervical adenopathy. Results - Laboratory Findings CBC and BMP: 10/14/20 10:00 10/14/20 10:30 ABG ABG pH 7.35 (7.35-7.45) 10/14/20 14:24 ABG pCO2 41 mmHg (35-45) 10/14/20 14:24 ABG pO2 >400 mmHg (83-108) H 10/14/20 14:24 ABG O2 Saturation 98.8 % (94-97) H 10/14/20 14:24 Abnormal lab findings: Abnormal Labs 10/14/20 10/14/20 10:30 14:24 ABG pO2 >400 H ABG O2 Saturation 98.8 H Potassium 3.4 L Carbon Dioxide 31 H BUN 19 H - Diagnostic Findings Chest x-ray: image reviewed (Chest x-ray showed adequate placement of the e ndotracheal tube, and pleural parenchymal changes. Not much different from the chest x-ray done a few months ago) Additional studies: CT of the brain showed no evidence of acute hemorrhage, it did show however patchy low attenuation of the white matter based on remote ischemic changes most likely. Recommended MRI. CT angiogram report was noted and as noted in HPI. Assessment and Plan Assessment: Impression: High-grade innominate artery stenosis Intraoperative hypotension, exact etiology is not clear. Requiring fluid bolus es and pressors Acute hypoxic rest for his failure Possible CVA, post procedure below. Status post our aortogram with selective catheterization of the innominate artery History of multiple falls and recurrent episodes of syncope History of COPD Benign essential hypertension Dyslipidemia History of seizure disorder History of obstructive sleep apnea syndrome History of non-small cell lung cancer and previous right upper lobectomy followed by chemotherapy and radiation therapy History of Tierney esophagus History of migraine cephalgia. Recommendation: Continue ventilatory support Continue hemodynamic support Continue fluid boluses Neurological consultation, possible CVA. GI and DVT prophylaxis. Bronchodilators. We'll continue to follow in the ICU. Prognosis is definitely guarded. Time with Patient: Greater than 30
[2020-10-14] MEDS: SODIUM CHLORIDE 0.9% 1,000 ML IV SCH (17:10)
--- NOTE | 2020-10-14 17:29 | OP ---
OPERATIVE REPORT OPERATIVE REPORT: Placement of right femoral triple-lumen catheter. PREOPERATIVE DIAGNOSIS: Hypotension. POSTOPERATIVE DIAGNOSIS: Hypotension. ANESTHESIA USED: None deployed. PROCEDURE DESCRIPTION: The patient was placed in a supine position. The area of the right groin was prepped in a sterile fashion and drapes were applied. The right femoral vein was easily cannulated. A guidewire was placed. The area around the guidewire was dilated. Then a triple-lumen catheter was inserted over the guidewire and the guidewire was removed. Good blood flow was noted in the 3 different ports of the triple-lumen catheter. Line was secured using 3.0 silk sutures. MMODL / IJN: [id number] /
--- NOTE | 2020-10-14 17:29 | OP ---
OPERATIVE REPORT OPERATIVE REPORT: Placement of right brachial arterial line. PREOPERATIVE DIAGNOSIS: Hypotension. POSTOPERATIVE DIAGNOSIS: Hypotension. ANESTHESIA USED: None deployed. PROCEDURE DESCRIPTION: The patient was placed in a supine position. The right brachial area was prepared in a sterile fashion and drapes were applied. The right brachial artery was palpated, cannulated, and a guidewire was placed. A Cook's catheter was inserted over the guidewire, and the guidewire was removed. Good blood flow, good waveform noted. No evidence of any immediate complications. Line was secured using 3.0 silk sutures. MMODL / IJN: [id number] /
[2020-10-14] MEDS ORDERED: fentaNYL (PF) 1,000 MCG in SODIUM CHLORIDE 0.9% 80 ML IV SCH (17:30)
[2020-10-14] MEDS ORDERED: Potassium Replacement Protocol 1 EACH MISC MISCELLANE PRN (19:33)
--- NOTE | 2020-10-14 19:45 | P.CNNES ---
History of Present Illness Consult date: 10/14/20 Requesting physician: Concepción Galindo Reason for Consult: Neuro changes after undergoing angiogram, rule out CVA History of Present Illness: Patient is a 74-year-old female who has history of multiple syncopal episodes in the past. 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 She subsequently underwent arteriogram which demonstrated high-grade left subclavian artery stenosis near its origin, with subsequent subclavian steal syndrome as well as high-grade innominate artery stenosis. The subclavian artery stenosis was treated with balloon dilation and stenting. Since that time, patient indicates that her dizziness/syncopal types episodes have ceased. Patient came for percutaneous intervention treatment of innominate artery stenosis. Patient underwent procedure in the cardiac catheterization lab. The procedure could not be performed because of risk of dissection. At that point all catheters, wires and sheath were withdrawn. At this time patient became hypotensive, stopped responding and began convulsing. Patient still had strong femoral pulse. Patient was ventilated by Ambu bag. There was concern that the patient may head develops CVA. Stroke team was called 12:36 PM and patient was intubated by anesthesia, patient underwent CTA of neck and intracranial vessels as well as CT without contrast of the brain to evaluate for hemorrhage. Stroke neurologist recommended medical therapy and patient was transferred to ICU on mechanical ventilation. She was hypotensive upon arrival to the ICU requiring fluid boluses and norepinephrine drip. CT head showed no evidence of acute hemorrhage. Patchy low attenuation of the white matter is nonspecific but most likely on the basis of remote ischemia given appears similar to prior exam. If there is concern for acute ischemia correlate with MRI. CTA of head and neck showed no significant stenosis or aneurysm at the level of [place]. No significant change from prior MRA of [place]. New stent graft in the left subclavian artery. No new significant stenosis in the common or internal carotid arteries bilaterally. Tortuous course of the common carotid arteries bilaterally remains present. Chest x-ray showed pleural parenchymal changes are stable. ET tube present. Patient's blood test shows normal CBC, sodium 141 potassium 3.4, normal renal functions. Patient has been started on Brilinta 90 mg twice a day also on aspirin 81 mg daily and Lipitor 80 mg. At present patient is on propofol 30 g and fentanyl 1 g. Per nurse report, patient's blood pressure has been very labile, ranging between 70/40 to 90/70 at one time, and then goes up to 200/90 within a matter of 20 minutes. Patient becomes more restless, agitated and then becomes more somnolent sedated. Per nurse report, she is moving all 4 extremities. She does open eyes at times, fo llows commands, nods appropriately and makes eye contact. Patient's blood test shows normal CBC, PT/PTT. Blood test shows normal sodium, potassium 3.4, normal renal functions. Hemoglobin A1c 5.5 on 04/01/2020. Hepatic panel normal. Total cholesterol 138, LDL 69, HDL 51 and triglycerides 90. Review of Systems ROS unobtainable: due to endotracheal tube, due to mental status Past Medical History Past Medical History: Cancer, COPD, CVA/TIA, Eye Disorder, GERD/Reflux, Hyperlipidemia, Hypertension, Osteoarthritis (OA), Seizure Disorder, Sleep Apnea/CPAP/BIPAP, Syncope Additional Past Medical History / Comment(s): hx of lung cancer with upper right lobe removed & received chemo & radiation tx. Barretts esophagus, hiatal hernia, incont of urine wears depends, tia 15 yrs. ago-no residual effects,, migraines, no c-pap machine, DDD. , SOB with activity, episodes of passing out, ?seizures, osteopenia, detached retina right eye after cataract surg. Cont. to see shadows from her R eye. History of Any Multi-Drug Resistant Organisms: None Reported Past Surgical History: Bladder Surgery, Heart Catheterization, Heart Catheterization With Stent, Hysterectomy, Tonsillectomy Additional Past Surgical History / Comment(s): rectocele,cystocele(3 sx total has mesh patch), lasik eye sx, cyst removed lt breast-benign,blepharoplasty, sep 05 2015 upper lobe rt lung removed, cancerous lump removed from back of [id number] radiation tx. after, EPIDURAL pain procedure, loop recorder insertion, cataracts removed Past Anesthesia/Blood Transfusion Reactions: No Reported Reaction Date of Last Stent Placement:: 2019 Past Psychological History: Depression Additional Psychological History / Comment(s): SPOUSE MAY 2016 Smoking Status: Former smoker Past Alcohol Use History: Rare Additional Past Alcohol Use History / Comment(s): STARTED SMOKING AT AGE 14, SMOKED 2 PPD. QUIT SMOKING 1999, CBD oil to skin for pain @ times. Past Drug Use History: None Reported - Past Family History Father Family Medical History: Liver Disease Additional Family Medical History / Comment(s): CIRRHOIS OF THE LIVER Mother Family Medical History: Congestive Heart Failure (CHF) Additional Family Medical History / Comment(s): LUNG DISEASE, 02 DEPENDANT- SMOKED FROM AGE 13 TILL AGE 85. Medications and Allergies Home Medications Medication Instructions Recorded Confirmed Type Omeprazole [PriLOSEC] 20 mg PO BID 04/23/16 10/14/20 History Albuterol Sulfate [Ventolin HFA] 2 puff INHALATION RT-Q6H PRN 03/31/20 10/14/20 History Alendronate Sodium [Fosamax] 70 mg PO WE 03/31/20 10/14/20 History Difluprednate [Durezol] 1 drop RIGHT EYE BID 03/31/20 10/14/20 History Multivitamins, Thera [Multivitamin 1 tab PO DAILY 03/31/20 10/14/20 History (formulary)] Tiotropium Br/Olodaterol HCl 2 puff INHALATION RT-DAILY 03/31/20 10/14/20 History [Stiolto Respimat Inhal [place]] Aspirin 81 mg PO BID chew 04/02/20 10/14/20 Rx Atorvastatin [Lipitor] 80 mg PO HS 05/26/20 10/14/20 History Escitalopram [Lexapro] 10 mg PO HS 05/26/20 10/14/20 History Fludrocortisone [Florinef] 0.1 mg PO DAILY 05/26/20 10/14/20 History Ascorbic Acid [Vitamin C] 500 mg PO DAILY 10/10/20 10/14/20 History Clopidogrel [Plavix] 75 mg PO DAILY 10/10/20 10/14/20 History Zinc 50 mg PO DAILY 10/10/20 10/14/20 History Allergies Allergy/AdvReac Type Severity Reaction Status Date / Time adhesive tape Allergy Rash/Hives Verified 10/14/20 09:51 Physical Examination - Vital Signs Vital Signs: Vital Signs Temp Pulse Pulse Resp BP BP Pulse Ox 10/14/20 18:00 80 14 74/53 98 10/14/20 17:45 80 20 96/74 98 10/14/20 17:30 85 17 100/59 97 10/14/20 17:15 83 14 96/53 10/14/20 17:00 82 16 92/53 97 10/14/20 16:45 95 19 134/75 98 10/14/20 16:30 97 16 97 10/14/20 16:15 85 15 121/77 98 10/14/20 16:00 97.8 F 79 14 147/84 97 10/14/20 15:45 78 14 140/72 97 10/14/20 15:30 80 14 98/73 96 10/14/20 15:15 96 14 203/115 10/14/20 15:00 94 19 72/44 97 10/14/20 14:45 83 15 81/50 97 10/14/20 14:30 84 14 97/68 98 10/14/20 14:15 92 20 69/44 98 10/14/20 14:00 98.2 F 78 14 87/53 97 10/14/20 13:45 85 14 96/59 96 10/14/20 10:01 98.2 F 62 18 195/90 94 L Intake and Output 10/14/20 10/14/20 10/14/20 06:59 14:59 22:59 Intake Total 997.985 1959.776 Output Total 900 Balance 525.775 1571.776 Intake: IV 200 2040 Sodium Chloride 0.9% 1, 40 000 ml @ 20 mls/hr IV . Q24H JAMIE Rx#:[id number] Sodium Chloride 0.9% 1, 2000 000 ml @ 999 mls/hr IV . Q1H1M ONE Rx#:[id number] Intake, IV Titration 11. 72.776 Amount Clevidipine Butyrate 25 1.233 mg In Empty Bag 1 bag @ 1 MG/HR 2 mls/hr IV .Q24H JAMIE Rx#:[id number] Norepinephrine 32 mg In 5.816 Sodium Chloride 0.9% 218 ml @ 0.05 MCG/KG/MIN 1.46 mls/hr IV .Q24H JAMIE Rx#: [id number] propofoL 1,000 mg In 11.214 65.727 Empty Bag 1 bag @ Titrate IV .Q0M JAMIE Rx#: [id number] Output: Urine 900 Other: Voiding Method Indwelling Catheter Weight 62.3 kg 62.3 kg ABP, PAP, CO, CI - Last 8 Hours Arterial Blood Pressure 220/90 Arterial Blood Pressure 123/58 Arterial Blood Pressure 88/55 Arterial Blood Pressure 81/42 Arterial Blood Pressure 89/44 Arterial Blood Pressure 147/65 Arterial Blood Pressure 120/49 Arterial Blood Pressure 128/55 Arterial Blood Pressure 152/62 Arterial Blood Pressure 157/62 Arterial Blood Pressure 104/47 On examination patient is an elderly female, who is currently intubated, sedated with propofol 30 g and fentanyl 1 g. Examination is limited. Patient does open her eyes at times, and makes eye contact. Patient's right pupil is irregular, nonreactive from previous surgery. Left pupil is small, but reactive. Oculocephalic slightly present. Corneals present. Face and tongue could not be assessed. Patient did follow some commands like squ eezing hands and was equal. Patient was wiggling her both feet on plantar stimulation equally with some withdrawal. Reflexes are symmetric and Possible bilateral Babinski. Tone is equal bilaterally. Cerebellar functions could not be tested. Patient has right-sided carotid bruit, S1 and S2 audible. Abdomen soft. Results - Laboratory Findings CBC and BMP: 10/14/20 10:00 10/14/20 10:30 Abnormal Lab Findings: Abnormal Labs 10/14/20 10/14/20 10:30 14:24 ABG pO2 >400 H ABG O2 Saturation 98.8 H Potassium 3.4 L Carbon Dioxide 31 H BUN 19 H Assessment and Plan Assessment: * 74-year-old female admitted with elective intervention for innominate artery stenosis, at the end of the procedure developed acute mental status change, unresponsiveness and convulsion, requiring placement on mechanical ventilation. Patient developed significant labile blood pressure. Computed tomography scan of the head showed no acute process, and CTA of head and neck also showed no large vessel occlusion or thrombosis. Rule out CVA versus ence phalopathy versus syncope/seizure. Watershed ischemia is also a possibility due to hypotension. * History of BPPV * History of lung cancer * X tobacco use * Carotid bruit. Plan: * Patient has been started on Brilinta 90 mg twice a day, aspirin 81 mg and statins. * Possible extubation tomorrow, then we will proceed with more detailed neurological examination. * We will follow patient with you.
[2020-10-14] MEDS ORDERED: ATORVASTATIN 80 MG TAB PO SCH (21:00)
[2020-10-14] MEDS: CHLORHEXIDINE GLUCONATE 15 ML CUP MUCOUS MEM SCH (21:30)
[2020-10-14] MEDS: POTASSIUM BICARBONATE/CIT AC 20 MEQ TABLET.EFF NG-TUBE SCH (21:40)
[2020-10-14] MEDS: TICAGRELOR 90 MG TAB PO SCH (21:40)
[2020-10-15] MEDS: POTASSIUM BICARBONATE/CIT AC 20 MEQ TABLET.EFF NG-TUBE SCH (00:10)
[2020-10-15 05:12] LABS: Basophils # (A) 0.1 k/uL (0-0.2); Basophils % (A) 1 %; Eosinophils # (A) 0.1 k/uL (0-0.7); Eosinophils % (A) 1 %; HCT 31.7 % (34.0-46.0); Lymphocytes # (A) 1.6 k/uL (1.0-4.8); Lymphocytes % (A) 15 %; MCH 29.5 pg (25.0-35.0); MCHC 33.7 g/dL (31.0-37.0); MCV 87.5 fL (80.0-100.0); Mean Platelet Volume 7.3; Monocytes # (A) 0.6 k/uL (0-1.0); Monocytes % (A) 5 %; Neutrophils # (A) 7.9 k/uL (1.3-7.7); Neutrophils % (A) 77 %; Platelet Count 269 k/uL (150-450); RBC 3.62 m/uL (3.80-5.40); WBC 10.3 k/uL (3.8-10.6)
[2020-10-15 05:26] LABS: African American GFR (CKD) >90 (>60 ml/min/1.73 sqM); Anion Gap 4 mmol/L; Blood Urea Nitrogen 12 mg/dL (7-17); Calcium 7.7 mg/dL (8.4-10.2); Carbon Dioxide 26 mmol/L (22-30); Chloride 109 mmol/L (98-107); Glucose 135 mg/dL (74-99); HGB 10.7 gm/dL (11.4-16.0); Non-African American GFR(CKD) >90 (>60 ml/min/1.73 sqM); Potassium 3.3 mmol/L (3.5-5.1); Sodium 139 mmol/L (137-145)
[2020-10-15 05:32] LABS: ABG Base Excess 0.1 mmol/L; ABG HCO3 25 mmol/L (21-25); ABG Oxygen Saturation 98.3 % (94-97); ABG PCO2 39 mmHg (35-45); ABG PH 7.41 (7.35-7.45); ABG PO2 203 mmHg (83-108); ABG TCO2 26 mmol/L (19-24); Allen Test Performed? Yes
[2020-10-15] MEDS: POTASSIUM CHLORIDE 20 MEQ in WATER FOR INJECTION 1 100ML.BAG IVPB SCH ×2 (05:44→08:07)
[2020-10-15] MEDS: TICAGRELOR 90 MG TAB PO SCH ×2 (08:08→22:12)
[2020-10-15] MEDS: PANTOPRAZOLE 40 MG/10 ML VIAL IV SCH (08:08)
[2020-10-15] MEDS: ASPIRIN 81 MG PO SCH (08:08)
[2020-10-15] MEDS: CHLORHEXIDINE GLUCONATE 15 ML CUP MUCOUS MEM SCH (08:08)
--- NOTE | 2020-10-15 08:49 | XR ---
EXAMINATION TYPE: XR chest 1V portable DATE OF EXAM: 10/15/2020 COMPARISON: 10/14/2020 HISTORY: Respiratory failure TECHNIQUE: Single frontal view of the chest is obtained. FINDINGS: ET and NG tube noted. There is volume loss on the right with apical pleural thickening and right-sided consolidation with pleural effusion. Deviation from left to right of the mediastinum. Le ft lung is clear. Underlying COPD suspected. IMPRESSION: 1. Right-sided pleural-parenchymal changes are stable.
--- NOTE | 2020-10-15 12:07 | CDI ---
Documentation Clarification Form Date: 10/15/2020 11:52:42 AM From: Christina StapletonCALVIN rivera, CCDS Admit Date: 10/14/2020 02:39:00 PM Patient Name: Raqcuel Gill Visit Number: [id number] Discharge Date: ATTENTION: The Clinical Documentation Specialists (CDI) and [facility] Coding Staff appreciate your assistance in clarifying documentation. Please respond to the clarification below the line at the bottom and electronically sign. The CDI & [facility] Coding staff will review the response and follow-up if needed. Please note: Queries are made part of the Legal Health Record. If you have any questions, please contact the author of this message via ITS. Dr. Humberto Griggs: Per the 10/14 Pulmonary/Critical Care Consult: "Intraoperative hypotension, exact etiology is not clear. Requiring fluid boluses and pressors. Acute hypoxic respiratory failure." Patient history/risk factors: CAD w/coronary stent, Loop Recorder, COPD, Benign essential hypertension, Obstructive sleep apnea, Seizure Disorder, Non-small cell lung CA status post RUL Lobectomy, Chemotherapy & Radiation, Tierney's Esophagus, Migraines, Former smoker. Clinical Indicators: Presented 10/14 for elective Arch Aortogram with selective Catheterization of innominate artery for High grade innominate artery stenosis. Intra-operative note by Vascular Surgeon: "It was during this time the patient became hypotensive and appeared to suffer cerebrovascular accident. Stroke team was called. Anesthesia intubated the patient. Shortly thereafter the patient began to move all extremities and in an effort to obtain a computed tomography scan of her brain the patient was administered Propofol. The patient was taken to CAT scan. CTA of the neck and intracranial vessels were performed as well as a CT without contrast of the brain to evaluate for hemorrhage. I did speak with neuro-interventional who reviewed the films. They did not find any significant new issue and recommended medical therapy. Patient was transferred to the intensive care unit." Vitals on arrival to ICU: T 98.2, P 78, R 14 - 20, BP 96/59 - 69/44*, PO 97 vent. 10/14 CXR: Pleural-parenchymal changes stable. Treatment 10/14: IV fluid 1,000 mls @ 62.142 mls/hr q16, IV Apresoline, IV Epi 4 mg in 250 mls, IV Nimbex, IV propofol, IV Cleviprex, IV Morphine, IV Epi 250 mls @ 1.46 mls/hr q24, IV fluid 1,000 mls @ 999 mls/hr q1 x2, IV Fentanyl, IV Kcl. In your professional opinion, can you please specify the following: Hypovolemic Shock Cause Other Shock, please specify: Other, please specify Unable to determine (Last Revision: August 2017) MTDD
--- NOTE | 2020-10-15 12:29 | P.PN ---
Subjective Progress Note Date: 10/15/20 Principal diagnosis: High-grade innominate artery stenosis, mental status change Patient was seen and examined in the ICU. The patient came in yesterday for a scheduled outpatient angiogram for for innominate artery stenosis. The procedure could not be performed due to risk of dissection, all catheters, wires and sheaths were withdrawn and pressure was held on both puncture sites. At that time should became hypotensive and appeared to suffer possible CVA. Stroke team was called. Anesthesia intubated the patient and the patient was brought to the ICU. ALLERGY was placed on consult CT angiogram of head and neck showed no significant stenosis or aneurysm at level of ruby of [place]. No significant change from prior MRA ruby of [place]. There is new stent graft in the left subclavian artery. No new significant stenosis in the common or internal carotid arteries bilaterally. Tortuous course of the common carotid arteries bilaterally remains present. CT of brain showed no evidence of acute hemorrhage. Patchy low-attenuation the white matter is nonspecific but most likely on the basis of remote ischemia given appears similar to prior exam. The patient was currently sedated and intubated. She was responding to stimuli and moving bilateral upper extremities and opening eyes at times. She does not appear in any acute distress. She has had labile blood pressures. She's been on norepinephrine. There is discussion of possible extubation today. Objective - Vital Signs Vital signs: Vital Signs Temp 99.6 F 10/15/20 08:00 Pulse 68 10/15/20 08:00 Resp 55 H 10/15/20 08:00 BP 138/60 10/15/20 08:00 Pulse Ox 98 10/15/20 08:00 Intake & Output 10/14/20 10/15/20 10/15/20 18:59 06:59 18:59 Intake Total 2332.378 539.443 578.707 Output Total 900 545 55 Balance 1432.378 -5.557 523.707 Weight 62.3 kg 67.2 kg Intake: IV 2240 240 540 Potassium Chloride 20 meq 500 In Water For Injection 1 100ml.bag @ 50 mls/hr IVPB Q2H [facility] Rx#: [id number] Sodium Chloride 0.9% 1, 40 240 40 000 ml @ 20 mls/hr IV . Q24H [facility] Rx#:[id number] Sodium Chloride 0.9% 1, 2000 000 ml @ 999 mls/hr IV . Q1H1M [facility] Rx#:[id number] Intake, IV Titration 92.378 199.443 38.707 Amount Clevidipine Butyrate 25 1.233 mg In Empty Bag 1 bag @ 1 MG/HR 2 mls/hr IV .Q24H [facility] Rx#:[id number] Norepinephrine 32 mg In 6.935 27.745 Sodium Chloride 0.9% 218 ml @ 0.05 MCG/KG/MIN 1.46 mls/hr IV .Q24H [facility] Rx#: [id number] fentaNYL (PF) 1,000 mcg 3.219 In Sodium Chloride 0.9% 80 ml @ Per Protocol IV . Q0M [facility] Rx#:[id number] propofoL 1,000 mg In 80.991 171.698 38.707 Empty Bag 1 bag @ Titrate IV .Q0M [facility] Rx#: [id number] Oral 100 Output: Urine 900 545 55 Other: Voiding Method Indwelling Catheter Indwelling Catheter Indwelling Catheter ABP, PAP, CO, CI - Last Documented Arterial Blood Pressure 120/48 - Exam General appearance: Sedated and intubated. Appears in no acute distress. HET: Head is normocephalic and atraumatic. Neck: Supple without lymphadenopathy. Trachea midline. Heart: S1 S2. Regular rate and rhythm. Lungs: No crackles or wheezes are heard. Abdomen: Soft, nontender, nondistended. Extremities: Normal skin color and turgor. Palpable bilateral femoral pulses. Patient has a right femoral line and a right arterial line. Unable to palpate right radial pulse. Neurological: Sedated and intubated. - Labs CBC & Chem 7: 10/15/20 04:51 10/15/20 04:51 Labs: Abnormal Lab Results - Last 24 Hours (Table) 10/14/20 10/14/20 10/15/20 Range/Units 10:30 14:24 04:51 RBC 3.62 L (3.80-5.40) m/uL Hgb 10.7 L D (11.4-16.0) gm/dL Hct 31.7 L (34.0-46.0) % Neutrophils # 7.9 H (1.3-7.7) k/uL ABG pO2 >400 H (83-108) mmHg ABG Total CO2 (19-24) mmol/L ABG O2 Saturation 98.8 H (94-97) % Potassium 3.4 L (3.5-5.1) mmol/L Chloride (98-107) mmol/L Carbon Dioxide 31 H (22-30) mmol/L BUN 19 H (7-17) mg/dL Glucose (74-99) mg/dL Calcium (8.4-10.2) mg/dL 10/15/20 10/15/20 Range/Units 04:51 05:30 RBC (3.80-5.40) m/uL Hgb (11.4-16.0) gm/dL Hct (34.0-46.0) % Neutrophils # (1.3-7.7) k/uL ABG pO2 203 H (83-108) mmHg ABG Total CO2 26 H (19-24) mmol/L ABG O2 Saturation 98.3 H (94-97) % Potassium 3.3 L (3.5-5.1) mmol/L Chloride 109 H (98-107) mmol/L Carbon Dioxide (22-30) mmol/L BUN (7-17) mg/dL Glucose 135 H (74-99) mg/dL Calcium 7.7 L (8.4-10.2) mg/dL Microbiology - Last 24 Hours (Table) 10/15/20 00:21 Sputum Culture - Preliminary Sputum Assessment and Plan Assessment: 1. Innominate artery stenosis, status post angiogram 2. Mental status change, unresponsiveness 3. History of benign positional vertigo 4. Hypertension 5. Hyperlipidemia 6. Syncope 7. History of lung cancer 8. History of tobacco use Plan: Supportive care Continue ICU management Neurology consult ordered, appreciate recommendations Patient to start Brilinta, aspirin, and atorvastatin No further vascular surgical interventions at this time We will continue to follow The impression and plan of care has been dictated as directed. I performed a history and examination of this patient, discussed the same with the dictator. I agree with the dictator's note ,documented as a scribe. Any additional findings or plans will be noted.
[2020-10-15] MEDS ORDERED: ALBUTEROL NEBULIZED 2.5 MG/3 ML INHALATION PRN (13:32)
--- NOTE | 2020-10-15 13:59 | P.PN ---
Subjective Progress Note Date: 10/15/20 Principal diagnosis: Acute hypoxic respiratory failure secondary to hypotension, most likely neurogenic shock This is a 74-year-old female with history of multiple syncopal episodes. 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 Patient was admitted for percutaneous intervention to relieve the innominate artery stenosis. Patient had the procedure in the cardiac catheterization lab, beginning the procedure, the patient became hypotensive and there was a concern that the patient may have severed CVA. Stroke team was called, patient was intubated by anesthesia, patient underwent CTA of the neck and intracranial vessels as well as CT without contrast of the brain to evaluate for hemorrhage. The neuro interventional team recommended mostly medical therapy patient was transferred to the ICU on mechanical ventilation, and she was hypotensive upon arrival to the ICU requiring fluid boluses and norepinephrine drip. As soon as the patient arrived to the ICU, I placed a right femoral triple-lumen catheter, and a right brachial arterial line. Pressure was noted to be low, more fluid boluses were given, and norepinephrine drip was started. Attempted to place a right IJ triple-lumen catheter, however I could not insert the guidewire. No further attempts were made, then the right femoral vein was cannulated easily and a triple-lumen catheter was placed. Norepinephrine was started for low blood pressure. Her ventilator settings were reviewed, her ABG showed a pO2 of over 400 pCO2 of 41 pH of 7.35. Hence her FiO2 was decreased down to 50%, and no changes were made in her present ventilator settings. Patient is now on assist control rate of 14 volume is 450 FiO2 50% and PEEP of 5 Patient was reevaluated today on 10/15/20, patient remains in the ICU, intubated and mechanically ventilated. She is on assist control rate of 14 volume is 450 FiO2 is 40% and PEEP of 5. ABG showed a pO2 of 2 or 3 pCO2 of 39 pH of 7.40. Patient remains on norepinephrine and 0.08 mcg/kg/m, she is also on propofol which I have discontinued after my evaluation. And her IV fluid at that 30 mL per hour. Patient is restless, agitated easily, but at times she seems to be following instructions, and her blood pressure remains labile. At times her bl ood pressure is extremely high, and at times is quite low, and I believe this is neurogenic in nature. Chest x-ray showed chronic changes in the right upper lobe, no acute process was noted. After evaluating the patient, I recommended a short course of pressure support and CPAP, and if the patient seems to tolerate that, I may proceed to extubating the patient. I will also recommend a repeat C T of the brain for follow-up on her last CT which questioned watershed areas, questionable hypoperfusion to the brain during her vascular procedure Objective - Vital Signs Vital signs: Vital Signs Temp 99.3 F 10/15/20 12:00 Pulse 79 10/15/20 13:00 Resp 15 10/15/20 13:00 BP 143/70 10/15/20 13:00 Pulse Ox 97 10/15/20 13:00 Intake & Output 10/14/20 10/15/20 10/15/20 18:59 06:59 18:59 Intake Total 2332.378 539.443 678.707 Output Total 900 545 205 Balance 1432.378 -5.557 473.707 Weight 62.3 kg 67.2 kg Intake: IV 2240 240 640 Potassium Chloride 20 meq 500 In Water For Injection 1 100ml.bag @ 50 mls/hr IVPB Q2H [facility] Rx#: [id number] Sodium Chloride 0.9% 1, 40 240 140 000 ml @ 20 mls/hr IV . Q24H [facility] Rx#:[id number] Sodium Chloride 0.9% 1, 2000 000 ml @ 999 mls/hr IV . Q1H1M [facility] Rx#:[id number] Intake, IV Titration 92.378 199.443 38.707 Amount Clevidipine Butyrate 25 1.233 mg In Empty Bag 1 bag @ 1 MG/HR 2 mls/hr IV .Q24H [facility] Rx#:[id number] Norepinephrine 32 mg In 6.935 27.745 Sodium Chloride 0.9% 218 ml @ 0.05 MCG/KG/MIN 1.46 mls/hr IV .Q24H [facility] Rx#: [id number] fentaNYL (PF) 1,000 mcg 3.219 In Sodium Chloride 0.9% 80 ml @ Per Protocol IV . Q0M [facility] Rx#:[id number] propofoL 1,000 mg In 80.991 171.698 38.707 Empty Bag 1 bag @ Titrate IV .Q0M [facility] Rx#: [id number] Oral 100 Output: Urine 900 545 205 Other: Voiding Method Indwelling Catheter Indwelling Catheter Indwelling Catheter ABP, PAP, CO, CI - Last Documented Arterial Blood Pressure 141/61 - Exam Physical Exam: Revealed a 74-year-old female on mechanical ventilation, agitated and restless HEENT:[Neck is supple.] [No neck masses.] [No thyromegaly.] [No JVD.] Chest: [Symmetrical chest expansion, diminished breath sounds at the bases no crackles or rhonchi or wheezes. Cardiac Exam: [Normal S1 and S2, no S3 gallop, 2/6 systolic murmur thought the precordium. Abdomen: [Soft, nontender, no megaly, no rebound, no guarding, normal bowel sounds.] Extremities: [No clubbing, no edema, no cyanosis.] Neurological Exam: Patient seems agitated easily, however comprehends and follows simple instructions intermittently. Psychiatric: Blunted mood and affect, unable to fully assess mental status Skin: No rashes. Lymphatics: No cervical adenopathy. - Labs CBC & Chem 7: 10/15/20 04:51 10/15/20 04:51 Labs: Abnormal Lab Results - Last 24 Hours (Table) 10/14/20 10/15/20 10/15/20 Range/Units 14:24 04:51 04:51 RBC 3.62 L (3.80-5.40) m/uL Hgb 10.7 L D (11.4-16.0) gm/dL Hct 31.7 L (34.0-46.0) % Neutrophils # 7.9 H (1.3-7.7) k/uL ABG pO2 >400 H (83-108) mmHg ABG Total CO2 (19-24) mmol/L ABG O2 Saturation 98.8 H (94-97) % Potassium 3.3 L (3.5-5.1) mmol/L Chloride 109 H (98-107) mmol/L Glucose 135 H (74-99) mg/dL Calcium 7.7 L (8.4-10.2) mg/dL 10/15/20 Range/Units 05:30 RBC (3.80-5.40) m/uL Hgb (11.4-16.0) gm/dL Hct (34.0-46.0) % Neutrophils # (1.3-7.7) k/uL ABG pO2 203 H (83-108) mmHg ABG Total CO2 26 H (19-24) mmol/L ABG O2 Saturation 98.3 H (94-97) % Potassium (3.5-5.1) mmol/L Chloride (98-107) mmol/L Glucose (74-99) mg/dL Calcium (8.4-10.2) mg/dL Microbiology - Last 24 Hours (Table) 10/15/20 00:21 Sputum Culture - Preliminary Sputum Assessment and Plan Assessment: Impression: High-grade innominate artery stenosis Intraoperative hypotension, this is most likely a neurogenic shock picture. Acute hypoxic respiratory failure secondary to hypotension/neurogenic shock. Possible CVA, post procedure below. Status post our aortogram with selective catheterization of the innominate artery History of multiple falls and recurrent episodes of syncope History of COPD Benign essential hypertension Dyslipidemia History of seizure disorder History of obstructive sleep apnea syndrome History of non-small cell lung cancer and previous right upper lobectomy followed by chemotherapy and radiation therapy History of Tierney esophagus History of migraine cephalgia. Recommendation: Continue ventilatory support Continue hemodynamic support IV fluid to KVO. Repeat CT of the brain. Without contrast. GI and DVT prophylaxis. Continue bronchodilators. We will assess for potential weaning today by using pressure support and CPAP, and if tolerated I will likely extubate the patient today. Overall prognosis remains guarded, patient remains critically ill, we will maintain in the ICU even if extubated today. Critical care time is over 30 minutes. Time with Patient: Greater than 30
--- NOTE | 2020-10-15 14:16 | P.PN ---
Subjective Progress Note Date: 10/15/20 Patient was seen for a follow-up, in the ICU. Patient has been extubated earlier today. Patient is laying comfortably in the bed. Denies headache. Denies any numbness tingling or focal weakness. Mentation appears normal as below. Objective - Vital Signs Vital signs: Vital Signs Temp 99.3 F 10/15/20 12:00 Pulse 79 10/15/20 13:00 Resp 15 10/15/20 13:00 BP 143/70 10/15/20 13:00 Pulse Ox 97 10/15/20 13:00 Intake & Output 10/14/20 10/15/20 10/15/20 18:59 06:59 18:59 Intake Total 2332.378 539.443 678.707 Output Total 900 545 205 Balance 1432.378 -5.557 473.707 Weight 62.3 kg 67.2 kg Intake: IV 2240 240 640 Potassium Chloride 20 meq 500 In Water For Injection 1 100ml.bag @ 50 mls/hr IVPB Q2H [facility] Rx#: [id number] Sodium Chloride 0.9% 1, 40 240 140 000 ml @ 20 mls/hr IV . Q24H [facility] Rx#:[id number] Sodium Chloride 0.9% 1, 2000 000 ml @ 999 mls/hr IV . Q1H1M [facility] Rx#:[id number] Intake, IV Titration 92.378 199.443 38.707 Amount Clevidipine Butyrate 25 1.233 mg In Empty Bag 1 bag @ 1 MG/HR 2 mls/hr IV .Q24H [facility] Rx#:[id number] Norepinephrine 32 mg In 6.935 27.745 Sodium Chloride 0.9% 218 ml @ 0.05 MCG/KG/MIN 1.46 mls/hr IV .Q24H [facility] Rx#: [id number] fentaNYL (PF) 1,000 mcg 3.219 In Sodium Chloride 0.9% 80 ml @ Per Protocol IV . Q0M [facility] Rx#:[id number] propofoL 1,000 mg In 80.991 171.698 38.707 Empty Bag 1 bag @ Titrate IV .Q0M [facility] Rx#: [id number] Oral 100 Output: Urine 900 545 205 Other: Voiding Method Indwelling Catheter Indwelling Catheter Indwelling Catheter ABP, PAP, CO, CI - Last Documented Arterial Blood Pressure 141/61 - Exam On examination patient is an elderly female, in no distress. Patient is alert and awake. Her speech and language functions are completely normal. She can name, repeat very well. Patient is fairly well oriented. On cranial nerve examination pupils are round and reacting, visual freeman are full on confrontation, extraocular muscles are intact. Face is symmetric, tongue protrudes to the midline. Palatal elevation and sensation normal. On muscle strength testing there is no pronator drift and the strength is normal in arms and legs reflexes are 1+ and plantars downgoing. Sensory touch is equal. No ataxia. Tone and bulk of muscles normal. Gait deferred. - Labs CBC & Chem 7: 10/15/20 04:51 10/15/20 04:51 Labs: Abnormal Lab Results - Last 24 Hours (Table) 10/14/20 10/15/20 10/15/20 Range/Units 14:24 04:51 04:51 RBC 3.62 L (3.80-5.40) m/uL Hgb 10.7 L D (11.4-16.0) gm/dL Hct 31.7 L (34.0-46.0) % Neutrophils # 7.9 H (1.3-7.7) k/uL ABG pO2 >400 H (83-108) mmHg ABG Total CO2 (19-24) mmol/L ABG O2 Saturation 98.8 H (94-97) % Potassium 3.3 L (3.5-5.1) mmol/L Chloride 109 H (98-107) mmol/L Glucose 135 H (74-99) mg/dL Calcium 7.7 L (8.4-10.2) mg/dL 10/15/20 Range/Units 05:30 RBC (3.80-5.40) m/uL Hgb (11.4-16.0) gm/dL Hct (34.0-46.0) % Neutrophils # (1.3-7.7) k/uL ABG pO2 203 H (83-108) mmHg ABG Total CO2 26 H (19-24) mmol/L ABG O2 Saturation 98.3 H (94-97) % Potassium (3.5-5.1) mmol/L Chloride (98-107) mmol/L Glucose (74-99) mg/dL Calcium (8.4-10.2) mg/dL Microbiology - Last 24 Hours (Table) 10/15/20 00:21 Sputum Culture - Preliminary Sputum Assessment and Plan Assessment: * 74-year-old female admitted with elective intervention for innominate artery stenosis, at the end of the procedure developed acute mental status change, unresponsiveness and convulsion, requiring placement on mechanical ventilation. Patient developed significant labile blood pressure. Computed tomography scan of the head showed no acute process, and CTA of head and neck also showed no large vessel occlusion or thrombosis. Current neurological examination is normal. No clinical evidence of CVA. * History of BPPV * History of lung cancer * X tobacco use * Carotid bruit. Plan: * Continue Brilinta 90 mg twice a day, aspirin 81 mg and statins. * Patient is status post extubation. Patient's mentation is normal, and exam is nonfocal. Patient will undergo repeat computed tomography scan of the head to rule out any evolving CVA not seen on initial CAT scan. * Neurologically clear, as above computed tomography scan of head normal. * Follow-up with vascular surgery regarding innominate artery stenosis, likely will need medical management.
[2020-10-15] MEDS ORDERED: ACETAMINOPHEN TAB 500 MG TAB PO PRN (14:29)
--- NOTE | 2020-10-15 14:32 | CT ---
EXAMINATION TYPE: CT brain wo con DATE OF EXAM: 10/15/2020 COMPARISON: 10/14/2020 HISTORY: altered mental status CT DLP: 1068.4 mGycm Automated exposure control for dose reduction was used. FINDINGS: There is no evidence of acute hemorrhage or midline shift. Vasculature somewhat hyperdense likely rel ated the patient having been immediately post angiogram. There is patchy periventricular white matter areas of low attenuation. Postsurgical change involving the right orbit. Nasal septal deviation note d. No significant changes of sinusitis. Craniocervical junction maintained. Focal low attenuation in the right basal ganglia likely in the basis of remote lacunar infarct. IMPRESSION: Degenerative and nonspecific white matter changes similar to the prior exam and nonspecif ic. If there is concern for acute ischemia correlate with MRI as clinically warranted.
--- NOTE | 2020-10-15 14:38 | P.CONS ---
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 Urine before the procedure patient became hypotensive and unresponsive subsequently intubated patient started having seizures after she became unresponsive. Patient had a CT of the head which did not show any intracranial hemorrhage patient was transferred to [facility] started on mechanical ventilation patient was hypotensive requiring fluid boluses and the norepinephrine. Patient is on calcium sunblocker which was discontinued. Patient has left femoral central line. Patient is presently extubated. Patient is bit tired. Patient is on nasal cannula oxygen. Patient is presently and urine antiplatelet therapy. Patient appears to have a transient anoxia secondary to subclavian steal leading to seizures we leading to acute hypoxic respiratory failure. Review of Systems REVIEW OF SYSTEMS: CONSTITUTIONAL: No fever, no malaise, no fatigue. HEENT: No recent visual problems or hearing problems. Denied any sore throat. CARDIOVASCULAR: No chest pain, orthopnea, PND, no palpitations, no syncope. PULMONARY: No shortness of breath, no cough, no hemoptysis. GASTROINTESTINAL: No diarrhea, no nausea, no vomiting, no abdominal pain. NEUROLOGICAL: No headaches, no weakness, no numbness. HEMATOLOGICAL: Denies any bleeding or petechiae. GENITOURINARY: Denies any burning micturition, frequency, or urgency. MUSCULOSKELETAL/RHEUMATOLOGICAL: Denies any joint pain, swelling, or any muscle pain. ENDOCRINE: Denies any polyuria or polydipsia. The rest of the 14-point review of systems is negative. Past Medical History Past Medical History: Cancer, COPD, CVA/TIA, Eye Disorder, GERD/Reflux, Hyperlipidemia, Hypertension, Osteoarthritis (OA), Seizure Disorder, Sleep Apnea/CPAP/BIPAP, Syncope Additional Past Medical History / Comment(s): hx of lung cancer with upper right lobe removed & received chemo & radiation tx. Barretts esophagus, hiatal hernia, incont of urine wears depends, tia 15 yrs. ago-no residual effects,, migraines, no c-pap machine, DDD. , SOB with activity, episodes of passing out, ?seizures, osteopenia, detached retina right eye after cataract surg. Cont. to see shadows from her R eye. History of Any Multi-Drug Resistant Organisms: None Reported Past Surgical History: Bladder Surgery, Heart Catheterization, Heart Catheterization With Stent, Hysterectomy, Tonsillectomy Additional Past Surgical History / Comment(s): rectocele,cystocele(3 sx total has mesh patch), lasik eye sx, cyst removed lt breast-benign,blepharoplasty, sep 05 2015 upper lobe rt lung removed, cancerous lump removed from back of [id number] radiation tx. after, EPIDURAL pain procedure, loop recorder insertion, cataracts removed Past Anesthesia/Blood Transfusion Reactions: No Reported Reaction Date of Last Stent Placement:: 2019 Past Psychological History: Depression Additional Psychological History / Comment(s): SPOUSE MAY 2016 Smoking Status: Former smoker Past Alcohol Use History: Rare Additional Past Alcohol Use History / Comment(s): STARTED SMOKING AT AGE 14, SMOKED 2 PPD. QUIT SMOKING 1999, CBD oil to skin for pain @ times. Past Drug Use History: None Reported - Past Family History Father Family Medical History: Liver Disease Additional Family Medical History / Comment(s): CIRRHOIS OF THE LIVER Mother Family Medical History: Congestive Heart Failure (CHF) Additional Family Medical History / Comment(s): LUNG DISEASE, 02 DEPENDANT- SMOKED FROM AGE 13 TILL AGE 85. Medications and Allergies Home Medications Medication Instructions Recorded Confirmed Type Omeprazole [PriLOSEC] 20 mg PO BID 04/23/16 10/14/20 History Albuterol Sulfate [Ventolin HFA] 2 puff INHALATION RT-Q6H PRN 03/31/20 10/14/20 History Alendronate Sodium [Fosamax] 70 mg PO WE 03/31/20 10/14/20 History Difluprednate [Durezol] 1 drop RIGHT EYE BID 03/31/20 10/14/20 History Multivitamins, Thera [Multivitamin 1 tab PO DAILY 03/31/20 10/14/20 History (formulary)] Tiotropium Br/Olodaterol HCl 2 puff INHALATION RT-DAILY 03/31/20 10/14/20 History [Stiolto Respimat Inhal [place]] Aspirin 81 mg PO BID chew 04/02/20 10/14/20 Rx Atorvastatin [Lipitor] 80 mg PO HS 05/26/20 10/14/20 History Escitalopram [Lexapro] 10 mg PO HS 05/26/20 10/14/20 History Fludrocortisone [Florinef] 0.1 mg PO DAILY 05/26/20 10/14/20 History Ascorbic Acid [Vitamin C] 500 mg PO DAILY 10/10/20 10/14/20 History Clopidogrel [Plavix] 75 mg PO DAILY 10/10/20 10/14/20 History Zinc 50 mg PO DAILY 10/10/20 10/14/20 History Allergies Allergy/AdvReac Type Severity Reaction Status Date / Time adhesive tape Allergy Rash/Hives Verified 10/14/20 09:51 Physical Exam Vitals: Vital Signs Temp Pulse Resp BP Pulse Ox 10/15/20 14:00 79 16 104/53 98 10/15/20 13:00 79 15 143/70 97 10/15/20 12:00 99.3 F 85 16 144/69 97 10/15/20 11:00 68 16 122/55 96 10/15/20 10:00 80 16 99/56 97 10/15/20 09:00 69 14 103/39 97 10/15/20 08:00 99.6 F 68 55 H 138/60 98 10/15/20 07:00 67 0 L 136/57 98 10/15/20 06:00 63 14 115/52 98 10/15/20 05:00 67 14 127/59 99 10/15/20 04:00 99.4 F 73 14 168/90 98 10/15/20 03:00 76 15 77/41 98 10/15/20 02:00 65 14 131/62 98 10/15/20 01:00 66 14 104/52 10/15/20 00:00 99.5 F 66 14 134/65 10/14/20 23:00 65 14 142/68 98 10/14/20 22:00 66 14 127/65 98 10/14/20 21:00 68 14 141/68 98 10/14/20 20:00 99.2 F 76 14 149/75 98 10/14/20 19:00 80 14 172/83 98 10/14/20 18:45 87 18 172/83 99 10/14/20 18:30 79 18 98 10/14/20 18:15 76 14 209/94 98 10/14/20 18:00 80 14 74/53 98 10/14/20 17:45 80 20 96/74 98 10/14/20 17:30 85 17 100/59 97 10/14/20 17:15 83 14 96/53 10/14/20 17:00 82 16 92/53 97 10/14/20 16:45 95 19 134/75 98 10/14/20 16:30 97 16 97 10/14/20 16:15 85 15 121/77 98 10/14/20 16:00 97.8 F 79 14 147/84 97 10/14/20 15:45 78 14 140/72 97 10/14/20 15:30 80 14 98/73 96 10/14/20 15:15 96 14 203/115 10/14/20 15:00 94 19 72/44 97 10/14/20 14:45 83 15 81/50 97 Intake and Output 10/14/20 10/15/20 10/15/20 22:59 06:59 14:59 Intake Total 2354.528 306.079 698.707 Output Total 1160 285 555 Balance 1194.528 21.079 143.707 Intake: IV 2120 160 660 Potassium Chloride 20 meq 500 In Water For Injection 1 100ml.bag @ 50 mls/hr IVPB Q2H [facility] Rx#: [id number] Sodium Chloride 0.9% 1, 120 160 160 000 ml @ 20 mls/hr IV . Q24H [facility] Rx#:[id number] Sodium Chloride 0.9% 1, 2000 000 ml @ 999 mls/hr IV . Q1H1M [facility] Rx#:[id number] Intake, IV Titration 134.528 146.079 38.707 Amount Clevidipine Butyrate 25 1.233 mg In Empty Bag 1 bag @ 1 MG/HR 2 mls/hr IV .Q24H [facility] Rx#:[id number] Norepinephrine 32 mg In 13.450 21.230 Sodium Chloride 0.9% 218 ml @ 0.05 MCG/KG/MIN 1.46 mls/hr IV .Q24H [facility] Rx#: [id number] fentaNYL (PF) 1,000 mcg 3.219 In Sodium Chloride 0.9% 80 ml @ Per Protocol IV . Q0M [facility] Rx#:[id number] propofoL 1,000 mg In 116.626 124.849 38.707 Empty Bag 1 bag @ Titrate IV .Q0M [facility] Rx#: [id number] Oral 100 Output: Urine 1160 285 555 Other: Voiding Method Indwelling Catheter Indwelling Catheter Indwelling Catheter Weight 62.3 kg 67.2 kg ABP, PAP, CO, CI - Last 8 Hours Arterial Blood Pressure 141/61 Arterial Blood Pressure 83/42 Arterial Blood Pressure 131/61 Arterial Blood Pressure 94/46 Arterial Blood Pressure 85/37 Arterial Blood Pressure 120/48 Arterial Blood Pressure 125/50 PHYSICAL EXAMINATION: GENERAL: The patient is alert and oriented x3, not in any acute distress. Well developed, well nourished. HEENT: Pupils are round and equally reacting to light. EOMI. No scleral icterus. No conjunctival pallor. Normocephalic, atraumatic. No pharyngeal erythema. No thyromegaly. CARDIOVASCULAR: S1 and S2 present. No murmurs, rubs, or gallops. PULMONARY: Chest is clear to auscultation, no wheezing or crackles. ABDOMEN: Soft, nontender, nondistended, normoactive bowel sounds. No palpable organomegaly. MUSCULOSKELETAL: No joint swelling or deformity. EXTREMITIES: No cyanosis, clubbing, or pedal edema. NEUROLOGICAL: Gross neurological examination did not reveal any focal deficits. SKIN: No rashes. Results CBC & Chem 7: 10/15/20 04:51 10/15/20 04:51 Labs: Abnormal Lab Results - Last 24 Hours (Table) 10/15/20 10/15/20 10/15/20 Range/Units 04:51 04:51 05:30 RBC 3.62 L (3.80-5.40) m/uL Hgb 10.7 L D (11.4-16.0) gm/dL Hct 31.7 L (34.0-46.0) % Neutrophils # 7.9 H (1.3-7.7) k/uL ABG pO2 203 H (83-108) mmHg ABG Total CO2 26 H (19-24) mmol/L ABG O2 Saturation 98.3 H (94-97) % Potassium 3.3 L (3.5-5.1) mmol/L Chloride 109 H (98-107) mmol/L Glucose 135 H (74-99) mg/dL Calcium 7.7 L (8.4-10.2) mg/dL Microbiology - Last 24 Hours (Table) 10/15/20 00:21 Gram Stain - Preliminary Sputum Sputum Culture - Preliminary Assessment and Plan Plan: -Acute hypoxic respiratory failure secondary to hypotension neurogenic shock: Patient is presently extubated -An episode of unresponsiveness leading to seizures secondary to transient anoxia from a possible subclavian steal syndrome. -High-grade stenosis of innominate for which patient will undergo surgical intervention. Patient is presently in a dual antiplatelet therapy which will be continued -History of syncope which was believed to be secondary to subclavian steal -COPD without any acute exacerbation -Essential hypertension -Hyperlipidemia -Obstructive sleep apnea -Non-small cell lung cancer with previous lobectomy followed by chemotherapy and radiation in the past. -DVT prophylaxis: As per primary service
[2020-10-15] MEDS: CLEVIDIPINE BUTYRATE 25 MG in EMPTY BAG 1 BAG IV SCH (19:37)
[2020-10-15] MEDS: SODIUM CHLORIDE 0.9% 1,000 ML IV SCH (19:37)
[2020-10-15] MEDS ORDERED: POTASSIUM CHLORIDE 20 MEQ in WATER FOR INJECTION 1 100ML.BAG IVPB SCH (20:00)
[2020-10-15] MEDS ORDERED: NON FORMULARY DRUG (Omeprazole 20 MG Capsule.Dr) PO SCH (21:00)
[2020-10-15] MEDS: ATORVASTATIN 80 MG TAB PO SCH (22:12)
[2020-10-15] MEDS: DIFLUPREDNATE RIGHT EYE SCH (22:13)
[2020-10-15] MEDS: ESCITALOPRAM 10 MG TAB PO SCH (22:13)
[2020-10-16 05:32] LABS: Basophils % (A) 1 %; Eosinophils # (A) 0.2 k/uL (0-0.7); Eosinophils % (A) 2 %; HCT 29.9 % (34.0-46.0); Lymphocytes # (A) 1.1 k/uL (1.0-4.8); Lymphocytes % (A) 16 %; MCH 29.5 pg (25.0-35.0); MCHC 33.6 g/dL (31.0-37.0); Mean Platelet Volume 7.5; Monocytes # (A) 0.4 k/uL (0-1.0); Monocytes % (A) 5 %; Neutrophils # (A) 5.3 k/uL (1.3-7.7); Neutrophils % (A) 75 %; Platelet Count 184 k/uL (150-450); WBC 7.1 k/uL (3.8-10.6)
[2020-10-16 05:43] LABS: African American GFR (CKD) >90 (>60 ml/min/1.73 sqM); Anion Gap 3 mmol/L; Blood Urea Nitrogen 7 mg/dL (7-17); Calcium 7.9 mg/dL (8.4-10.2); Carbon Dioxide 26 mmol/L (22-30); Chloride 107 mmol/L (98-107); Glucose 83 mg/dL (74-99); Non-African American GFR(CKD) >90 (>60 ml/min/1.73 sqM); Potassium 3.4 mmol/L (3.5-5.1); Sodium 136 mmol/L (137-145)
[2020-10-16] MEDS: POTASSIUM CHLORIDE ER 20 MEQ TAB.ER PO SCH ×2 (07:30→08:42)
[2020-10-16] MEDS: MULTIVITAMINS, THERA 1 EACH TAB PO SCH (08:42)
[2020-10-16] MEDS: TICAGRELOR 90 MG TAB PO SCH ×2 (08:42→20:52)
[2020-10-16] MEDS: ASPIRIN 81 MG PO SCH (08:42)
[2020-10-16] MEDS: ASCORBIC ACID 500 MG TAB PO SCH (08:42)
--- NOTE | 2020-10-16 09:05 | XR ---
EXAMINATION TYPE: XR chest 1V portable DATE OF EXAM: 10/16/2020 COMPARISON: 10/15/2020 HISTORY: Tube placement TECHNIQUE: Single frontal view of the chest is obtained. FINDINGS: ET and NG tube have been removed. There is volume loss on the right with mediastinal shift from [id number]. There is a lower lobe and upper lobe consolidation with small effusion. Underlyi ng COPD in the left is noted and there is a vascular stent seen overlying the left medial lung apex. Correlate for chronic interstitial lung disease. IMPRESSION: 1. Right-sided pleural-parenchymal changes mildly progressed.
--- NOTE | 2020-10-16 11:33 | P.PN ---
Subjective Progress Note Date: 10/16/20 Principal diagnosis: High-grade innominate artery stenosis, mental status change Patient was seen and examined in the ICU. She was extubated yesterday evening. She is alert and oriented 3. She is showing no signs of any focal deficits. Blood pressure has been stable. Levophed was discontinued. She denies any pain. Allen catheter remains intact. Objective - Vital Signs Vital signs: Vital Signs Temp 98.3 F 10/16/20 04:00 Pulse 85 10/16/20 06:00 Resp 16 10/16/20 06:00 BP 118/67 10/16/20 06:00 Pulse Ox 95 10/16/20 06:00 Intake & Output 10/15/20 10/16/20 10/16/20 18:59 06:59 18:59 Intake Total 919.925 257.982 Output Total 690 910 Balance 229.925 -652.018 Intake: IV 740 240 Potassium Chloride 20 meq 500 In Water For Injection 1 100ml.bag @ 50 mls/hr IVPB Q2H [facility] Rx#: [id number] Sodium Chloride 0.9% 1, 240 240 000 ml @ 20 mls/hr IV . Q24H [facility] Rx#:[id number] Intake, IV Titration 179.925 17.982 Amount Norepinephrine 32 mg In 44.437 17.982 Sodium Chloride 0.9% 218 ml @ 0.05 MCG/KG/MIN 1.46 mls/hr IV .Q24H [facility] Rx#: [id number] fentaNYL (PF) 1,000 mcg 96.781 In Sodium Chloride 0.9% 80 ml @ Per Protocol IV . Q0M [facility] Rx#:[id number] propofoL 1,000 mg In 38.707 Empty Bag 1 bag @ Titrate IV .Q0M [facility] Rx#: [id number] Output: Urine 690 910 Other: Voiding Method Indwelling Catheter Indwelling Catheter ABP, PAP, CO, CI - Last Documented Arterial Blood Pressure 108/51 - Exam General appearance: Alert and oriented 3. Appears in no acute distress. HET: Head is normocephalic and atraumatic. Neck: Supple without lymphadenopathy. Trachea midline. Heart: S1 S2. Regular rate and rhythm. Lungs: No crackles or wheezes are heard. Abdomen: Soft, nontender, nondistended. Extremities: Normal skin color and turgor. Palpable bilateral femoral pulses. Patient has a right femoral line and a right arterial line. Neurological: No focal deficits. Alert and oriented 3. Able to move bilateral upper extremities. Able to move bilateral lower extremities. - Labs CBC & Chem 7: 10/16/20 05:20 10/16/20 05:20 Labs: Abnormal Lab Results - Last 24 Hours (Table) 10/16/20 10/16/20 Range/Units 05:20 05:20 RBC 3.40 L (3.80-5.40) m/uL Hgb 10.0 L (11.4-16.0) gm/dL Hct 29.9 L (34.0-46.0) % Sodium 136 L (137-145) mmol/L Potassium 3.4 L (3.5-5.1) mmol/L Creatinine 0.47 L (0.52-1.04) mg/dL Calcium 7.9 L (8.4-10.2) mg/dL Microbiology - Last 24 Hours (Table) 10/15/20 00:21 Gram Stain - Preliminary Sputum Sputum Culture - Preliminary Assessment and Plan Assessment: 1. Innominate artery stenosis, status post angiogram 2. Mental status change, unresponsiveness 3. History of benign positional vertigo 4. Hypertension 5. Hyperlipidemia 6. Syncope 7. History of lung cancer 8. History of tobacco use Plan: May discontinue right upper extremity arterial line. May discontinue Allen catheter. Increase ambulation as tolerated. Increase diet as tolerated. Patient may be downgraded to select care unit. In regards to innominate artery stenosis we'll continue with medical management, and no further plans for any vascular surgical intervention. Continue with aspirin, Brilinta, and statin. The impression and plan of care has been dictated as directed. I performed a history and examination of this patient, discussed the same with the dictator. I agree with the dictator's note ,documented as a scribe. Any additional findings or plans will be noted.
[2020-10-16] MEDS: DIFLUPREDNATE RIGHT EYE SCH ×2 (11:46→20:52)
[2020-10-16] MEDS: FLUDROCORTISONE 0.1 MG TAB PO SCH (11:52)
[2020-10-16] MEDS: PANTOPRAZOLE 40 MG/10 ML VIAL IV SCH (12:01)
[2020-10-16] MEDS ORDERED: NON FORMULARY DRUG (Alendronate Sodium [Fosamax] 70 MG Tablet) PO SCH (13:32)
--- NOTE | 2020-10-16 14:28 | P.PN ---
Subjective Progress Note Date: 10/16/20 Principal diagnosis: Acute hypoxic respiratory failure secondary to hypotension, most likely neurogenic shock This is a 74-year-old female with history of multiple syncopal episodes. 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 Patient was admitted for percutaneous intervention to relieve the innominate artery stenosis. Patient had the procedure in the cardiac catheterization lab, beginning the procedure, the patient became hypotensive and there was a concern that the patient may have severed CVA. Stroke team was called, patient was intubated by anesthesia, patient underwent CTA of the neck and intracranial vessels as well as CT without contrast of the brain to evaluate for hemorrhage. The neuro interventional team recommended mostly medical therapy patient was transferred to the ICU on mechanical ventilation, and she was hypotensive upon arrival to the ICU requiring fluid boluses and norepinephrine drip. As soon as the patient arrived to the ICU, I placed a right femoral triple-lumen catheter, and a right brachial arterial line. Pressure was noted to be low, more fluid boluses were given, and norepinephrine drip was started. Attempted to place a right IJ triple-lumen catheter, however I could not insert the guidewire. No further attempts were made, then the right femoral vein was cannulated easily and a triple-lumen catheter was placed. Norepinephrine was started for low blood pressure. Her ventilator settings were reviewed, her ABG showed a pO2 of over 400 pCO2 of 41 pH of 7.35. Hence her FiO2 was decreased down to 50%, and no changes were made in her present ventilator settings. Patient is now on assist control rate of 14 volume is 450 FiO2 50% and PEEP of 5 Patient was reevaluated today on 10/15/20, patient remains in the ICU, intubated and mechanically ventilated. She is on assist control rate of 14 volume is 450 FiO2 is 40% and PEEP of 5. ABG showed a pO2 of 2 or 3 pCO2 of 39 pH of 7.40. Patient remains on norepinephrine and 0.08 mcg/kg/m, she is also on propofol which I have discontinued after my evaluation. And her IV fluid at that 30 mL per hour. Patient is restless, agitated easily, but at times she seems to be following instructions, and her blood pressure remains labile. At times her bl ood pressure is extremely high, and at times is quite low, and I believe this is neurogenic in nature. Chest x-ray showed chronic changes in the right upper lobe, no acute process was noted. After evaluating the patient, I recommended a short course of pressure support and CPAP, and if the patient seems to tolerate that, I may proceed to extubating the patient. I will also recommend a repeat C T of the brain for follow-up on her last CT which questioned watershed areas, questionable hypoperfusion to the brain during her vascular procedure Reevaluated today on 10/16/20, patient was extubated yesterday, and she tolerated the extubation well. Today, the patient seems to be doing great, she is on 2 L nasal cannula, her IV fluid is at KVO, patient is alert oriented 3, and she has no gross focal neurologic deficits. She denies any headache, denies any numbness or tingling, mentation seems to be adequate. CBC is relatively normal, a left lites are normal renal profile is normal. Chest x-ray showed chronic pleural parenchymal changes/chronic Objective - Vital Signs Vital signs: Vital Signs Temp 98.1 F 10/16/20 12:00 Pulse 74 10/16/20 12:00 Resp 17 10/16/20 12:00 BP 132/74 10/16/20 12:00 Pulse Ox 95 10/16/20 12:00 Intake & Output 10/15/20 10/16/20 10/16/20 18:59 06:59 18:59 Intake Total 919.925 257.982 120 Output Total 690 910 315 Balance 229.925 -652.018 -195 Weight 68 kg Intake: IV 740 240 120 Potassium Chloride 20 meq 500 In Water For Injection 1 100ml.bag @ 50 mls/hr IVPB Q2H [facility] Rx#: [id number] Sodium Chloride 0.9% 1, 240 240 120 000 ml @ 20 mls/hr IV . Q24H [facility] Rx#:[id number] Intake, IV Titration 179.925 17.982 Amount Norepinephrine 32 mg In 44.437 17.982 Sodium Chloride 0.9% 218 ml @ 0.05 MCG/KG/MIN 1.46 mls/hr IV .Q24H [facility] Rx#: [id number] fentaNYL (PF) 1,000 mcg 96.781 In Sodium Chloride 0.9% 80 ml @ Per Protocol IV . Q0M [facility] Rx#:[id number] propofoL 1,000 mg In 38.707 Empty Bag 1 bag @ Titrate IV .Q0M [facility] Rx#: [id number] Output: Urine 690 910 315 Other: Voiding Method Indwelling Catheter Indwelling Catheter Indwelling Catheter ABP, PAP, CO, CI - Last Documented Arterial Blood Pressure 108/51 - Exam Physical Exam: Revealed a 74-year-old female on room air, in no distress. Awake, HEENT:[Neck is supple.] [No neck masses.] [No thyromegaly.] [No JVD.] Chest: [Symmetrical chest expansion clear bilaterally. Cardiac Exam: [Normal S1 and S2, no S3 gallop, 2/6 systolic murmur thought the precordium. Abdomen: [Soft, nontender, no megaly, no rebound, no guarding, normal bowel sounds.] Extremities: [No clubbing, no edema, no cyanosis.] Neurological Exam Alert and oriented 3, no gross focal deficits. Psychiatric Normal mood, affect and normal mental status examination Skin: No rashes. Lymphatics: No cervical adenopathy. - Labs CBC & Chem 7: 10/16/20 05:20 10/16/20 05:20 Labs: Abnormal Lab Results - Last 24 Hours (Table) 10/16/20 10/16/20 Range/Units 05:20 05:20 RBC 3.40 L (3.80-5.40) m/uL Hgb 10.0 L (11.4-16.0) gm/dL Hct 29.9 L (34.0-46.0) % Sodium 136 L (137-145) mmol/L Potassium 3.4 L (3.5-5.1) mmol/L Creatinine 0.47 L (0.52-1.04) mg/dL Calcium 7.9 L (8.4-10.2) mg/dL Microbiology - Last 24 Hours (Table) 10/15/20 00:21 Gram Stain - Preliminary Sputum Sputum Culture - Preliminary Assessment and Plan Assessment: Impression: High-grade innominate artery stenosis Intraoperative hypotension, this is most likely a neurogenic shock picture. Acute hypoxic respiratory failure secondary to hypotension/neurogenic shock. Possible CVA, post procedure below. Status post our aortogram with selective catheterization of the innominate artery History of multiple falls and recurrent episodes of syncope History of COPD Benign essential hypertension Dyslipidemia History of seizure disorder History of obstructive sleep apnea syndrome History of non-small cell lung cancer and previous right upper lobectomy followed by chemotherapy and radiation therapy History of Tierney esophagus History of migraine cephalgia. Recommendation: Titrate O2 and possibly discontinue if O2 saturation remains above 90% on room air. Resume home medications. Continue antiplatelet therapy as recommended by neurology. Transfer patient out of the ICU to a monitor bed on selective. Continue incentive spirometry. Ambulate. We'll continue to follow. Time with Patient: Less than 30
--- NOTE | 2020-10-16 16:34 | P.PN ---
Subjective Progress Note Date: 10/16/20 Patient was seen for a follow-up, now in the regular floor 380. Patient denies headache. She doesadmit to having some dizziness. Denies any chest pain, abdominal pain. Mentation is back to normal. patient is laying comfortably in the bed. Objective - Vital Signs Vital signs: Vital Signs Temp 98.1 F 10/16/20 12:00 Pulse 74 10/16/20 12:00 Resp 17 10/16/20 12:00 BP 132/74 10/16/20 12:00 Pulse Ox 95 10/16/20 12:00 Intake & Output 10/15/20 10/16/20 10/16/20 18:59 06:59 18:59 Intake Total 919.925 257.982 120 Output Total 690 910 315 Balance 229.925 -652.018 -195 Weight 68 kg Intake: IV 740 240 120 Potassium Chloride 20 meq 500 In Water For Injection 1 100ml.bag @ 50 mls/hr IVPB Q2H [facility] Rx#: [id number] Sodium Chloride 0.9% 1, 240 240 120 000 ml @ 20 mls/hr IV . Q24H [facility] Rx#:[id number] Intake, IV Titration 179.925 17.982 Amount Norepinephrine 32 mg In 44.437 17.982 Sodium Chloride 0.9% 218 ml @ 0.05 MCG/KG/MIN 1.46 mls/hr IV .Q24H [facility] Rx#: [id number] fentaNYL (PF) 1,000 mcg 96.781 In Sodium Chloride 0.9% 80 ml @ Per Protocol IV . Q0M [facility] Rx#:[id number] propofoL 1,000 mg In 38.707 Empty Bag 1 bag @ Titrate IV .Q0M [facility] Rx#: [id number] Output: Urine 690 910 315 Other: Voiding Method Indwelling Catheter Indwelling Catheter Indwelling Catheter ABP, PAP, CO, CI - Last Documented Arterial Blood Pressure 108/51 - Exam On examination patient is an elderly female, in no distress. Patient at times appears slightly tachypneic. Patient is alert and awake. Her speech and language functions are completely normal. She can name, repeat very well. Patient is fully oriented. On cranial nerve examination, right pupil is irregular, surgical, nonreactive. Left pupil is round and reacting. Patient has history of retinal detachment in the right eye with multiple surgeries. She only can see shadows in the right eye. Patient's visual freeman revealed some questionable intermittent neglect on the left side, but then appears normal on repeated testing. Extraocular muscles are intact. Face is symmetric, tongue protrudes to the midline. Palatal elevation and sensation normal. On muscle strength testing there is no pronator drift and the strength is normal in arms and legs. Deep tendon reflexes are 1+ and plantars downgoing. Sensory touch is equal, with no neglect. No ataxia. Tone and bulk of muscles normal. Gait deferred. - Labs CBC & Chem 7: 10/16/20 05:20 10/16/20 05:20 Labs: Abnormal Lab Results - Last 24 Hours (Table) 10/16/20 10/16/20 Range/Units 05:20 05:20 RBC 3.40 L (3.80-5.40) m/uL Hgb 10.0 L (11.4-16.0) gm/dL Hct 29.9 L (34.0-46.0) % Sodium 136 L (137-145) mmol/L Potassium 3.4 L (3.5-5.1) mmol/L Creatinine 0.47 L (0.52-1.04) mg/dL Calcium 7.9 L (8.4-10.2) mg/dL Microbiology - Last 24 Hours (Table) 10/15/20 00:21 Gram Stain - Preliminary Sputum Sputum Culture - Preliminary Assessment and Plan Assessment: * 74-year-old female admitted with elective intervention for innominate artery stenosis, at the end of the procedure developed acute mental status change, unresponsiveness and convulsion, requiring placement on mechanical vent ilation. Patient is extubated on 10/15/2020, and mentation is normal. * History of BPPV * History of lung cancer * X tobacco use * Carotid bruit. Plan: * Continue Brilinta 90 mg twice a day, aspirin 81 mg and statins. * Patient's mentation is normal, and exam is essentially nonfocal. * Follow-up with vascular surgery regarding innominate artery stenosis, likely will need medical management. * Neurologically clear
[2020-10-16] MEDS: SODIUM CHLORIDE 0.9% 1,000 ML IV SCH (17:06)
[2020-10-16] MEDS: ATORVASTATIN 80 MG TAB PO SCH (20:51)
[2020-10-16] MEDS: ESCITALOPRAM 10 MG TAB PO SCH (20:52)
[2020-10-17] MEDS: PANTOPRAZOLE 40 MG TABLET PO SCH (06:20)
[2020-10-17 08:11] LABS: Basophils # (A) 0.1 k/uL (0-0.2); Basophils % (A) 1 %; Eosinophils # (A) 0.3 k/uL (0-0.7); Eosinophils % (A) 5 %; HCT 29.5 % (34.0-46.0); HGB 9.9 gm/dL (11.4-16.0); Lymphocytes # (A) 1.1 k/uL (1.0-4.8); Lymphocytes % (A) 19 %; MCH 29.6 pg (25.0-35.0); MCHC 33.5 g/dL (31.0-37.0); MCV 88.6 fL (80.0-100.0); Mean Platelet Volume 7.3; Monocytes # (A) 0.3 k/uL (0-1.0); Monocytes % (A) 6 %; Neutrophils # (A) 4.2 k/uL (1.3-7.7); Neutrophils % (A) 68 %; Platelet Count 210 k/uL (150-450); RBC 3.33 m/uL (3.80-5.40); RDW 13.8 % (11.5-15.5); WBC 6.1 k/uL (3.8-10.6)
[2020-10-17] MEDS: MULTIVITAMINS, THERA 1 EACH TAB PO SCH (08:16)
[2020-10-17] MEDS: ASPIRIN 81 MG PO SCH (08:16)
[2020-10-17] MEDS: ASCORBIC ACID 500 MG TAB PO SCH (08:16)
[2020-10-17] MEDS: FLUDROCORTISONE 0.1 MG TAB PO SCH (08:17)
[2020-10-17] MEDS: TICAGRELOR 90 MG TAB PO SCH ×2 (08:17→19:57)
[2020-10-17 08:25] LABS: African American GFR (CKD) >90 (>60 ml/min/1.73 sqM); Anion Gap 4 mmol/L; Blood Urea Nitrogen 13 mg/dL (7-17); Calcium 8.1 mg/dL (8.4-10.2); Carbon Dioxide 27 mmol/L (22-30); Chloride 108 mmol/L (98-107); Glucose 105 mg/dL (74-99); Non-African American GFR(CKD) >90 (>60 ml/min/1.73 sqM); Potassium 3.8 mmol/L (3.5-5.1); Sodium 139 mmol/L (137-145)
--- NOTE | 2020-10-17 10:28 | P.PN ---
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 Patient is alert oriented 3 confusion resolved and patient is being discharged today most prob ably and medical management with dual antiplatelet therapy and statin is being recommended by vascular surgery because of significant calcification in this vasculature. Constitutional: Denied any fatigue denied any fever. Cardio vascular: denied any chest pain, palpitations Gastrointestinal denied any nausea vomiting Pulmonary: Denied any shortness of breath cough Neurologic denied any new focal deficits All inpatient medications were reviewed and appropriate changes in these medications as dictated in the interval history and assessment and plan. Objective - Vital Signs Vital signs: Vital Signs Temp 98.2 F 10/17/20 04:00 Pulse 75 10/17/20 04:00 Resp 18 10/17/20 04:00 BP 107/58 10/17/20 04:00 Pulse Ox 98 10/17/20 04:00 Intake & Output 10/16/20 10/17/20 10/17/20 18:59 06:59 18:59 Intake Total 360 160 240 Output Total 315 Balance 45 160 240 Weight 68.1 kg Intake: IV 120 160 Sodium Chloride 0.9% 1, 120 160 000 ml @ 20 mls/hr IV . Q24H [facility] Rx#:[id number] Oral 240 240 Output: Urine 315 Other: Voiding Method Indwelling Catheter Toilet # Voids 3 1 ABP, PAP, CO, CI - Last Documented Arterial Blood Pressure 108/51 - Exam PHYSICAL EXAMINATION: GENERAL: The patient is alert and oriented x3, not in any acute distress. Well developed, well nourished. HEENT: Pupils are round and equally reacting to light. EOMI. No scleral icterus. No conjunctival pallor. Normocephalic, atraumatic. No pharyngeal erythema. No thyromegaly. CARDIOVASCULAR: S1 and S2 present. No murmurs, rubs, or gallops. PULMONARY: Chest is clear to auscultation, no wheezing or crackles. ABDOMEN: Soft, nontender, nondistended, normoactive bowel sounds. No palpable organomegaly. MUSCULOSKELETAL: No joint swelling or deformity. EXTREMITIES: No cyanosis, clubbing, or pedal edema. NEUROLOGICAL: Gross neurological examination did not reveal any focal deficits. SKIN: No rashes. - Labs CBC & Chem 7: 10/17/20 07:44 10/17/20 07:44 Labs: Abnormal Lab Results - Last 24 Hours (Table) 10/17/20 10/17/20 Range/Units 07:44 07:44 RBC 3.33 L (3.80-5.40) m/uL Hgb 9.9 L (11.4-16.0) gm/dL Hct 29.5 L (34.0-46.0) % Chloride 108 H (98-107) mmol/L Glucose 105 H (74-99) mg/dL Calcium 8.1 L (8.4-10.2) mg/dL Microbiology - Last 24 Hours (Table) 10/15/20 00:21 Gram Stain - Final Sputum Sputum Culture - Final Assessment and Plan Plan: -Acute hypoxic respiratory failure secondary to hypotension neurogenic shock: Patient is clinically doing well at this time and most probably will be discharged. -An episode of unresponsiveness leading to seizures secondary to transient anoxia, patient is clinically doing well and most probably will be discharged -Possible metabolic encephalopathy -High-grade stenosis of innominate for which patient will will be on dual antiplatelet therapy and statin no surgical intervention is being planned at th is time -History of syncope which was believed to be secondary to subclavian steal -COPD without any acute exacerbation -Essential hypertension -Hyperlipidemia -Obstructive sleep apnea -Non-small cell lung cancer with previous lobectomy followed by chemotherapy and radiation in the past. -DVT prophylaxis: As per primary service
--- NOTE | 2020-10-17 12:22 | P.PN ---
Subjective Progress Note Date: 10/17/20 Principal diagnosis: High-grade innominate artery stenosis, mental status change The patient was seen and examined sitting up at the bedside. She denies any focal deficits. She denies any acute changes through the night. She states she has no chest pain, shortness of breath, abdominal pain, or pain in her upper or lower extremities. She denies any numbness or tingling, or weakness in the right upper extremity. She's been tolerating regular diet. Neurology is on consult. Patient states she has seizure or seizure-like activity every 2 months. She states she does not follow with a neurologist. She states the last time she seen a neurologist was well she was admitted to the hospital. She is currently not on any seizure medications. Objective - Vital Signs Vital signs: Vital Signs Temp 98.2 F 10/17/20 04:00 Pulse 75 10/17/20 04:00 Resp 18 10/17/20 04:00 BP 107/58 10/17/20 04:00 Pulse Ox 98 10/17/20 04:00 Intake & Output 10/16/20 10/17/20 10/17/20 18:59 06:59 18:59 Intake Total 360 160 240 Output Total 315 Balance 45 160 240 Weight 68.1 kg Intake: IV 120 160 Sodium Chloride 0.9% 1, 120 160 000 ml @ 20 mls/hr IV . Q24H [facility] Rx#:[id number] Oral 240 240 Output: Urine 315 Other: Voiding Method Indwelling Catheter Toilet # Voids 3 1 ABP, PAP, CO, CI - Last Documented Arterial Blood Pressure 108/51 - Exam General appearance: Alert and oriented 3. Appears in no acute distress. HET: Head is normocephalic and atraumatic. Neck: Supple without lymphadenopathy. Trachea midline. Heart: S1 S2. Regular rate and rhythm. Lungs: No crackles or wheezes are heard. Abdomen: Soft, nontender, nondistended. Extremities: Normal skin color and turgor. Palpable bilateral femoral pulses. Patient has a right femoral triple lumen. Palpable b/l radial pulses. Neurological: No focal deficits. Alert and oriented 3. Able to move bilateral upper extremities. Able to move bilateral lower extremities. - Labs CBC & Chem 7: 10/17/20 07:44 10/17/20 07:44 Labs: Abnormal Lab Results - Last 24 Hours (Table) 10/17/20 10/17/20 Range/Units 07:44 07:44 RBC 3.33 L (3.80-5.40) m/uL Hgb 9.9 L (11.4-16.0) gm/dL Hct 29.5 L (34.0-46.0) % Chloride 108 H (98-107) mmol/L Glucose 105 H (74-99) mg/dL Calcium 8.1 L (8.4-10.2) mg/dL Microbiology - Last 24 Hours (Table) 10/15/20 00:21 Gram Stain - Final Sputum Sputum Culture - Final Assessment and Plan Assessment: 1. Innominate artery stenosis, status post angiogram 2. Mental status change, unresponsiveness possible seizure 3. History of benign positional vertigo 4. Hypertension 5. Hyperlipidemia 6. Syncope 7. History of lung cancer 8. History of tobacco use Plan: Increase ambulation as tolerated. Increase diet as tolerated. In regards to innominate artery stenosis we'll continue with medical management, and no further plans for any vascular surgical intervention. Continue with aspirin, Brilinta, and statin. Will discuss with neurology regarding seizure-like activity, possible medication for discharge and follow-up. Await their recommendations. Otherwise patient can be discharged from vascular surgical standpoint. The impression and plan of care has been dictated as directed. Dr. Gastelum I performed a history and examination of this patient, discussed the same with the dictator. I agree with the dictator's note ,documented as a scribe. Any additional findings or plans will be noted.
--- NOTE | 2020-10-17 15:52 | P.PN ---
Subjective Progress Note Date: 10/17/20 Patient was seen for a follow-up. Patient denies headache. Denies any chest pain, abdominal pain. Mentation is back to normal. patient is laying comfortably in the bed. Patient tells me that she has been having episodes of possible seizure versus syncope since December 2019. She had one on 01/23/2020, 03/31/2020, May 2020, and 08/02/2020. With one of the spell, patient was sitting in chair in her arms and legs stiffened up and she was out. With another event, she was sitting in the dining chair, fell, and passed out. Her time she was found on the floor. Although vasovagal syncope or syncope related to subclavian steal was considered. Patient had another event while having a procedure on innominate artery. Again, it was probably due to acute drop in blood pressure from systolics 180s down to systolic 70s, as per documentation from the nurse report Vanesa Davies RN during procedure on 10/14/2020. This probably was syncopal spell from hemodynamic dysfunction during the procedu re, however seizure is also a remote possibility. Objective - Vital Signs Vital signs: Vital Signs Temp 97.8 F 10/17/20 08:00 Pulse 75 10/17/20 14:00 Resp 18 10/17/20 14:00 BP 128/82 10/17/20 08:00 Pulse Ox 98 10/17/20 08:00 Intake & Output 10/16/20 10/17/20 10/17/20 18:59 06:59 18:59 Intake Total 360 160 240 Output Total 315 Balance 45 160 240 Weight 68.1 kg Intake: IV 120 160 Sodium Chloride 0.9% 1, 120 160 000 ml @ 20 mls/hr IV . Q24H [facility] Rx#:[id number] Oral 240 240 Output: Urine 315 Other: Voiding Method Indwelling Catheter Toilet Toilet # Voids 3 1 ABP, PAP, CO, CI - Last Documented Arterial Blood Pressure 108/51 - Exam On examination patient is an elderly female, in no distress. Patient at times appears slightly tachypneic. Patient is alert and awake. Her speech and language functions are completely normal. She can name, repeat very well. Patient is fully oriented. On cranial nerve examination, right pupil is irregular, surgical, nonreactive. Left pupil is round and reacting. Patient has history of retinal detachment in the right eye with multiple surgeries. She only can see shadows in the right eye. Visual freeman are full on confrontation today. No neglect on double simultaneous stimulation. Extraocular muscles are intact. Face is symmetric, tongue protrudes to the midline. Palatal elevation and sensation normal. On muscle strength testing there is no pronator drift and the strength is normal in arms and legs. Deep tendon reflexes are 1+ and plantars downgoing. Sensory touch is equal, with no neglect. No ataxia. Tone and bulk of muscles normal. Gait deferred. - Labs CBC & Chem 7: 10/17/20 07:44 10/17/20 07:44 Labs: Abnormal Lab Results - Last 24 Hours (Table) 10/17/20 10/17/20 Range/Units 07:44 07:44 RBC 3.33 L (3.80-5.40) m/uL Hgb 9.9 L (11.4-16.0) gm/dL Hct 29.5 L (34.0-46.0) % Chloride 108 H (98-107) mmol/L Glucose 105 H (74-99) mg/dL Calcium 8.1 L (8.4-10.2) mg/dL Microbiology - Last 24 Hours (Table) 10/15/20 00:21 Gram Stain - Final Sputum Sputum Culture - Final Assessment and Plan Assessment: * 74-year-old female admitted with elective intervention for innominate artery stenosis, at the end of the procedure developed acute mental status change, unresponsiveness and convulsion, with severe drop in blood pressure from 180 systolic down to 70 systolic, requiring placement on mechanical ventilation. Patient was extubated on 10/15/2020, and her current mentation is completely normal. * History of BPPV * History of lung cancer * X tobacco use * Carotid bruit. Plan: * Continue Brilinta 90 mg twice a day, aspirin 81 mg and statins. * Patient's mentation is normal, and exam is essentially nonfocal. * Medical management for innominate artery stenosis, no further intervention indicated per vascular surgery. * Patient's previous EEG was technically limited due to myogenic activity. We will repeat EEG. If the EEG is abnormal, then we will place her on seizure medication. However if EEG is normal, will not place her on seizure medication, as her syncopal spells were possibly from subclavian steal, for which she has undergone stenting recently. If she continues to have recurrent spells from now on, then she may be a candidate for antiepileptic medication. * Discussed with vascular surgery in detail.
[2020-10-17] MEDS: SODIUM CHLORIDE 0.9% 1,000 ML IV SCH (18:04)
[2020-10-17] MEDS: DIFLUPREDNATE RIGHT EYE SCH ×2 (18:04→19:58)
[2020-10-17 19:50] VITALS: RESP 16
[2020-10-17] MEDS: ATORVASTATIN 80 MG TAB PO SCH (19:57)
[2020-10-17] MEDS: ESCITALOPRAM 10 MG TAB PO SCH (19:57)
[2020-10-18] MEDS: PANTOPRAZOLE 40 MG TABLET PO SCH (06:21)
[2020-10-18] MEDS: DIFLUPREDNATE RIGHT EYE SCH (07:33)
[2020-10-18] MEDS: ASPIRIN 81 MG PO SCH (07:46)
[2020-10-18] MEDS: TICAGRELOR 90 MG TAB PO SCH (07:46)
[2020-10-18] MEDS: MULTIVITAMINS, THERA 1 EACH TAB PO SCH (07:47)
[2020-10-18] MEDS: ASCORBIC ACID 500 MG TAB PO SCH (07:47)
[2020-10-18] MEDS: FLUDROCORTISONE 0.1 MG TAB PO SCH (07:47)
[2020-10-18 08:16] VITALS: PULSE 86
--- NOTE | 2020-10-18 09:02 | P.PN ---
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 Patient is alert oriented 3 confusion resolved and patient is being discharged today most prob ably and medical management with dual antiplatelet therapy and statin is being recommended by vascular surgery because of significant calcification in this vasculature. 10/18/2020 Neurology is recommending another EEG because of which patient ended up staying the hospital patient is having EEG today and after that if cleared by neurology patient most probably will be discharged today. Constitutional: Denied any fatigue denied any fever. Cardio vascular: denied any chest pain, palpitations Gastrointestinal denied any nausea vomiting Pulmonary: Denied any shortness of breath cough Neurologic denied any new focal deficits All inpatient medications were reviewed and appropriate changes in these medications as dictated in the interval history and assessment and plan. Objective - Vital Signs Vital signs: Vital Signs Temp 98.3 F 10/18/20 08:00 Pulse 86 10/18/20 08:00 Resp 16 10/18/20 08:00 BP 119/67 10/18/20 08:00 Pulse Ox 95 10/18/20 08:00 Intake & Output 10/17/20 10/18/20 10/18/20 18:59 06:59 18:59 Intake Total 480 Balance 480 Weight 62.6 kg Intake: Oral 480 Other: Voiding Method Toilet Toilet # Voids 1 0 # Bowel Movements 0 ABP, PAP, CO, CI - Last Documented Arterial Blood Pressure 108/51 - Exam PHYSICAL EXAMINATION: GENERAL: The patient is alert and oriented x3, not in any acute distress. Well developed, well nourished. HEENT: Pupils are round and equally reacting to light. EOMI. No scleral icterus. No conjunctival pallor. Normocephalic, atraumatic. No pharyngeal erythema. No thyromegaly. CARDIOVASCULAR: S1 and S2 present. No murmurs, rubs, or gallops. PULMONARY: Chest is clear to auscultation, no wheezing or crackles. ABDOMEN: Soft, nontender, nondistended, normoactive bowel sounds. No palpable organomegaly. MUSCULOSKELETAL: No joint swelling or deformity. EXTREMITIES: No cyanosis, clubbing, or pedal edema. NEUROLOGICAL: Gross neurological examination did not reveal any focal deficits. SKIN: No rashes. - Labs CBC & Chem 7: 10/17/20 07:44 10/17/20 07:44 Labs: Microbiology - Last 24 Hours (Table) 10/15/20 00:21 Gram Stain - Final Sputum Sputum Culture - Final Assessment and Plan Plan: -Acute hypoxic respiratory failure secondary to hypotension neurogenic shock: Patient is clinically doing well at this time and most probably will be discharged. -An episode of unresponsiveness leading to seizures secondary to transient anoxia, patient is clinically doing well and most probably will be discharged -Possible metabolic encephalopathy -High-grade stenosis of innominate for which patient will will be on dual antiplatelet therapy and statin no surgical intervention is being planned at this time -History of syncope which was believed to be secondary to subclavian steal -COPD without any acute exacerbation -Essential hypertension -Hyperlipidemia -Obstructive sleep apnea -Non-small cell lung cancer with previous lobectomy followed by chemotherapy and radiation in the past. -DVT prophylaxis: As per primary service
--- NOTE | 2020-10-18 12:29 | P.DS ---
Providers Date of admission: 10/14/20 14:39 Expected date of discharge: 10/18/20 Attending physician: Jerry Gastelum, DO Consults: 10/14/20 14:23 Consult Physician Urgent Consulting Provider: Leif Arias Consult Reason/Comments: neuro changes after undergoing angiogram, r/o CVA Do you want consulting provider notified?: Yes Placement Type Exists?: Yes 10/14/20 15:16 Consult Physician Stat Consulting Provider: Humberto Griggs Consult Reason/Comments: icu management Do you want consulting provider notified?: Already Contacted 10/15/20 13:33 Consult Physician Stat Consulting Provider: Holli Dickens Consult Reason/Comments: medical management Do you want consulting provider notified?: Already Contacted Primary care physician: Christina Rob Hospital Course: High-grade innominate artery stenosis, mental status change The patient came in Wednesday for a scheduled outpatient angiogram for for innominate artery stenosis. The procedure could not be performed due to risk of dissection, all catheters, wires and sheaths were withdrawn and pressure was held on both puncture sites. At that time should became hypotensive and appeared to suffer possible CVA. Stroke team was called. Anesthesia intubated the patient and the patient was brought to the ICU. ALLERGY was placed on consult CT angiogram of head and neck showed no significant stenosis or aneurysm at level of quechan of [place]. No significant change from prior MRA quechan of [place]. There is new stent graft in the left subclavian artery. No new significant stenosis in the common or internal carotid arteries bilaterally. Tortuous course of the common carotid arteries bilaterally remains present. CT of brain showed no evidence of acute hemorrhage. Patchy low-attenuation the white matter is nonspecific but most likely on the basis of remote ischemia given appears similar to prior exam. Neurology has been on consult with the patient, she had a repeat EEG done today which Dr. Roblero described as mildly abnormal. He discussed with the patient possible options that would include outpatient follow-up with neurology and a 24-hour EEG, versus starting the patient on medication now. The patient and Dr. Roblero agreed to starting the patient on Keppra 500 mg twice a day. She is to follow-up with the neurologist in [place]. Assessment: The patient was seen and examined sitting up at the bedside. She denies any focal deficits. She denies any acute changes through the night. She states she has no chest pain, shortness of breath, abdominal pain, or pain in her upper or lower extremities. She denies any numbness or tingling, or weakness in the right upper extremity. She's been tolerating regular diet. Neurology is on consult. Patient states she has seizure or seizure-like activity every 2 months. She states she does not follow with a neurologist. She states the last time she seen a neurologist was well she was admitted to the hospital. She is currently not on any seizure medications. General appearance: The patient is alert, oriented, in no acute distress. HET: Head is normocephalic and atraumatic. Heart: S1 S2. Regular rate and rhythm. Lungs: No crackles or wheezes are heard. Abdomen: Soft, nontender, nondistended. Extremities: Normal skin color and turgor. No cyanosis, rash, ulceration, clubbing, or edema. Palpable bilateral radial pulses. Neurological: No focal deficits. Strength and sensation are grossly intact. Assessment: 1. Innominate artery stenosis, status post angiogram 2. Mental status change, unresponsiveness possible seizure 3. History of benign positional vertigo 4. Hypertension 5. Hyperlipidemia 6. Syncope 7. History of lung cancer 8. History of tobacco use The above dictated assessment and findings were discussed with Dr. Allen. The impression and plan of care have been directed as dictated. Procedures: Right subclavian artery angiogram Patient Condition at Discharge: Good Plan - Discharge Summary Discharge Rx Participant: Yes New Discharge Prescriptions: New Ticagrelor [Brilinta] 90 mg PO BID 30 Days #60 tab Continue Omeprazole [PriLOSEC] 20 mg PO BID Albuterol Sulfate [Ventolin HFA] 2 puff INHALATION RT-Q6H PRN PRN Reason: Shortness Of Breath Tiotropium Br/Olodaterol HCl [Stiolto Respimat Inhal Hooper] 2 puff INHALATION RT-DAILY Multivitamins, Thera [Multivitamin (formulary)] 1 tab PO DAILY Difluprednate [Durezol] 1 drop RIGHT EYE BID Alendronate Sodium [Fosamax] 70 mg PO WE Aspirin 81 mg PO BID chew Atorvastatin [Lipitor] 80 mg PO HS Escitalopram [Lexapro] 10 mg PO HS Fludrocortisone [Florinef] 0.1 mg PO DAILY Ascorbic Acid [Vitamin C] 500 mg PO DAILY Zinc 50 mg PO DAILY Discontinued Clopidogrel [Plavix] 75 mg PO DAILY Discharge Medication List Omeprazole [PriLOSEC] 20 mg PO BID 04/23/16 [History] Albuterol Sulfate [Ventolin HFA] 2 puff INHALATION RT-Q6H PRN 03/31/20 [History] Alendronate Sodium [Fosamax] 70 mg PO WE 03/31/20 [History] Difluprednate [Durezol] 1 drop RIGHT EYE BID 03/31/20 [History] Multivitamins, Thera [Multivitamin (formulary)] 1 tab PO DAILY 03/31/20 [History] Tiotropium Br/Olodaterol HCl [Stiolto Respimat Inhal Hooper] 2 puff INHALATION RT-DAILY 03/31/20 [History] Aspirin 81 mg PO BID chew 04/02/20 [Rx] Atorvastatin [Lipitor] 80 mg PO HS 05/26/20 [History] Escitalopram [Lexapro] 10 mg PO HS 05/26/20 [History] Fludrocortisone [Florinef] 0.1 mg PO DAILY 05/26/20 [History] Ascorbic Acid [Vitamin C] 500 mg PO DAILY 10/10/20 [History] Zinc 50 mg PO DAILY 10/10/20 [History] Ticagrelor [Brilinta] 90 mg PO BID 30 Days #60 tab 10/17/20 [Rx] Follow up Appointment(s)/Referral(s): Jerry Gastelum DO [Doctor of Osteopathic Medicine] - 2 Weeks [facility], [NON-STAFF] - Activity/Diet/Wound Care/Special Instructions: Call and make appointment with neurologist in [facility]. Contact information: Dr. Monica Reynolds [address], [address] [facility], phone [phone] Discharge Disposition: HOME SELF-CARE
[2020-10-18 15:16] VITALS: BP 121/76; TEMP 98.1
--- NOTE | 2020-10-19 20:45 | P.PN ---
Subjective Progress Note Date: 10/18/20 10/18/2020: Patient was sitting in the chair, in no distress. Patient offers no complaints. Denies headache, diplopia. 10/17/2020: Patient was seen for a follow-up. Patient denies headache. Denies any chest pain, abdominal pain. Mentation is back to normal. patient is laying comfortably in the bed. Patient tells me that she has been having episodes of possible seizure versus syncope since December 2019. She had one on 01/23/2020, 03/31/2020, May 2020, and 08/02/2020. With one of the spell, patient was sitting in chair in her arms and legs stiffened up and she was out. With another event, she was sitting in the dining chair, fell, and passed out. Her time she was found on the floor. Although vasovagal syncope or syncope related to subclavian steal was considered. Patient had another event while having a procedure on innominate artery. Again, it was probably due to acute drop in blo od pressure from systolics 180s down to systolic 70s, as per documentation from the nurse report Vanesa Davies RN during procedure on 10/14/2020. This probably was syncopal spell from hemodynamic dysfunction during the procedure, however seizure is also a remote possibility. Objective - Vital Signs Vital signs: Vital Signs Temp 98.3 F 10/18/20 08:00 Pulse 86 10/18/20 08:00 Resp 16 10/18/20 08:00 BP 119/67 10/18/20 08:00 Pulse Ox 95 10/18/20 08:00 Intake & Output 10/17/20 10/18/20 10/18/20 18:59 06:59 18:59 Intake Total 480 240 Balance 480 240 Weight 62.6 kg Intake: Oral 480 240 Other: Voiding Method Toilet Toilet # Voids 1 0 0 # Bowel Movements 0 0 ABP, PAP, CO, CI - Last Documented Arterial Blood Pressure 108/51 - Exam On examination patient is an elderly female, in no distress. Patient is alert and awake. Her speech and language functions are completely normal. She can name, repeat very well. Patient is fully oriented. On cranial nerve examination, right pupil is irregular, surgical, nonreactive. Left pupil is round and reacting. Patient has history of retinal detachment in the right eye with multiple surgeries. She only can see shadows in the right eye. Visual freeman are full on confrontation today. No neglect on double simultaneous stimulation. Extraocular muscles are intact. Face is symmetric, tongue protrudes to the midline. Palatal elevation and sensation normal. On muscle strength testing there is no pronator drift and the strength is normal in arms and legs. Deep tendon reflexes are 1+ and plantars downgoing. Sensory touch is equal, with no neglect. No ataxia. Tone and bulk of muscles normal. Gait deferred. - Labs CBC & Chem 7: 10/17/20 07:44 10/17/20 07:44 Labs: Microbiology - Last 24 Hours (Table) 10/15/20 00:21 Gram Stain - Final Sputum Sputum Culture - Final Assessment and Plan Assessment: * 74-year-old female admitted with elective intervention for innominate artery stenosis, at the end of the procedure developed acute mental status change, unresponsiveness and convulsion, with severe drop in blood pressure from 180 systolic down to 70 systolic, requiring placement on mechanical ventilation. Patient was extubated on 10/15/2020, and her current mentation is completely normal. * History of BPPV * History of lung cancer * X tobacco use * Carotid bruit. Plan: * Patient underwent EEG today, which was abnormal due to presence of intermittent slowing with rhythmic occipitally predominant 5-6 Hz theta activity, suggestive of encephalopathy. * Although her EEG was abnormal, but did not reveal any epileptiform activity. I discussed with patient about further testing including 24 hours ambulatory EEG to further evaluate for any epileptiform activity versus empirically starting antiepileptic medication. Patient feels these have been happening very regularly in the last several months, and wants to start antiepileptic medication. Patient was given prescription of Keppra 500 mg twice a day. She will start out with 500 mg once daily for 1 week and then twice a day. Possible side effects were discussed. Patient is planning to go to [facility] for the winter on 10/26/2020. Patient was given name of a primary physician to get established in [facility]. Hopefully she will get a referral to a neurologist locally there. Patient was informed for no driving for 6 months, climbing ladders or operating dangerous machinery or swimming * Continue Brilinta 90 mg twice a day, aspirin 81 mg and statins. * Medical management for innominate artery stenosis, no further intervention indicated per vascular surgery. * Discussed with vascular surgery in detail.
--- NOTE | 2020-10-20 22:58 | EEG ---
ELECTROENCEPHALOGRAM REPORT DATE OF SERVICE: 10/18/2020 PREAMBLE: This is a 74-year-old female with history of recurrent syncopal spells versus seizure. This study is performed to evaluate for any epileptiform activity. EEG FINDINGS: This is a 21 channel routine EEG recording patient utilizing 10-20 international system with referential bipolar montage. The background consists of well-developed and regulated somewhat attenuated low-voltage, fast frequency activity mixed with moderate to high amplitude rhythmic 5-6 hertz occipitally predominant, generalized theta activity. Background does not seem to be reactive to eye opening or closing. Photic driving response was not seen. No focal or generalized epileptiform activity was seen. EKG channel showed no significant arrhythmia. IMPRESSION: This is an abnormal EEG due to presence of somewhat suppressed background, mixed with intermittent moderate to high amplitude rhythmic posterior dominant 5-6 hertz generalized theta activity. This is suggestive of generalized cerebral dysfunction as can be seen with toxic metabolic encephalopathies. No definitive epileptiform activity was seen. The EEG was somewhat limited because of because of significant myogenic artifact. Suggest a 24 hours ambulatory EEG for further evaluation of any epileptiform activity if your suspicion for seizures is high. MMODL / IJN: [id number] /
== END 2020-10-18 13:59 | disposition home health service (06) | DRG 299 ==
LOC: CATHCVL 09:39 → 2SICU 14:11 → CATHCVL 14:39 → 2SICU 14:39 → 3SCARD 10-16 12:57
PROVIDERS: ADMIT Surgery; ATTEND Surgery
DX: I70.8 Atherosclerosis of other arteries (principal); R57.8 Other shock; J96.01 Acute respiratory failure with hypoxia; G93.41 Metabolic encephalopathy; G45.8 Other transient cerebral ischemic attacks and related syndromes; H33.20 Serous retinal detachment, unspecified eye; I70.208 Unspecified atherosclerosis of native arteries of extremities, other extremity; G40.909 Epilepsy, unspecified, not intractable, without status epilepticus; E78.5 Hyperlipidemia, unspecified; I10 Essential (primary) hypertension; J44.9 Chronic obstructive pulmonary disease, unspecified; K22.70 Barrett's esophagus without dysplasia; E83.9 Disorder of mineral metabolism, unspecified; G47.33 Obstructive sleep apnea (adult) (pediatric); R29.6 Repeated falls; Z91.81 History of falling; R45.1 Restlessness and agitation; R32 Unspecified urinary incontinence; G43.909 Migraine, unspecified, not intractable, without status migrainosus; Z85.118 Personal history of other malignant neoplasm of bronchus and lung; Z90.2 Acquired absence of lung [part of]; Z79.02 Long term (current) use of antithrombotics/antiplatelets; Z79.52 Long term (current) use of systemic steroids; Z79.82 Long term (current) use of aspirin; Z79.83 Long term (current) use of bisphosphonates; Z79.899 Other long term (current) drug therapy; Z82.49 Family history of ischemic heart disease and other diseases of the circulatory system; Z86.73 Personal history of transient ischemic attack (TIA), and cerebral infarction without residual deficits; Z87.891 Personal history of nicotine dependence; Z90.710 Acquired absence of both cervix and uterus; H81.10 Benign paroxysmal vertigo, unspecified ear; Z98.49 Cataract extraction status, unspecified eye; F32.9 Major depressive disorder, single episode, unspecified; K21.9 Gastro-esophageal reflux disease without esophagitis; K44.9 Diaphragmatic hernia without obstruction or gangrene; M19.90 Unspecified osteoarthritis, unspecified site; Z90.89 Acquired absence of other organs; Z92.21 Personal history of antineoplastic chemotherapy; Z92.3 Personal history of irradiation; Z83.79 Family history of other diseases of the digestive system; Z95.828 Presence of other vascular implants and grafts
CPT/HCPCS: 36222; 36600; 70450; 70496; 70498; 71045; 80048; 82805; 84132; 85025; 87070; 87205; 94002; 94003; 95816

== ENCOUNTER → 2021-04-30 | Outpatient (CLI) | payer MEDICARE ==
--- NOTE | 2021-04-30 16:43 | CONS ---
CONSULTATION DATE OF SERVICE: 04/30/2021 75-year-old lady has been evaluated in [facility] for possible obstructive sleep apnea-hypopnea syndrome. HISTORY OF PRESENT ILLNESS/SLEEP WAKE EVALUATION: SLEEP SCHEDULE: Patient's usual sleep schedule from about 3:00 am until 9:30/10:00 am. FALLING ASLEEP: She does have problems with falling asleep, although no TV in bedroom. DURING SLEEP: She usually sleeps in the side position. radiation monitor showed that she has had a significant bradycardia while she was asleep. She was told about possibly cardiac arrhythmias. She wakes up from sleep up to 4 times with 3 episodes of nocturia. She was treated with CPAP in the past, but it was many years ago and her CPAP unit was broken. DURING THE DAY/SLEEP WAKE EVALUATION: In the morning, she wakes up tired, has difficulties paying attention, problem with memory, concentration, depression and anxiety. [place] Sleepiness Scale is 5. No history of hypnagogic hallucinations, sleep paralysis or cataplexy. PAST MEDICAL HISTORY: Positive for cardiac arrhythmia, lung CA treated by a lobectomy, head CA, TIA 15 years ago, episodes of anemia, Tierney's esophagus, hiatal hernia, emphysema. CURRENT MEDICATIONS: Omeprazole 20 mg twice a day, escitalopram 5 mg once a day, atorvastatin 80 mg once a day, levetiracetam 500 mg twice a day, Keppra, Brilinta, 2 puffs a day. SOCIAL HISTORY: Positive for smoking; quit in 1999. Alcohol consumption occasional. FAMILY HISTORY: Lung problems, anemia by her daughter. PHYSICAL EXAMINATION: GENERAL: A 75-year-old lady without distress. BP 122/82, HR 73, RR 15, height 4 feet 11-1/2 inches, weight 130.4, temperature 97.1. Oxygen saturation at room air 97%. HEENT: Oropharynx extremely low position of soft palate. Mallampati IV. NECK: Supple. No JVD. Neck is 13 inches in circumference. LUNGS: Clear to percussion and to auscultation. Good air exchange. No wheezing or rhonchi. HEART: S1, S2 regular. No murmurs, gallops, or rubs. ABDOMEN: Soft and nontender. Bowel sounds are present. No organomegaly appreciated. Body mass is 25.8, EXTREMITIES: No clubbing or cyanosis. GIN FEEDER: Awake, alert, and oriented X3. Cranial nerves 2 to 7 intact. There is no fasciculation or atrophy. noted. No focal deficits observed. Some scoliosis. IMPRESSION: 1. Multiple awakenings from sleep, extremely low position of soft palate, history of obstructive sleep apnea-hypopnea syndrome in the past. Episodes of cardiac arrhythmia during the sleep. Obstructive sleep apnea-hypopnea syndrome. 2. History of right lung CA status post lobectomy. 3. History of transient ischemic attack. 4. History of head CA treated with radiation therapy. 5. History of cardiac arrhythmia. 6. History of emphysema. 7. History of . 8. History of anemia. 9. History of Tierney esophagus. 10.History of hiatal hernia. PLAN: 1. Polysomnography for evaluation of patient's breathing during sleep. 2. CPAP/BiPAP titration if sleep study confirms obstructive sleep apnea-hypopnea syndrome. 3. Preferable position during sleep on the side. 4. No driving if patient feels any sleepiness. 5. I will see patient for follow up visit to explain results of testing and following plan. Thank you very much for referring this patient for consultation. Sincerely, Kobi Mahoney MD, PhD, FAASM Diplomat of [employer] [facility] [place] MMPAYAL / [place]: [id number] /
== END ==
LOC: SLEEP 14:09
PROVIDERS: ATTEND Internal Medicine
DX: G47.33 Obstructive sleep apnea (adult) (pediatric) (principal); D64.9 Anemia, unspecified; J43.9 Emphysema, unspecified; F17.200 Nicotine dependence, unspecified, uncomplicated; Z85.118 Personal history of other malignant neoplasm of bronchus and lung; Z86.73 Personal history of transient ischemic attack (TIA), and cerebral infarction without residual deficits; Z85.89 Personal history of malignant neoplasm of other organs and systems; Z98.890 Other specified postprocedural states; Z86.79 Personal history of other diseases of the circulatory system; Z87.19 Personal history of other diseases of the digestive system; Z92.3 Personal history of irradiation; Z79.899 Other long term (current) drug therapy; Z91.048 Other nonmedicinal substance allergy status
CPT/HCPCS: 99211

== ENCOUNTER 2022-07-09 15:15 | Emergency (ER) | payer MEDICARE ==
[2022-07-09 15:25] VITALS: TEMP 98
[2022-07-09 15:37] VITALS: RESP 16
--- NOTE | 2022-07-09 15:44 | ED ---
General Adult HPI - General Chief complaint: Recheck/Abnormal Lab/Rx Stated complaint: Abnormal Labs Time Seen by Provider: 07/09/22 15:27 Source: patient, family, RN notes reviewed Mode of arrival: wheelchair Limitations: no limitations - History of Present Illness Initial comments: Patient is a pleasant 76-year-old female presenting to the emergency department with concern for low potassium level. Patient went to Dr. Helm's office yesterday and had blood work done. Patient did have vasovagal episode well having her blood drawn. Patient otherwise mostly has been feeling well. Patient did have palpitations couple of days ago however patient does get that occasionally. No chest pain. No dyspnea. No muscle spasms or weakness. - Related Data Home Medications Medication Instructions Recorded Confirmed Omeprazole [PriLOSEC] 20 mg PO BID 04/23/16 07/09/22 Albuterol Sulfate [Ventolin HFA] 2 puff INHALATION RT-Q6H PRN 03/31/20 07/09/22 Alendronate Sodium [Fosamax] 70 mg PO WE 03/31/20 07/09/22 Multivitamins, Thera [Multivitamin 1 tab PO DAILY 03/31/20 07/09/22 (formulary)] Atorvastatin [Lipitor] 80 mg PO HS 05/26/20 07/09/22 Escitalopram [Lexapro] 5 mg PO HS 05/26/20 07/09/22 Fludrocortisone [Florinef] 0.1 mg PO DAILY 05/26/20 07/09/22 Aspirin 81 mg PO DAILY 07/09/22 07/09/22 Difluprednate [Durezol Ophth Soln] 1 drop RIGHT EYE BID 07/09/22 07/09/22 Fluticasone/Umeclidin/Vilanter 1 puff INHALATION RT-DAILY 07/09/22 07/09/22 [Trelegy Ellipta 100-62.5-25] Mirabegron [Myrbetriq] 50 mg PO DAILY 07/09/22 07/09/22 levETIRAcetam [Keppra Xr] 500 mg PO BID 07/09/22 07/09/22 Previous Rx's Medication Instructions Recorded Ticagrelor [Brilinta] 90 mg PO BID 30 Days #60 tab 10/17/20 Potassium Chloride ER [K-Dur 20] 20 meq PO BID #6 tab 07/09/22 Allergies Allergy/AdvReac Type Severity Reaction Status Date / Time adhesive tape Allergy Rash/Hives Verified 10/14/20 09:51 Review of Systems ROS Statement: Those systems with pertinent positive or pertinent negative responses have been documented in the HPI. ROS Other: All systems not noted in ROS Statement are negative. Constitutional: Denies: fever Eyes: Denies: eye pain ENT: Denies: ear pain Respiratory: Denies: cough, dyspnea Cardiovascular: Reports: as per HPI, palpitations. Denies: chest pain Endocrine: Denies: fatigue Gastrointestinal: Denies: abdominal pain, nausea, vomiting, diarrhea Genitourinary: Denies: dysuria Musculoskeletal: Denies: back pain Skin: Denies: rash Neurological: Denies: weakness Past Medical History Past Medical History: Cancer, COPD, CVA/TIA, Eye Disorder, GERD/Reflux, Hyperlipidemia, Hypertension, Osteoarthritis (OA), Seizure Disorder, Sleep Apnea/CPAP/BIPAP, Syncope Additional Past Medical History / Comment(s): hx of lung cancer with upper right lobe removed & received chemo & radiation tx. Barretts esophagus, hiatal hernia, incont of urine wears depends, tia 15 yrs. ago-no residual effects,, migraines, no c-pap machine, DDD. , SOB with activity, episodes of passing out, ?seizures, osteopenia, detached retina right eye after cataract surg. Cont. to see shadows from her R eye. History of Any Multi-Drug Resistant Organisms: None Reported Past Surgical History: Bladder Surgery, Heart Catheterization, Heart Catheterization With Stent, Hysterectomy, Tonsillectomy Additional Past Surgical History / Comment(s): rectocele,cystocele(3 sx total has mesh patch), lasik eye sx, cyst removed lt breast-benign,blepharoplasty, sep 05 2015 upper lobe rt lung removed, cancerous lump removed from back of [id number] radiation tx. after, EPIDURAL pain procedure, loop recorder insertion, cataracts removed Past Anesthesia/Blood Transfusion Reactions: No Reported Reaction Date of Last Stent Placement:: 2019 Past Psychological History: Depression Smoking Status: Former smoker Past Alcohol Use History: Rare Past Drug Use History: None Reported - Past Family History Father Family Medical History: Liver Disease Additional Family Medical History / Comment(s): CIRRHOIS OF THE LIVER Mother Family Medical History: Congestive Heart Failure (CHF) Additional Family Medical History / Comment(s): LUNG DISEASE, 02 DEPENDANT- SMOKED FROM AGE 13 TILL AGE 85. General Exam Limitations: no limitations General appearance: alert, in no apparent distress Head exam: Present: normocephalic Eye exam: Present: normal appearance Neck exam: Present: normal inspection Respiratory exam: Present: normal lung sounds bilaterally Cardiovascular Exam: Present: regular rate, normal rhythm GI/Abdominal exam: Present: soft. Absent: tenderness Extremities exam: Present: normal inspection Neurological exam: Present: alert, CN II-XII intact. Absent: motor sensory deficit Expanded Motor strength exam: RUE: 5, LUE: 5, RLE: 5, LLE: 5 Psychiatric exam: Present: normal affect, normal mood Skin exam: Present: normal color Course Vital Signs 07/09/22 07/09/22 07/09/22 15:20 15:35 16:47 Temperature 98.0 F Pulse Rate 94 75 65 Respiratory 18 16 16 Rate Blood Pressure 124/69 144/85 120/65 O2 Sat by Pulse 94 L 98 99 Oximetry EKG Findings - EKG Comments: EKG Findings:: Sinus rhythm. DC 112. QRS 97. QT 382. QTC 427. Normal axis. LVH criteria. Nonspecific ST-T. Medical Decision Making - Medical Decision Making Case was discussed with tim Bailey with [facility], covering Dr. Ben Sandoval. They do agree with potassium replacement and recommend discharge with close follow-up and repeat testing. Patient reevaluated and updated. - Lab Data Result diagrams: 07/09/22 15:45 07/09/22 15:45 Lab Results 07/09/22 07/09/22 07/09/22 Range/Units 15:45 15:45 15:45 WBC 9.3 (3.8-10.6) k/uL RBC 4.41 (3.80-5.40) m/uL Hgb 12.2 (11.4-16.0) gm/dL Hct 36.5 (34.0-46.0) % MCV 82.7 (80.0-100.0) fL MCH 27.6 (25.0-35.0) pg MCHC 33.3 (31.0-37.0) g/dL RDW 16.0 H (11.5-15.5) % Plt Count 456 H (150-450) k/uL MPV 7.3 Neutrophils % 74 % Lymphocytes % 19 % Monocytes % 4 % Eosinophils % 1 % Basophils % 1 % Neutrophils # 6.9 (1.3-7.7) k/uL Lymphocytes # 1.7 (1.0-4.8) k/uL Monocytes # 0.4 (0-1.0) k/uL Eosinophils # 0.1 (0-0.7) k/uL Basophils # 0.1 (0-0.2) k/uL Anisocytosis Slight PT 10.5 (9.0-12.0) sec INR 1.0 (<1.2) APTT 29.5 (22.0-30.0) sec Sodium 140 (137-145) mmol/L Potassium 2.7 L* (3.5-5.1) mmol/L Chloride 94 L (98-107) mmol/L Carbon Dioxide 31 H (22-30) mmol/L Anion Gap 15 mmol/L BUN 25 H (7-17) mg/dL Creatinine 0.61 (0.52-1.04) mg/dL Est GFR (CKD-EPI)AfAm >90 (>60 ml/min/1.73 sqM) Est GFR (CKD-EPI)NonAf 88 (>60 ml/min/1.73 sqM) Glucose 91 (74-99) mg/dL Calcium 9.4 (8.4-10.2) mg/dL Ionized Calcium Freda 4.8 (4.5-5.3) mg/dL Phosphorus 3.3 (2.5-4.5) mg/dL Magnesium 1.6 (1.6-2.3) mg/dL Total Bilirubin 0.6 (0.2-1.3) mg/dL AST 29 (14-36) U/L ALT 18 (4-34) U/L Alkaline Phosphatase 143 H (38-126) U/L Total Protein 7.2 (6.3-8.2) g/dL Albumin 3.5 (3.5-5.0) g/dL TSH 2.140 (0.465-4.680) mIU/L Free T4 1.31 (0.78-2.19) ng/dL Free T3 pg/mL 3.0 (2.8-5.3) pg/ml Disposition Clinical Impression: Hypokalemia Disposition: HOME SELF-CARE Condition: Stable Instructions (If sedation given, give patient instructions): Hypokalemia (ED) Additional Instructions: Prescription sent to pharmacy. Please do follow-up to primary care physician in the next one to 2 days for recheck and have potassium level redrawn. If unable to follow up with primary care physician U may return to emergency department to have this redrawn. Return for change in heart rate, weakness or muscle spasms, worsening symptoms or other concerns Prescriptions: Potassium Chloride ER [K-Dur 20] 20 meq PO BID #6 tab Is patient prescribed a controlled substance at d/c from ED?: No Referrals: Rayo Shafer MD [STAFF PHYSICIAN] - 1-2 days Wallace Song DO [Primary Care Provider] - 1-2 days Time of Disposition: 17:22
[2022-07-09 16:08] LABS: Anisocytosis Slight; Basophils # (A) 0.1 k/uL (0-0.2); Basophils % (A) 1 %; Eosinophils # (A) 0.1 k/uL (0-0.7); Eosinophils % (A) 1 %; HCT 36.5 % (34.0-46.0); HGB 12.2 gm/dL (11.4-16.0); Lymphocytes # (A) 1.7 k/uL (1.0-4.8); Lymphocytes % (A) 19 %; MCH 27.6 pg (25.0-35.0); MCHC 33.3 g/dL (31.0-37.0); MCV 82.7 fL (80.0-100.0); Mean Platelet Volume 7.3; Monocytes # (A) 0.4 k/uL (0-1.0); Monocytes % (A) 4 %; Neutrophils # (A) 6.9 k/uL (1.3-7.7); Neutrophils % (A) 74 %; Platelet Count 456 k/uL (150-450); RBC 4.41 m/uL (3.80-5.40); WBC 9.3 k/uL (3.8-10.6)
[2022-07-09 16:17] LABS: Ionized Calcium 4.8 mg/dL (4.5-5.3)
[2022-07-09 16:18] LABS: ALT 18 U/L (4-34); AST 29 U/L (14-36); African American GFR (CKD) >90 (>60 ml/min/1.73 sqM); Albumin 3.5 g/dL (3.5-5.0); Alkaline Phosphatase 143 U/L (38-126); Anion Gap 15 mmol/L; Blood Urea Nitrogen 25 mg/dL (7-17); Calcium 9.4 mg/dL (8.4-10.2); Carbon Dioxide 31 mmol/L (22-30); Chloride 94 mmol/L (98-107); Glucose 91 mg/dL (74-99); Magnesium 1.6 mg/dL (1.6-2.3); Non-African American GFR(CKD) 88 (>60 ml/min/1.73 sqM); Phosphorus 3.3 mg/dL (2.5-4.5); Sodium 140 mmol/L (137-145); Total Bilirubin 0.6 mg/dL (0.2-1.3); Total Protein 7.2 g/dL (6.3-8.2)
[2022-07-09 16:22] LABS: Potassium 2.7 mmol/L (3.5-5.1)
[2022-07-09 16:26] LABS: Partial Thromboplastin Time 29.5 sec (22.0-30.0); Prothrombin Time 10.5 sec (9.0-12.0)
[2022-07-09 16:33] LABS: T4, Free (Free Thyroxine) 1.31 ng/dL (0.78-2.19)
--- NOTE | 2022-07-09 16:35 | XR ---
EXAMINATION TYPE: XR chest 1V portable DATE OF EXAM: 07/09/2022 COMPARISON: Unavailable HISTORY: Weakness TECHNIQUE: Single frontal view of the chest is obtained. FINDINGS: There is volume loss in the right hemithorax, abnormal scarring is present in the right up per lobe, surgical clip present. No evident pneumothorax. Suspect hyperinflation which may be compens atory the left chest. Loop recorder is present over the left lower chest. No evident pleural effusion . Heart is obscured and not felt likely to be enlarged. Aorta is dense. IMPRESSION: Findings in the right hemithorax felt likely to be chronic. Comparison with old chest x- ray could BE performed to assess for any interval change. Addended report can be performed when the o ld chest x-ray becomes available.
[2022-07-09] MEDS ORDERED: POTASSIUM CHLORIDE ER 20 MEQ TAB.ER PO STA ×2 (16:44→17:19)
[2022-07-09] MEDS ORDERED: POTASSIUM CHLORIDE 20 MEQ in WATER FOR INJECTION 1 100ML.BAG IVPB STA (16:47)
[2022-07-09 16:48] VITALS: BP 120/65; PULSE 65
== END 2022-07-09 20:06 | disposition home or self-care (01) ==
LOC: EC 15:15
DX: E87.6 Hypokalemia (principal); J44.9 Chronic obstructive pulmonary disease, unspecified; K21.9 Gastro-esophageal reflux disease without esophagitis; Z86.73 Personal history of transient ischemic attack (TIA), and cerebral infarction without residual deficits; E78.5 Hyperlipidemia, unspecified; I10 Essential (primary) hypertension; M19.90 Unspecified osteoarthritis, unspecified site; F32.A Depression, unspecified; Z87.891 Personal history of nicotine dependence; Z88.8 Allergy status to other drugs, medicaments and biological substances; Z79.82 Long term (current) use of aspirin; Z79.51 Long term (current) use of inhaled steroids; Z79.899 Other long term (current) drug therapy
CPT/HCPCS: 36415; 93005; 84439; 84481; 80053; 82330; 83605; 83735; 84100; 84443; 85025; 85610; 85730; 71045; 99285; 96365; 96366; J3480

== ENCOUNTER → 2022-07-30 | Outpatient (CLI) | payer MEDICARE ==
--- NOTE | 2022-07-30 09:41 | CT ---
EXAMINATION TYPE: CT brain wo con DATE OF EXAM: 07/30/2022 COMPARISON: 10/15/2020 HISTORY: Personal history of malignant neoplasm, abnormal weight loss, other fatigue CT DLP: [address] of the brain was performed. The ventricles, basal cisterns and sulci overlying the cerebral convexities demonstrate mild enlargem ent. There is no evidence for intracranial hemorrhage or sulcal effacement. There is decreased attenuation about the periventricular white matter and deep white matter of both c erebral hemispheres, compatible with chronic small vessel ischemia. Differential diagnosis does inclu de demyelination. No mass effects are seen.No midline shift. Osseous calvarium is intact. Right ocular implant. If symptoms persist consider MRI. IMPRESSION: 1. Age related atrophic and chronic small vessel ischemic change without acute intracranial process s een at this time.
--- NOTE | 2022-07-30 10:14 | CT ---
EXAMINATION TYPE: CT ChestAbdPelvis wo con DATE OF EXAM: 07/30/2022 COMPARISON: 04/26/2016 HISTORY: Personal history of malignant neoplasm, abnormal weight loss, other fatigue CT DLP: 724mGycm Unenhanced CT of the Chest, Abdomen and Pelvis Unenhanced CT of the chest ,abdomen and pelvis is performed. The lack of intravenous contrast limits evaluation of the solid and hollow viscera. Oral contrast: None CT Chest: LUNGS: Partial pneumonectomy change right upper lobe. There are multiple clips seen with associated p leural thickening and cavitation. Within the remainder of the right lung there are patchy nodular are as identified which may reflect infiltrate however recurrent neoplasm is not excluded. Hyperinflation of the left lung which demonstrates mild subpleural fibrosis at the left lung base. MEDIASTINUM: Thoracic aorta is of normal caliber. The heart is not enlarged. Coronary artery calci fications identified. No evidence for mediastinal mass or adenopathy. Moderate fixed hiatal hernia. HILAR STRUCTURES: No evidence for mass. No hilar adenopathy is appreciated. OTHER: No significant abnormality. CONTRAST CT ABDOMEN AND PELVIS: LIVER/GB: No calcified gallstones. No space occupying hepatic lesion. Biliary tree is of normal ca liber. PANCREAS: No inflammation. No distinct mass. SPLEEN: No splenic enlargement. No lesion seen. ADRENALS: No nodule. No thickening. KIDNEYS/BLADDER: No hydronephrosis. No nephrolithiasis. No disctinct renal mass. BOWEL: Normal appendix. Normal bowel caliber. No inflammation. Scattered sigmoid diverticulosis wit hout diverticulitis. GENITAL ORGANS: Right ovarian cystic lesion measures 2.3 cm. Hysterectomy changes noted. No left adne xal mass. LYMPH NODES: No greater than 1cm abdominal or pelvic lymph nodes are appreciated. AORTA: No significant abnormality. OSSEOUS STRUCTURES: No significant abnormality is seen. OTHER: No significant additional abnormality is seen. IMPRESSION: 1. Partial right upper lobectomy change with the increased pleural thickening and apparent cavitation right upper lobe. There are also multiple nodular areas of infiltrate throughout the right lung. Rec urrent neoplasm is not excluded. Superimposed pneumonia also a consideration. PET CT recommended. 2. Right ovarian cyst. Correlate with ultrasound.
== END | disposition home or self-care (01) ==
LOC: RADCTMAIN 08:30
PROVIDERS: ATTEND Family Medicine
DX: G31.1 Senile degeneration of brain, not elsewhere classified (principal); I67.82 Cerebral ischemia; R63.4 Abnormal weight loss; R53.83 Other fatigue; Z85.118 Personal history of other malignant neoplasm of bronchus and lung
CPT/HCPCS: 70450; 71250; 74176

== ENCOUNTER → 2022-08-21 | Outpatient (CLI) | payer MEDICARE ==
--- NOTE | 2022-08-23 09:46 | PE ---
EXAMINATION TYPE: PET CT fusion skull to thigh DATE OF EXAM: 08/21/2022 COMPARISON: Most recent full body CT July 30, 2022 and older CTs HISTORY: Abnormal CT, significant weight loss. History of treated right-sided lung cancer with new ab normal CT TECHNIQUE: Following the intravenous administration of 11.81 mCi of F-18 FDG, whole body images are performed from the skull base to the midthigh. Images are reviewed on the computer in the coronal, a xial, and sagittal planes. Reconstructed rotating images are created on independent workstation and reviewed on the computer. A localization and attenuation correction CT is performed in conjunction with the PET scan. Blood glucose level equals 80 SCAN: Initial Scan FINDINGS: SKULL BASE AND NECK: No areas of abnormal hypermetabolic uptake. CHEST, MEDIASTINUM, AND HILAR REGION: Redemonstration of right-sided posttreatment change with right- sided volume loss and areas of surgical scarring in the upper lung extending towards the hilum. There is consolidation with air bronchograms right upper lung axial image 60 with abnormal hypermetabolic uptake, Max SUV is 6.49. Additional areas of irregular consolidation throughout the right mid to lowe r lung become slightly more nodular and thus suspicious. For reference there is 2.2 x 1.4 cm anterior nodule or nodular consolidation right mid to lower lung axial image 81 has a max SUV of 5.03. For re ference there is more rounded areas of consolidation or nodularity posterior right lung base axial im age 89, max SUV is 5.88. No abnormal hypermetabolic uptake in the mediastinum. No abnormal hypermetabolic uptake in the hypere xpanded left lung. ABDOMEN AND PELVIS: No areas of abnormal hypermetabolic uptake. OSSEOUS STRUCTURES: No areas of abnormal hypermetabolic uptake. OTHER CT: Overlying loop recorder redemonstrated. Coronary artery calcification again seen. Moderate size hiatal hernia redemonstrated. Scattered colonic diverticula greatest in the sigmoid colon redemonstrated. Scattered pelvic phleboli ths. Uterus surgically absent. IMPRESSION: Right-sided posttreatment changes redemonstrated. Abnormal findings in the right lung elia w continued progression from July 30 CT. While the findings could reflect infectious process, re current neoplasm has to be considered given patient's symptoms of weight loss and findings not resolv ing but becoming more prominent since most recent CT. Advise oncology referral.
== END | disposition home or self-care (01) ==
LOC: RADPETMAIN 15:25
PROVIDERS: ATTEND Physician Assistant
DX: R91.8 Other nonspecific abnormal finding of lung field (principal); R19.8 Other specified symptoms and signs involving the digestive system and abdomen; Z85.118 Personal history of other malignant neoplasm of bronchus and lung
CPT/HCPCS: 78815; A9552